=== PATIENT | male | born 1955 | race Caucasian/White ===

== ENCOUNTER → 2019-03-25 | Outpatient (CLI) | payer MEDICARE, OTHER ==
[~2019-03-25] MED LIST: BACL10 PO; BIKTARVY 50-201 EACH PO; Biktarvy 50-200-25 M PO; COMBIVENT RESPIM4 GM INH; COMBIVENT RESPIMAT I INH; HYDR1TAB94 PO; HYDROCODONE-AC1 EAC1; IBUP400 PO; NEURONTIN300 MG PO; OMEP20ER PO; PRED20 PO; Ventolin/Prove6.7 GM; XANAX0.25 MG PO; ZESTORETIC 20-121 EA PO
[2019-03-25 21:44] LABS: Adenovirus F 40/41 Not Detected (NOT DETECT); Astrovirus Not Detected (NOT DETECT); Campylobacter Sp Not Detected (NOT DETECT); Cryptosporidium Not Detected (NOT DETECT); Cyclospora Cayetanensis Not Detected (NOT DETECT); E. Coli O157 Not Detected (NOT DETECT); Entamoeba Histolytica Not Detected (NOT DETECT); Enteroaggregative E. coli-EAEC Not Detected (NOT DETECT); Enteropathogenic E. coli-EPEC Not Detected (NOT DETECT); Enterotoxigenic E. coli-ETEC Not Detected (NOT DETECT); Giardia Lamblia Not Detected (NOT DETECT); Norovirus GI/GII Not Detected (NOT DETECT); Plesiomonas Shigelloides Not Detected (NOT DETECT); Salmonella Sp Not Detected (NOT DETECT); Shiga Toxin-prod E. coli-STEC Not Detected (NOT DETECT); Shigella/Enteroin E. coli-EIEC Not Detected (NOT DETECT); Vibrio Cholerae Not Detected (NOT DETECT); Vibrio Sp Not Detected (NOT DETECT); Yersinia Enterocolitica Not Detected (NOT DETECT)
[2019-03-25 21:45] LABS: Rotavirus A Not Detected (NOT DETECT); Sapovirus Not Detected (NOT DETECT)
== END | disposition home or self-care (01) ==
LOC: LAB SHORT 12:00 → LAB UCHC 12:00 → EDSTATUS 03-24 09:20 → LAB FUT 03-24 09:20
DX: R19.7 Diarrhea, unspecified (principal)
CPT/HCPCS: 0097U

== ENCOUNTER 2019-04-12 10:26 | Inpatient (IN) | payer MEDICARE, OTHER ==
[~2019-04-12] VITALS: Ht 175.3 cm; Wt 63.4 kg
[2019-04-12] MEDS ORDERED: ZESTORETIC 20-121 EA PO (11:20)
[2019-04-12] MEDS ORDERED: NEURONTIN300 MG PO (11:20)
[2019-04-12] MEDS ORDERED: OMEP20ER PO (11:20)
[2019-04-12] MEDS ORDERED: COMBIVENT RESPIM4 GM INH (11:20)
[2019-04-12] MEDS ORDERED: HYDROCODONE-AC1 EAC1 (11:20)
[2019-04-12] MEDS ORDERED: BACL10 PO (11:20)
[2019-04-12] MEDS ORDERED: Ventolin/Prove6.7 GM (11:21)
[2019-04-12] MEDS ORDERED: XANAX0.25 MG PO (11:21)
[2019-04-12 12:04] LABS: BASOPHILS ABSOLUTE AUTO 0.01 K/mm3 (0.00-0.23); BASOPHILS PERCENT AUTO 0 % (0-2); EOSINOPHILS PERCENT AUTO 0 % (0-6); Hematocrit 46.3 % (37.0-53.0); IMMATURE GRAN ABSOLUTE AUTO 0.03 K/mm3 (0.00-0.10); IMMATURE GRAN PERCENT AUTO 0 % (0-1); LYMPHOCYTES ABSOLUTE AUTO 0.58 K/mm3 (0.84-5.20); LYMPHOCYTES PERCENT AUTO 6 % (21-46); MONOCYTES ABSOLUTE AUTO 0.73 K/mm3 (0.16-1.47); MONOCYTES PERCENT AUTO 8 % (4-13); Mean Corpuscular HGB 31.3 pg (26.0-34.0); Mean Corpuscular HGB Conc 32.4 g/dL (31.5-36.5); Mean Corpuscular Volume 97 fL (80-100); NEUTROPHILS ABSOLUTE AUTO 8.27 K/mm3 (1.96-9.15); NEUTROPHILS PERCENT AUTO 86 % (41-73); Platelet Count 101 K/mm3 (150-400); RDW Coefficient Variation 13.2 % (11.7-14.2); RDW Standard Deviation 47.5 fL (35.1-46.3); Red Blood Cell Count 4.79 M/mm3 (4.30-5.90); White Blood Cell Count 9.62 K/mm3 (4.00-11.30)
[2019-04-12 12:15] LABS: Bun/Creatinine Ratio 15.8 (12.0-20.0); Calcium, Blood 8.6 mg/dL (8.5-10.1); Creatinine, Blood 1.52 mg/dL (0.60-1.20); Mean Platelet Volume 13.4 fL (9.1-12.4); Potassium, Blood 3.6 mmol/L (3.5-5.5)
[2019-04-12] MEDS ORDERED: Biktarvy 50-200-25 M PO (13:44)
[2019-04-12] MEDS ORDERED: COMBIVENT RESPIMAT I INH (13:45)
[2019-04-12] MEDS ORDERED: BIKTARVY 50-201 EACH PO (14:28)
--- NOTE | 2019-04-12 19:12 | NUR ---
SHIFT NOTE PT WITH FEVER NOTED TOWARDS THE END OF SHIFT, TREATED WITH TYLENOL WITH FEVER WITH MINIMAL IMPROVEMENT IN FEVER. PT DENIES ANY COMPLAINTS OR NEEDS, REMAINS LYING IN BED. PT WITH CONGESTED COUGH, COARSE WHEEZES NOTED T/O. PT A/O X4, ANSWERING QUESTIONS APPROPTIATELY.
[2019-04-12 21:44] LABS: Source, Urine Clean Catch
[2019-04-12 21:48] LABS: Bilirubin, Urine Neg (Neg); Blood, Urine Neg (Neg); Glucose Qualitative, Urine Neg (Neg); Ketones, Urine Neg (Neg); Leukocyte Esterase, Urine Neg (Neg); Nitrite, Urine Neg (Neg); Protein, Urine Neg (Neg); Specific Gravity, Urine 1.015 (1.003-1.022); Urobilinogen, Urine NORM (Normal)
[2019-04-12 21:52] LABS: Appearance, Urine Clear (Clear); Color, Urine Yellow (P-Yellow)
--- NOTE | 2019-04-12 22:53 | NUR ---
CONTINUOUS OX MACHINE ALARMING. UNABLE TO GET PT'S O2 UP ABOVE 90% ON THE 5 L NC PT WAS ON. NEW FINGER PROBE PLACED. PLACED PT ON OXYMIZER AT 7 L. ALSO BOOSTED PT UP IN BED AND RAISED HEAD OF BED. PT REPORTS THAT THIS IS HOW HE SLEEPS AT HOME ALSO. O2 SATS CAME UP TO 93-94% ON 7 L OXYMIZER.
[2019-04-13 03:44] LABS: BASOPHILS ABSOLUTE AUTO 0.01 K/mm3 (0.00-0.23); BASOPHILS PERCENT AUTO 0 % (0-2); EOSINOPHILS PERCENT AUTO 0 % (0-6); Hematocrit 44.8 % (37.0-53.0); Hemoglobin 14.3 g/dL (13.5-17.5); IMMATURE GRAN ABSOLUTE AUTO 0.04 K/mm3 (0.00-0.10); IMMATURE GRAN PERCENT AUTO 1 % (0-1); LYMPHOCYTES PERCENT AUTO 15 % (21-46); MONOCYTES ABSOLUTE AUTO 0.75 K/mm3 (0.16-1.47); MONOCYTES PERCENT AUTO 9 % (4-13); Mean Corpuscular HGB 31.1 pg (26.0-34.0); Mean Corpuscular HGB Conc 31.9 g/dL (31.5-36.5); Mean Corpuscular Volume 97 fL (80-100); NEUTROPHILS ABSOLUTE AUTO 6.66 K/mm3 (1.96-9.15); NEUTROPHILS PERCENT AUTO 76 % (41-73); Platelet Count 92 K/mm3 (150-400); RDW Coefficient Variation 13.3 % (11.7-14.2); RDW Standard Deviation 48.1 fL (35.1-46.3); White Blood Cell Count 8.76 K/mm3 (4.00-11.30)
[2019-04-13 03:49] LABS: Mean Platelet Volume 13.1 fL (9.1-12.4)
[2019-04-13 04:02] LABS: Alanine Aminotransfer (ALT/SGP 23 U/L (12-78); Albumin, Blood 2.7 g/dL (3.4-5.0); Albumin/Globulin Ratio 0.8 (0.8-1.8); Alk Phos 74 U/L (50-136); Anion Gap 4 mmol/L (6-16); Aspartate Aminotrans (AST/SGOT 33 U/L (12-37); Bilirubin, Total 0.4 mg/dL (0.1-1.0); Blood Urea Nitrogen 12 mg/dL (8-24); Bun/Creatinine Ratio 13.8 (12.0-20.0); CO2, Blood 30 mmol/L (21-32); Calcium, Blood 8.4 mg/dL (8.5-10.1); Chloride, Blood 105 mmol/L (98-108); Creatinine, Blood 0.87 mg/dL (0.60-1.20); Globulin, Blood 3.2 g/dL (2.2-4.0); Glomerular Filtration Rate >60 (60-); Glucose, Blood 106 mg/dL (70-99); Sodium, Blood 139 mmol/L (136-145); Total Protein, Blood 5.9 g/dL (6.4-8.2)
--- NOTE | 2019-04-13 06:01 | NUR ---
SHIFT SUMMARY PT REPORTS FEELING BETTER THIS AM. TEMPERATURE CAME DOWN THROUGHOUT THE NIGHT BUT IS BEGINNING TO INCREASE AGAIN THIS AM, NOW AT 99.2 DEG F. WILL MONITOR. OXYGEN ON 5 L AT START OF SHIFT. PT WAS UNABLE TO MAINTAIN SATS ABOVE 90%. PT PLACED ON 7 L OXYMIZER W/ O2 SATS IN THE LOW TO MID 90'S. LUNG SOUNDS COARSE. FREQUENT NONPRODUCTIVE COUGH. PT AWARE OF NEED FOR SPUTUM SAMPLE IF HE IS ABLE TO PRODUCE ANY. PT DENIES ANY PAIN OR DISCOMFORT. SLEPT THROUGH MOST OF THE NIGHT WHEN NOT BEING WOKEN BY STAFF. PT STEADY ON FEET. AMBULATED WELL TO THE RESTROOM. BLOOD PRESSURE IMPROVED TO SYSTOLIC IN THE LOW 100'S. OTHERWISE NO ACUTE CHANGES THIS SHIFT. WILL CONTINUE TO MONITOR.
--- NOTE | 2019-04-13 12:15 | NUR ---
Spiritual care visit conducted. Patient is sitting up in bed and alert. Patient tells me many stories about his life, many of which involve much pain and suffering. Patient is open about the emotional toll these events have taken on his life and still hurt him today. Patient also shares about the victories, the wins and the blessings. Patient is very courageous and continues to work toward health and wholeness. I listen empathically, reinforce helpful attitudes and practices, hear confession, explore gnosticism beliefs and sources of value and meaning and provide a calming presence and prayer. Patient responds well and shows signs of catharsis, and reduced stress. I will continue to remain available to patient and patient's family.
[2019-04-13 14:06] LABS: % CD 4 POS. LYMPH. 22.5 % (30.8-58.5); ABSOLUTE CD 4 HELPER 68 /uL (359-1519); BASOS 0 % (Not Estab.); EOS 0 % (Not Estab.); HEMATOCRIT 43.9 % (37.5-51.0); HEMATOLOGY COMMENTS: Note: (.); HEMOGLOBIN 15.4 g/dL (13.0-17.7); LYMPHS 4 % (Not Estab.); LYMPHS (ABSOLUTE) 0.3 x10E3/uL (0.7-3.1); MCH 31.3 pg (26.6-33.0); MCHC 35.1 g/dL (31.5-35.7); MCV 89 fL (79-97); MONOCYTES 13 % (Not Estab.); MONOCYTES(ABSOLUTE) 1.1 x10E3/uL (0.1-0.9); MYELOCYTES 1 % (0 - 0); NEUTROPHILS 82 % (Not Estab.); NEUTROPHILS (ABSOLUTE) 7.1 x10E3/uL (1.4-7.0); PLATELETS 99 x10E3/uL (150-450); RBC 4.92 x10E6/uL (4.14-5.80); RDW 11.9 % (12.3-15.4); WBC 8.6 x10E3/uL (3.4-10.8)
--- NOTE | 2019-04-13 15:57 | NUR ---
PT BEGINS WITH HIGH PITCHED WHEEZE WHILE COUGHING, RT CALLED TOROOM, PT CALMS COUGHING ON OWN. RETURNS TO BASELINE QUICKLY, LS REMAINS CLEAR BUT DECREASED
--- NOTE | 2019-04-13 17:27 | NUR ---
SHIFT NOTE PT HAS REMAINED ON 8L O2 VIA NC T/O THE SHIFT WITH NO ISSUES DESPITE A BRIEF EPISODE OF COUGHING THAT IS NOTED FROM EARLIER IN THE SHIFT. PT REMAINS A/O X4, ASNWERING QUESTIONS APPROPRIATELY IN FULL SNTENCES, PT HAS NO COMLPAINTS. PT REMAINS INDEPENDANT IN ROOM. PT OTHERWISE HAS RELAXED AWTCHING TV FO THIS SFHIT
[2019-04-13 21:37] LABS: Adenovirus Not Detected (NOT DETECT); Bordetella pertussis Not Detected (NOT DETECT); Chlamydophila pneumoniae Not Detected (NOT DETECT); Coronavirus 229E Not Detected (NOT DETECT); Coronavirus HKU1 Not Detected (NOT DETECT); Coronavirus NL63 Not Detected (NOT DETECT); Coronavirus OC43 Not Detected (NOT DETECT); Human Metapneumovirus Not Detected (NOT DETECT); Human Rhinovirus/Enterovirus Not Detected (NOT DETECT); Influenza A Not Detected (NOT DETECT); Influenza A/2009-H1 Not Detected (NOT DETECT); Influenza A/H1 Not Detected (NOT DETECT); Influenza A/H3 Not Detected (NOT DETECT); Influenza B Detected (NOT DETECT); Mycoplasma pneumoniae Not Detected (NOT DETECT); Parainfluenza Virus 1 Not Detected (NOT DETECT); Parainfluenza Virus 2 Not Detected (NOT DETECT); Parainfluenza Virus 3 Not Detected (NOT DETECT); Parainfluenza Virus 4 Not Detected (NOT DETECT); Respiratory Syncytial Virus Not Detected (NOT DETECT)
--- NOTE | 2019-04-14 07:30 | NUR ---
REPORT REC'D. PT LYING IN BED. DENIES ANY NEEDS. ASSESSMENT NOTED. IVF INFUSING WELL. IV PATENT. CALL LIGHT IN REACH. OXY IN PLACE.
--- NOTE | 2019-04-14 08:05 | NUR ---
SHIFT SUMMARY ASSUMED CARE OF PT AT 1900, PATIENT AWAKE AND ALERT IN BED EXHIBITING NO SIGNS OF DISTRESS. LUNG SOUNDS CLEAR OF CRACKLES/WHEEZE, VSS AND W/IN NORMAL LIMITS. PATIENT MAINTAINED O2 SATURATION ABOVE 90%, DENIED PAIN, AND REQUIRED ONLY ROUTINE ROUNDING AND INTERVENTION THIS SHIFT. MEDICATED AND TREATED PER EMAR AND PROTOCOL, PASSED CARE AND REPORT TO ONCOMING SHIFT AT 0700, PATIENT AWAKE SITTING IN BED, CALL LIGHT W/IN REACH.
--- NOTE | 2019-04-14 18:41 | NUR ---
PT HAD AN UNEVENTFUL DAY. VISITORS T/O THE DAY. PLEASANT AND COOPERATIVE. NOT MUCH APPETITE. NO NEW COMPLAINTS. NPC, NO SPUTUM COLLECTED. IVF INFUSING WELL. NO SIG CHANGES THIS SHIFT. WILL CONT TO MONITOR, DOCUMENT ANY CHANGES AND REPORT TO FERRYBOAT PILOT RN.
--- NOTE | 2019-04-15 06:58 | NUR ---
NO ACUTE CHANGES THIS SHIFT. VSS, SOME HOTN BUT MAP >70. PT HAS REQUIRED SOME RT TREATMENT BUT HAS FOR THE MOST PART REMAINED CLEAR SOUNDING IN LUNGS WITH OCCASIONAL WHEEZING. PT HAS SLEPT T/O SHIFT. HAS NEEDED NEW IV PLACED. RECEIVING IV STEROIDS. PT HAS USED CALL LIGHT APPROPRIATELY AND HAS BEEN VERY PLEASANT AND COOPERATIVE. WILL CONTINUE TO MONITOR UNTIL SHIFT CHANGE.
--- NOTE | 2019-04-15 19:57 | NUR ---
SHIFT SUMMARY PT A&O4. CALM AND COOPERATIVE WITH CARE. PT RESTING IN BED DURING SHIFT. UP IND IN ROOM. PT SOB WITH EXERTION, STARTED I ON 4L O2 VIA NC, TITRATED TO 2L T/O SHIFT, SPO2 >93%. PT ENCOURAGED COUGHING AND DEEP BREATHING T/O SHIFT. MODERATE AMOUNT OF SPARROW SPUTUM T/O SHIFT. PT DENIES PAIN AND NAUSEA. PT RECEIVING IV ANTIBIOTICS. VSS. NO OTHER ACUTE CHANGES NOTED DURING SHIFT. REPORT GIVEN TO ONCOMING RN.
[2019-04-15] MEDS ORDERED: XANAX0.25 MG PO (20:43)
[2019-04-15] MEDS ORDERED: HYDR1TAB94 PO (20:45)
[2019-04-15] MEDS ORDERED: IBUP400 PO (20:45)
--- NOTE | 2019-04-16 05:22 | NUR ---
SHIFT SUMMARY PT ON 3L VIA NC. LS WHEEZE T/O. PT C/O SOB WITH EXCERTION, O2 SATS DROP DOWN TO HIGH 80s, AND TAKES A FEW MINUTES TO RECOVER. PT HAS A FEW MOMENTS OF ANXIETY THAT IS RESOVLED BY THERAPEUTIC COMMUNICATION. PT WITH HACKING PRODUCTIVE COUGH, THICK SPARROW SPUTUM. NO OTHER CHANGES TO REPORT. WILL CONT TO MONITOR AND PROVIDE CARE UNTIL PRESUMED BY ONCOMING RN.
--- NOTE | 2019-04-16 09:36 | NUR ---
PT A/O X4, TALKING IN FULL SENTENCES, PT LAUGHING AND JOKING WITH STAFF. LS NOW CLEAR IN UPPER LOBES BILAT, DIMINSHED T/O OTHERWISE. SKIN INTACT.
--- NOTE | 2019-04-16 10:12 | NUR ---
PATIENT TRASFERRED FROM PCU TO 10 TO ROOM 337. PATIENT ORIENTED TO ROOM AND USE OF CALL LIGHT. DENIES ANY PAIN OR NEEDS AT THIS TIME. UP WITH SBA, 3LO2 TO MAINTAIN SATS. DROPLET PRECAUTIONS FOR FLU.
--- NOTE | 2019-04-16 17:43 | NUR ---
PATIENT TRANSFERRED FROM PCU TODAY. A/OX4, UP WITH SBA. VSS, ON 3LO2 VIA NC. DENIES ANY PAIN OR DISCOMFORT. HARSH PRODUCTIVE COUGH, DROPLET PRECAUTIONS FOR INFLUENZA. 20G IV TO L FA WNL, NS @ 75ML/HR INFUSING. VOIDING IN URINAL. COOPERATIVE WITH CARE AND CALLS APPROPRIATELY FOR ASSISTANCE.
--- NOTE | 2019-04-17 02:00 | NUR ---
FLU PRECAUTIONS MAINTAINED - DROPLET PRECAUTIONS. IVF INFUSING. TAMIFLU GIVEN EARLIER. CURRENTLY RESTING QUIETLY. CALL LIGHT IN REACH. WILL CONTINUE TO MONITOR.
[2019-04-17 05:16] LABS: Hematocrit 43.5 % (37.0-53.0); Hemoglobin 13.7 g/dL (13.5-17.5); Mean Corpuscular HGB 30.9 pg (26.0-34.0); Mean Corpuscular HGB Conc 31.5 g/dL (31.5-36.5); Mean Corpuscular Volume 98 fL (80-100); Mean Platelet Volume 12.7 fL (9.1-12.4); Platelet Count 122 K/mm3 (150-400); RDW Coefficient Variation 13.2 % (11.7-14.2); RDW Standard Deviation 47.9 fL (35.1-46.3); Red Blood Cell Count 4.43 M/mm3 (4.30-5.90); White Blood Cell Count 5.56 K/mm3 (4.00-11.30)
[2019-04-17 05:46] LABS: Anion Gap 4 mmol/L (6-16); Blood Urea Nitrogen 16 mg/dL (8-24); Bun/Creatinine Ratio 29.4 (12.0-20.0); CO2, Blood 32 mmol/L (21-32); Calcium, Blood 8.5 mg/dL (8.5-10.1); Chloride, Blood 107 mmol/L (98-108); Creatinine, Blood 0.55 mg/dL (0.60-1.20); Glomerular Filtration Rate >60 (60-); Glucose, Blood 131 mg/dL (70-99); Potassium, Blood 4.5 mmol/L (3.5-5.5); Sodium, Blood 143 mmol/L (136-145)
--- NOTE | 2019-04-17 18:03 | NUR ---
PATIENT A/OX4, UP WITH SBA. VSS, 3LO2 TO MAINTAIN SATS. DENIES ANY PAIN OR DISCOMFORT. CONTINUES TO HAVE A POOR APPETITE. COUGHING UP LARGE AMOUNT OF THICK WHITE SPUTUM. PATIENT IS CONTINENT AND USES URINAL INDEPENDENTLY AT BEDSIDE. SKIN INTACT. CALLS APPROPRIATELY FOR ASSISTANCE. NO ACUTE CHANGES THIS SHIFT.
--- NOTE | 2019-04-17 19:45 | NUR ---
BERT SITTING ON HIS BED, JUST FINISHED HIS BREATHING TREATMENT. STATES HE IS FEELING BETTER. COUGH IS STILL PRODUCTIVE BUT ONLY OCCATIONAL HE STATES. LUNG SOUNDS ARE DINIMSHED THROUGHOUT. HE IS INDEPENDENT IN THE ROOM. DENIES ANY NEEDS AT THIS TIME. WILL CONTINUE TO MONITOR, CALL LIGHT IN REACH.
--- NOTE | 2019-04-17 21:48 | NUR ---
BERT WATCHING TV, DENIES ANY NEEDS OR CONCERNS AT THIS TIME. CALL LIGHT IN REACH.
--- NOTE | 2019-04-18 01:02 | NUR ---
BERT ASLEEP IN BED, SATS IN THE 90'S, NO SIGN OF DISTRESS. CALL LIGHT IN REACH.
--- NOTE | 2019-04-18 02:48 | NUR ---
PATIENT CONTINUES TO SLEEP COMFORTABLY IN HIS BED, OXYGEN STILL ON, IV FLUIDS ARE STILL INFUSING. CALL LIGHT IN REACH.
--- NOTE | 2019-04-18 05:42 | NUR ---
SHIFT SUMMARY: BERT IS ON 3 LITERS OF O2 MAINTAINING SATS IN THE 90'S THROUGHOUT THE SHIFT. LUNG SOUNDS ARE DIMINISHED WITH UPPER WHEEZES, COUGH STILL PRODUCTIVE WITH WHITE THICK SPUTUM. INDEPENDENT TO BATHROOM WITH NO DROP IN SATS. APPETITE IS IMPROVING SLIGHTLY. SLEPT MOST OF SHIFT WITH NO PROBLEMS. CALLED APPROPRIATELY. NO ACUTE CHANGES TO NOTE.
[2019-04-18 13:09] LABS: Anion Gap 4 mmol/L (6-16); Blood Urea Nitrogen 17 mg/dL (8-24); Bun/Creatinine Ratio 26.9 (12.0-20.0); CO2, Blood 33 mmol/L (21-32); Calcium, Blood 8.6 mg/dL (8.5-10.1); Chloride, Blood 103 mmol/L (98-108); Creatinine, Blood 0.63 mg/dL (0.60-1.20); Glomerular Filtration Rate >60 (60-); Glucose, Blood 92 mg/dL (70-99); Potassium, Blood 4.3 mmol/L (3.5-5.5); Sodium, Blood 140 mmol/L (136-145)
--- NOTE | 2019-04-18 19:09 | NUR ---
SHIFT SUMMARY: NO ACUTE CHANGES TO REPORT THIS SHIFT. PT A&O; CALM AND COOPERATIVE WITH CARE. INDEPENDENT IN ROOM. INFLUENZA B POSITIVE; DROPLET ISO IN EFFECT. LUNGS COARSE; O2 @ 3L; ROOM AIR AT HOME. IV ABX CONTINUING. REPORT GIVEN TO ONCOMING RN.
--- NOTE | 2019-04-18 22:42 | NUR ---
1935 PT RESTING COMFORTABLY IN BED; DENIES PAIN OR NAUSEA; DROPLET PRECAUTIONS INTACT.
--- NOTE | 2019-04-19 04:55 | NUR ---
SHIFT SUMMARY: 63 Y/O MALE RESTED COMFORTABLY ALL SHIFT; DENIES PAIN OR NAUSEA; LUNG SOUNDS COARSE THROUGHOUT; VOICE CLEAR AND AUDIBLE; ALERT AND ORIENTED X 4, ABLE TO FOLLOW ALL SIMPLE VERBAL COMMANDS; BED LOW POSITION WITH CALL LIGHT AT SIDE.
[2019-04-19 05:53] LABS: Anion Gap 3 mmol/L (6-16); Blood Urea Nitrogen 23 mg/dL (8-24); Bun/Creatinine Ratio 31.2 (12.0-20.0); CO2, Blood 35 mmol/L (21-32); Calcium, Blood 8.7 mg/dL (8.5-10.1); Chloride, Blood 101 mmol/L (98-108); Creatinine, Blood 0.74 mg/dL (0.60-1.20); Glomerular Filtration Rate >60 (60-); Glucose, Blood 131 mg/dL (70-99); Potassium, Blood 4.4 mmol/L (3.5-5.5); Sodium, Blood 139 mmol/L (136-145)
--- NOTE | 2019-04-19 18:33 | NUR ---
SHIFT SUMMARY: NO ACUTE CHANGES TO REPORT THIS SHIFT. PT A&O; CALM AND COOPERATIVE WITH CARE. NO C/O PAIN/ NAUSEA THIS SHIFT. O2 TITRATED DOWN TO 2L; O2 SATS @ 94%; PT ON ROOM AIR AT HOME; PT INDEPENDENT IN ROOM. DROPLET CONTACT; INFLUENZA B POS; HIV POS. IV STEROIDS & DIURETICS CONTINUING. WCTM.
--- NOTE | 2019-04-19 22:08 | NUR ---
RESTING COMFORTABLY IN BED WHILE WEARING O2 AT 2L/M PER NASAL CANNULA; CONTACT PRECAUTIONS FOR INFLUENZA MAINTAINED.
--- NOTE | 2019-04-20 03:55 | NUR ---
SHIFT SUMMARY: 63 Y/O MALE RESTED COMFORTABLY ALL SHIFT WHILE WEARING O2 AT 2L/M PER NASAL CANNULA; DENIES PAIN OR NAUSEA; EAGER TO RETURN HOME TODAY; PT VOICED HE LIVES WITH ELDERLY AUNT IN [facility] AND THAT HIS CHILDREN LIVE IN [facility]; BED LOW POSITION WITH CALL LIGHT AT SIDE.
[2019-04-20] MEDS ORDERED: PRED20 PO (10:29)
--- NOTE | 2019-04-20 10:53 | NUR ---
PT DISCHARGED THE PT VERBALIZED UNDERSTANDING OF THE DC INSTRUCTIONS, THE PTS PERSCRIPTION WAS FAXED TO [facility] REQUESTED, THE PT WAS RECOMMENDED TO CALL HIS PCP TO MAKE A FOLLOW UP APPOINTMENT FOR POST HOSPITAL REVIEW, THE PT WAS WAS TAKEN FOR A WALK AND O2 SATS MEASUERED, THE PT REMAINED ABOVE 95% ON RA PRIOR TO DISCHARGE, PT WAS TRANSFERED VIA WHEELCHAIR ACCOMPANIED BY THE CAREER SERVICES COORDINATOR , BELONGINGS RELEASED TO HIS
== END 2019-04-20 10:58 | disposition home or self-care (01) | DRG 974 ==
LOC: ER 10:26 → PCU 10:27 → MEDS 04-16 09:54
PROVIDERS: Emergency Medicine; Internal Medicine Infectious Disease; Nurse Practitioner Acute Care; ADMIT Internal Medicine
DX: A40.9 Streptococcal sepsis, unspecified (principal); J10.00 Influenza due to other identified influenza virus with unspecified type of pneumonia; B20 Human immunodeficiency virus [HIV] disease; J96.01 Acute respiratory failure with hypoxia; R65.21 Severe sepsis with septic shock; J13 Pneumonia due to Streptococcus pneumoniae; N17.9 Acute kidney failure, unspecified; K21.9 Gastro-esophageal reflux disease without esophagitis; F41.1 Generalized anxiety disorder; G62.9 Polyneuropathy, unspecified; F17.210 Nicotine dependence, cigarettes, uncomplicated; E55.9 Vitamin D deficiency, unspecified; J43.9 Emphysema, unspecified
CPT/HCPCS: 0099U; 36415; 71046; 71260; 80048; 80053; 81003; 83605; 83615; 84145; 85025; 85027; 86361; 87040; 87070; 87077; 87102; 87106; 87186; 87205; 87449; 88108; 88312; 94640; 94760; 94762; 96361; 96365; 96367; 96375; 99285-25; A9270; A9270-GY; G0378; J0456; J0696; J1940; J2405; J2930; J7030; J7050; Q9967

== ENCOUNTER 2019-09-10 05:53 | Day surgery (SDC) | payer MEDICARE, OTHER ==
[~2019-09-10 05:53] MED LIST changes: +ALBU90OI INH; +ERGO50000 PO; +Flonase 0.05% N16 GM; +TRAZ50 PO
--- NOTE | 2019-09-10 09:49 | NUR ---
Patient up to Ambulate independently. Gait steady. Discharge instructions reviewed with patient. Patient verbalizes understanding. Copy given to patient to take home. Discharged via wheelchair to private car for ride home WITH AUNT.
== END 2019-09-10 10:03 | disposition home or self-care (01) ==
LOC: ORSCMMR 05:53 → ORD 07:30 → ORSCMMR 07:30
PROVIDERS: Surgery
PROC: 0FT44ZZ Resection of Gallbladder, Percutaneous Endoscopic Approach (ICD-10-PCS; principal; 2019-09-10 07:30)
PROC: BF031ZZ Plain Radiography of Gallbladder and Bile Ducts using Low Osmolar Contrast (ICD-10-PCS; principal; 2019-09-10 07:30)
DX: K80.10 Calculus of gallbladder with chronic cholecystitis without obstruction (principal); K66.0 Peritoneal adhesions (postprocedural) (postinfection); Z21 Asymptomatic human immunodeficiency virus [HIV] infection status; I10 Essential (primary) hypertension; F17.210 Nicotine dependence, cigarettes, uncomplicated; Z79.899 Other long term (current) drug therapy
CPT/HCPCS: 74300; A9270-GY; C1729; J0690; J1100; J1885; J2250; J2405; J2704; J2710; J3010; J7120

== ENCOUNTER 2019-12-21 18:01 | Inpatient (IN) | payer MEDICARE, OTHER ==
[~2019-12-21] VITALS: Ht 175.3 cm; Wt 63.4 kg
[~2019-12-21 18:01] MED LIST changes: +BIKTARVY 50-201 EAC1 PO; -BIKTARVY 50-201 EACH PO; -ERGO50000 PO; +VITAMIN D31000 UNI1 PO
[2019-12-21 19:01] LABS: BASOPHILS ABSOLUTE AUTO 0.09 K/mm3 (0.00-0.23); BASOPHILS PERCENT AUTO 1 % (0-2); EOSINOPHILS ABSOLUTE AUTO 0.96 K/mm3 (0.00-0.68); EOSINOPHILS PERCENT AUTO 5 % (0-6); Hemoglobin 15.3 g/dL (13.5-17.5); IMMATURE GRAN PERCENT AUTO 1 % (0-1); LYMPHOCYTES PERCENT AUTO 11 % (21-46); MONOCYTES ABSOLUTE AUTO 1.68 K/mm3 (0.16-1.47); MONOCYTES PERCENT AUTO 9 % (4-13); Mean Corpuscular HGB 30.9 pg (26.0-34.0); Mean Corpuscular HGB Conc 32.6 g/dL (31.5-36.5); Mean Corpuscular Volume 95 fL (80-100); Mean Platelet Volume 10.6 fL (9.1-12.4); NEUTROPHILS ABSOLUTE AUTO 14.14 K/mm3 (1.96-9.15); NEUTROPHILS PERCENT AUTO 74 % (41-73); Platelet Count 442 K/mm3 (150-400); RDW Coefficient Variation 13.1 % (11.7-14.2); Red Blood Cell Count 4.95 M/mm3 (4.30-5.90); White Blood Cell Count 19.07 K/mm3 (4.00-11.30)
[2019-12-21 19:17] LABS: Alanine Aminotransfer (ALT/SGP 64 U/L (12-78); Albumin, Blood 2.5 g/dL (3.4-5.0); Albumin/Globulin Ratio 0.5 (0.8-1.8); Alk Phos 136 U/L (50-136); Anion Gap 7 mmol/L (6-16); Aspartate Aminotrans (AST/SGOT 43 U/L (12-37); Bilirubin, Total 0.6 mg/dL (0.1-1.0); Blood Urea Nitrogen 16 mg/dL (8-24); Bun/Creatinine Ratio 21.2 (12.0-20.0); CO2, Blood 27 mmol/L (21-32); Calcium, Blood 9.5 mg/dL (8.5-10.1); Chloride, Blood 97 mmol/L (98-108); Creatinine, Blood 0.75 mg/dL (0.60-1.20); Globulin, Blood 4.7 g/dL (2.2-4.0); Glomerular Filtration Rate >60 (60-); Glucose, Blood 119 mg/dL (70-99); Potassium, Blood 3.7 mmol/L (3.5-5.5); Sodium, Blood 131 mmol/L (136-145); Total Protein, Blood 7.2 g/dL (6.4-8.2); Troponin I <0.015 ng/mL (0.000-0.040)
[2019-12-21] MEDS ORDERED: CLOP75 PO (19:32)
[2019-12-21] MEDS ORDERED: Cilostazol100 MG PO (21:45)
[2019-12-21] MEDS ORDERED: LISINOPRIL-HCT1 EACH PO (21:46)
[2019-12-21] MEDS ORDERED: COMBIVENT RESPIM4 G1 INH (21:46)
[2019-12-21] MEDS ORDERED: BACLOFEN10 MG PO (21:46)
[2019-12-21] MEDS ORDERED: PEPCID40 MG PO (21:47)
[2019-12-21] MEDS ORDERED: XANAX0.25 MG PO (21:47)
[2019-12-21] MEDS ORDERED: NEURONTIN300 MG PO (21:47)
[2019-12-22 00:06] LABS: Adenovirus Not Detected (NOT DETECT); Bordetella pertussis Not Detected (NOT DETECT); Chlamydophila pneumoniae Not Detected (NOT DETECT); Coronavirus 229E Not Detected (NOT DETECT); Coronavirus HKU1 Not Detected (NOT DETECT); Coronavirus NL63 Not Detected (NOT DETECT); Coronavirus OC43 Not Detected (NOT DETECT); Human Metapneumovirus Not Detected (NOT DETECT); Human Rhinovirus/Enterovirus Not Detected (NOT DETECT); Influenza A/2009-H1 Not Detected (NOT DETECT); Influenza A/H1 Not Detected (NOT DETECT); Influenza A/H3 Not Detected (NOT DETECT); Influenza B Not Detected (NOT DETECT); Mycoplasma pneumoniae Not Detected (NOT DETECT); Parainfluenza Virus 1 Not Detected (NOT DETECT); Parainfluenza Virus 2 Not Detected (NOT DETECT); Parainfluenza Virus 3 Not Detected (NOT DETECT); Parainfluenza Virus 4 Not Detected (NOT DETECT); Respiratory Syncytial Virus Not Detected (NOT DETECT); SARS-Cov-2 (COVID-19), BioFire Not Detected (NOT DETECT)
[2019-12-22 05:43] LABS: BASOPHILS ABSOLUTE AUTO 0.07 K/mm3 (0.00-0.23); BASOPHILS PERCENT AUTO 0 % (0-2); EOSINOPHILS ABSOLUTE AUTO 0.85 K/mm3 (0.00-0.68); EOSINOPHILS PERCENT AUTO 5 % (0-6); Hematocrit 39.1 % (37.0-53.0); Hemoglobin 12.9 g/dL (13.5-17.5); IMMATURE GRAN ABSOLUTE AUTO 0.13 K/mm3 (0.00-0.10); IMMATURE GRAN PERCENT AUTO 1 % (0-1); LYMPHOCYTES ABSOLUTE AUTO 1.29 K/mm3 (0.84-5.20); LYMPHOCYTES PERCENT AUTO 8 % (21-46); MONOCYTES ABSOLUTE AUTO 1.33 K/mm3 (0.16-1.47); MONOCYTES PERCENT AUTO 8 % (4-13); Mean Corpuscular HGB 31.2 pg (26.0-34.0); Mean Corpuscular Volume 94 fL (80-100); Mean Platelet Volume 10.6 fL (9.1-12.4); NEUTROPHILS ABSOLUTE AUTO 12.79 K/mm3 (1.96-9.15); NEUTROPHILS PERCENT AUTO 78 % (41-73); Platelet Count 382 K/mm3 (150-400); RDW Coefficient Variation 13.2 % (11.7-14.2); RDW Standard Deviation 45.3 fL (35.1-46.3); Red Blood Cell Count 4.14 M/mm3 (4.30-5.90); White Blood Cell Count 16.46 K/mm3 (4.00-11.30)
[2019-12-22 06:00] LABS: Alanine Aminotransfer (ALT/SGP 51 U/L (12-78); Albumin/Globulin Ratio 0.6 (0.8-1.8); Alk Phos 112 U/L (50-136); Anion Gap 6 mmol/L (6-16); Aspartate Aminotrans (AST/SGOT 40 U/L (12-37); Bilirubin, Total 0.5 mg/dL (0.1-1.0); Blood Urea Nitrogen 13 mg/dL (8-24); Bun/Creatinine Ratio 16.8 (12.0-20.0); CO2, Blood 27 mmol/L (21-32); Calcium, Blood 8.6 mg/dL (8.5-10.1); Chloride, Blood 103 mmol/L (98-108); Creatinine, Blood 0.77 mg/dL (0.60-1.20); Globulin, Blood 3.5 g/dL (2.2-4.0); Glomerular Filtration Rate >60 (60-); Glucose, Blood 98 mg/dL (70-99); Potassium, Blood 3.4 mmol/L (3.5-5.5); Sodium, Blood 136 mmol/L (136-145); Total Protein, Blood 5.5 g/dL (6.4-8.2)
--- NOTE | 2019-12-22 06:09 | NUR ---
SHIFT SUMMARY PATIENT ARRIVED TO ROOM 332 VIA STRETCHER AND WAS ABLE TO SELF TRANSFER TO HIS BED. PATIENT ALERT AND ORIENTED. PATIENT PLACED ON AIRBORNE PRECAUTIONS DUE TO HAVING A TB TEST PENDING. PATIENT RECENTLY HAD A CYST REMOVED FROM HIS LEFT UPPER CHEST WITH THREE SUTURES VISIBLE. HE HAD NO COMPLAINTS OF PAIN AND RECEIVED ONE PRN BREATHING TREATMENT. IV PATENT AND INFUSING WITH NORMAL SALINE AT 75 ML/HR. BED IN LOWEST POSITION WITH WHEELS LOCKED. CALL LIGHT WITHIN REACH. REPORT GIVEN TO ONCOMING RN.
--- NOTE | 2019-12-22 17:10 | NUR ---
V-TACH PT HAD A 5 BEAT RUN OF V-TACH PER PCU RENTAL MANAGEMENT TRAINEE, ASHLEY. PT ASYMPTOMATIC WITH NO COMPLAINTS. VITALS TAKEN. PT'S BP LOW BUT PT HAS HAD LOW BLOOD PRESSURE THROUGH OUT THE DAY. NO SIGNS OF DISTRESS AT THIS TIME. THIS RN CALLED DR. SOLORIO AND LEFT MESSAGE THAT ROOM 332 HAD A 5 BEAT RUN OF V-TACH. WILL CONTINUE TO MONITOR. CALL LIGHT IN REACH.
--- NOTE | 2019-12-22 17:42 | NUR ---
SHIFT SUMMARY MEDICATED FOR PAIN X1 WITH TYLENOL. PT REPORTS PAIN IN LEFT CHEST WITH DEEP BREATHS. OTHER THAN THAT, NO FURTHER COMPLAINTS. PT HAS A GOOD APPETITE. PT DID HAVE A 5 BEAT RUN OF V-TACH THAT WAS ASYMPTOMATIC. MESSAGE LEFT FOR PHYSICIAN. NO FURTHER CHANGES. WAITING FOR TB TEST TO COME BACK. CALL LIGHT IN REACH. WILL CONTINUE TO MONITOR AND REPORT TO ONCOMING RN.
--- NOTE | 2019-12-22 22:35 | NUR ---
pt a/o x4. pt is hypotensive with bp of 87/43. he expressed he does feel dizzy when getting up and ambulating. his baseline bp appears to be on the lower end. hospitalist mejia notified of pt's status. lisinopril dc'd. pt educated to use call light whenever he gets up for safety reasons. he is put on fall risk. no other orders. will continue to monitor.
[2019-12-23 04:57] LABS: BASOPHILS ABSOLUTE AUTO 0.07 K/mm3 (0.00-0.23); BASOPHILS PERCENT AUTO 1 % (0-2); EOSINOPHILS ABSOLUTE AUTO 1.02 K/mm3 (0.00-0.68); EOSINOPHILS PERCENT AUTO 7 % (0-6); Hematocrit 39.1 % (37.0-53.0); Hemoglobin 12.6 g/dL (13.5-17.5); IMMATURE GRAN ABSOLUTE AUTO 0.09 K/mm3 (0.00-0.10); IMMATURE GRAN PERCENT AUTO 1 % (0-1); LYMPHOCYTES ABSOLUTE AUTO 0.83 K/mm3 (0.84-5.20); LYMPHOCYTES PERCENT AUTO 6 % (21-46); MONOCYTES ABSOLUTE AUTO 1.29 K/mm3 (0.16-1.47); MONOCYTES PERCENT AUTO 9 % (4-13); Mean Corpuscular HGB 30.7 pg (26.0-34.0); Mean Corpuscular HGB Conc 32.2 g/dL (31.5-36.5); Mean Corpuscular Volume 95 fL (80-100); Mean Platelet Volume 10.4 fL (9.1-12.4); NEUTROPHILS ABSOLUTE AUTO 11.04 K/mm3 (1.96-9.15); NEUTROPHILS PERCENT AUTO 77 % (41-73); Platelet Count 379 K/mm3 (150-400); RDW Coefficient Variation 13.1 % (11.7-14.2); RDW Standard Deviation 46.1 fL (35.1-46.3); Red Blood Cell Count 4.11 M/mm3 (4.30-5.90); White Blood Cell Count 14.34 K/mm3 (4.00-11.30)
[2019-12-23 05:20] LABS: Thyroid Stimulating Hormone 0.312 uIU/mL (0.360-4.800); Thyroxine (T4) 6.1 ug/dL (4.5-12.1)
--- NOTE | 2019-12-23 05:47 | NUR ---
documentation improvement specialist summary pt a/o x4. calls appropriately. 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 pt complained of chills. tylenol given along with other nursing interventions to decrease temp (refer to previous note). temp decreased to 99.4 when re-assesed. pt understands to use call light when wanting to up. vss other than elevated temp. call light within reach. sr in the high 60's per telecommunications network engineer. pt denies pain.
[2019-12-23 15:08] LABS: % CD 4 POS. LYMPH. 21.5 % (30.8-58.5); ABSOLUTE CD 4 HELPER 344 /uL (359-1519); BASO (ABSOLUTE) 0.1 x10E3/uL (0.0-0.2); BASOS 0 % (Not Estab.); EOS 6 % (Not Estab.); EOS (ABSOLUTE) 0.9 x10E3/uL (0.0-0.4); HEMATOCRIT 42.6 % (37.5-51.0); HEMOGLOBIN 13.7 g/dL (13.0-17.7); IMMATURE GRANULOCYTES 0 % (Not Estab.); LYMPHS 10 % (Not Estab.); LYMPHS (ABSOLUTE) 1.6 x10E3/uL (0.7-3.1); MCH 31.1 pg (26.6-33.0); MCHC 32.2 g/dL (31.5-35.7); MCV 97 fL (79-97); MONOCYTES 9 % (Not Estab.); MONOCYTES(ABSOLUTE) 1.4 x10E3/uL (0.1-0.9); NEUTROPHILS 75 % (Not Estab.); NEUTROPHILS (ABSOLUTE) 11.7 x10E3/uL (1.4-7.0); PLATELETS 397 x10E3/uL (150-450); RBC 4.41 x10E6/uL (4.14-5.80); RDW 12.6 % (11.6-15.4); WBC 15.7 x10E3/uL (3.4-10.8)
--- NOTE | 2019-12-23 16:08 | NUR ---
HYPOTENSION/FEVER PT'S BLOOD PRESSURE 83/62 HR 83 WHEN LYING DOWN AND 93/54 HR 88 WHEN SITTING UP. PT REPORTS FEELING LIKE HE IS GOING TO PASS OUT WHEN SITTING UP AND LEANING FORWARD. THIS RN HAS TO HOLD PT UP. PT IS ALSO FLUSHED IN THE FACE. TEMPERATURE 101.8. TYLENOL ADMINISTERED FOR FEVER. THIS RN TALKED WITH DR. SOLORIO ABOUT PT'S HYPOTENSION/PASSING OUT FEELING AND FEVER. DR. SOOLRIO SAID HE'D ORDER ORTHOSTATICS IN THE AM AND FOR STAFF TO ENCOURAGE PT TO DRINK MORE FLUIDS. WILL CONTINUE TO MONITOR FEVER AND BLOOD PRESSURE. CALL LIGHT IN REACH.
--- NOTE | 2019-12-23 17:28 | NUR ---
SHIFT SUMMARY PT HAS HAD NO COMPLAINTS OF PAIN THIS SHIFT. PT DID SPIKE A TEMP THIS AFTERNOON AND TYLENOL WAS GIVEN. PT'S TEMP DOWN TO 100.2 FROM 101.8. PT'S BLOOD PRESSURE LOW THIS AFTERNOON. DR. SOLORIO IS AWARE OF TEMP AND BP. THIS RN TALKED WITH PT ABOUT DRINKING MORE FLUIDS, ESPECIALLY WITH FEVERS. PT HAS HAD A GOOD APPETITE TODAY. PT VERY DIZZY AND REPORTED FEELING LIKE HE WAS GOING TO PASS OUT THIS AFTERNOON WHEN SITTING UP ON SIDE OF BED. PT ENDED UP GETTING A BED BATH DUE TO THIS. NO ACUTE CHANGES AT THIS TIME. CALL LIGHT IN REACH. WILL CONTINUE TO MONITOR AND REPORT TO ONCOMING RN.
--- NOTE | 2019-12-24 04:44 | NUR ---
CHAIR CAR DRIVER SUMMARY NO ACUTE CHANGES THIS SHIFT. PT AAOX4 AND PLEASANT. HAD LOW GRADE TEMP AGAIN TONIGHT AT 101.1, DOWN TO 99.2 AFTER TYLENOL. PT ALSO CONTINUES TO REPORTS SOME OFF/ON DIZZINESS AT TIMES, HOWEVER VITALS HAVE BEEN STABLE. PT HAS BEEN ABLE TO SLEEP FAIRLY WELL THROUGH THE NIGHT. DENIES PAIN, N/V. REPORTS SOME SOB. PT SOUNDED CONGESTED SO WAS INSTRUCTED TO DEEP COUGH WHICH SEEMED TO HELP. WILL CONTINUE TO MONITOR.
[2019-12-24 05:14] LABS: BASOPHILS ABSOLUTE AUTO 0.07 K/mm3 (0.00-0.23); BASOPHILS PERCENT AUTO 0 % (0-2); EOSINOPHILS ABSOLUTE AUTO 1.38 K/mm3 (0.00-0.68); EOSINOPHILS PERCENT AUTO 8 % (0-6); IMMATURE GRAN ABSOLUTE AUTO 0.11 K/mm3 (0.00-0.10); IMMATURE GRAN PERCENT AUTO 1 % (0-1); LYMPHOCYTES ABSOLUTE AUTO 1.13 K/mm3 (0.84-5.20); LYMPHOCYTES PERCENT AUTO 7 % (21-46); MONOCYTES PERCENT AUTO 10 % (4-13); Mean Corpuscular HGB 31.4 pg (26.0-34.0); Mean Corpuscular HGB Conc 32.6 g/dL (31.5-36.5); Mean Corpuscular Volume 96 fL (80-100); Mean Platelet Volume 10.7 fL (9.1-12.4); NEUTROPHILS ABSOLUTE AUTO 12.18 K/mm3 (1.96-9.15); NEUTROPHILS PERCENT AUTO 74 % (41-73); Platelet Count 384 K/mm3 (150-400); RDW Coefficient Variation 13.1 % (11.7-14.2); RDW Standard Deviation 46.5 fL (35.1-46.3); Red Blood Cell Count 4.46 M/mm3 (4.30-5.90); White Blood Cell Count 16.47 K/mm3 (4.00-11.30)
[2019-12-24 05:45] LABS: Anion Gap 5 mmol/L (6-16); Blood Urea Nitrogen 12 mg/dL (8-24); Bun/Creatinine Ratio 15.4 (12.0-20.0); CO2, Blood 30 mmol/L (21-32); Calcium, Blood 8.9 mg/dL (8.5-10.1); Chloride, Blood 103 mmol/L (98-108); Creatinine, Blood 0.78 mg/dL (0.60-1.20); Glomerular Filtration Rate >60 (60-); Glucose, Blood 126 mg/dL (70-99); Potassium, Blood 3.8 mmol/L (3.5-5.5); Sodium, Blood 138 mmol/L (136-145)
--- NOTE | 2019-12-24 11:35 | NUR ---
TELE MX CALL TO REPORT 9 BEAT VTACH THIS AM, NOTIFIED, STATE TO CONTINUE BETABLOCKER, LATER THIS AM MX REPORT ANOTHER 14 BEAT VTACH, NOTIFIED. PT ASYMPTOMATIC, STATE ONLY MILD DISCOMFORT R/T COUGH, 05/01.
[2019-12-24 14:08] LABS: QUANTIFERON MITOGEN VALUE 1.59 IU/mL (.); QUANTIFERON NIL VALUE 0.13 IU/mL (.); QUANTIFERON TB1 AG VALUE 0.12 IU/mL (.); QUANTIFERON TB2 AG VALUE 0.11 IU/mL (.); QUANTIFERON-TB GOLD PLUS Negative (Negative)
--- NOTE | 2019-12-24 17:55 | NUR ---
Second sputum sample was sent with original patient barcode to LAB because the collect specimen sticker was already processed.
--- NOTE | 2019-12-24 18:27 | NUR ---
SUMMARY PT IS A/O X4, PLEASANT AFFECT. UP SBA. DX PNEUM, UNDERLYING HIV+. LUNGS THIS AM COARSE w RHONCHI, COUGH PROD OF YELLOWISH SPUTUM. SOB w EXERT, BIOX >90% RA. HE HAS BEEN USING FLUTTER INTERMITTANTLY, LUNGS HAVE CLEARED SOMEWHAT DAY HAS PROGRESSED, LESS SOB. DR SOLORIO CONSULT DR SHAH, IN TO SEE HIM TODAY ORDER URINE & SPUTUM SAMPLES, SENT. TELE MX REPORT MULT INSTANCES OF VTACH TODAY, PT HAS BEEN ASYMPTOMATIC. DR SOLORIO ORDER EXTRA METOPROLOL & EHCO THIS AFTERNOON, CONTINUE TO MX. VSS, PT HAS BEEN AFEBRILE T/O DAY, WBC 16.5
--- NOTE | 2019-12-25 04:36 | NUR ---
BLANCHARD GRINDER OPERATOR SUMMARY NO ACUTE CHANGES THIS SHIFT. PT AAOX4 AND PLEASANT. LUNGS COARSE AT TIMES BUT DO CLEAR WHEN PT DOES DEEP COUGHING. STILL PRODUCING THICK YELLOW SPUTUM AT TIMES. PT TO HAVE 3RD SPUTUM SAMPLE SENT LATER TODAY FOR TB RULE OUT. DENIES PAIN, N/V. PT HAS RESTED THROUGH MOST OF THE NIGHT. VSS, WILL CONTINUE TO MONITOR.
[2019-12-25 05:20] LABS: BASOPHILS ABSOLUTE AUTO 0.07 K/mm3 (0.00-0.23); BASOPHILS PERCENT AUTO 0 % (0-2); EOSINOPHILS ABSOLUTE AUTO 1.75 K/mm3 (0.00-0.68); EOSINOPHILS PERCENT AUTO 10 % (0-6); Hematocrit 45.6 % (37.0-53.0); Hemoglobin 14.6 g/dL (13.5-17.5); IMMATURE GRAN ABSOLUTE AUTO 0.12 K/mm3 (0.00-0.10); IMMATURE GRAN PERCENT AUTO 1 % (0-1); LYMPHOCYTES ABSOLUTE AUTO 1.25 K/mm3 (0.84-5.20); LYMPHOCYTES PERCENT AUTO 7 % (21-46); MONOCYTES ABSOLUTE AUTO 1.57 K/mm3 (0.16-1.47); MONOCYTES PERCENT AUTO 9 % (4-13); Mean Corpuscular HGB 31.1 pg (26.0-34.0); Mean Corpuscular Volume 97 fL (80-100); Mean Platelet Volume 10.5 fL (9.1-12.4); NEUTROPHILS ABSOLUTE AUTO 12.96 K/mm3 (1.96-9.15); NEUTROPHILS PERCENT AUTO 73 % (41-73); Platelet Count 410 K/mm3 (150-400); RDW Coefficient Variation 13.2 % (11.7-14.2); RDW Standard Deviation 47.1 fL (35.1-46.3); Red Blood Cell Count 4.69 M/mm3 (4.30-5.90); White Blood Cell Count 17.72 K/mm3 (4.00-11.30)
[2019-12-25 05:48] LABS: Anion Gap 4 mmol/L (6-16); Blood Urea Nitrogen 11 mg/dL (8-24); Bun/Creatinine Ratio 13.7 (12.0-20.0); CO2, Blood 31 mmol/L (21-32); Calcium, Blood 9.1 mg/dL (8.5-10.1); Chloride, Blood 101 mmol/L (98-108); Creatinine, Blood 0.81 mg/dL (0.60-1.20); Glomerular Filtration Rate >60 (60-); Glucose, Blood 149 mg/dL (70-99); Magnesium, Blood 1.9 mg/dL (1.6-2.4); Potassium, Blood 3.8 mmol/L (3.5-5.5); Sodium, Blood 136 mmol/L (136-145)
--- NOTE | 2019-12-25 16:51 | NUR ---
PATIENT REMAINS ON DROPLETT ISOLATION. HE DID RUN A FEVER OF 100.7 THIS AFTERNOON AND WAS GIVEN SOME TYLENOL WITH EFFECTIVE RESULTS; FEVER DROPPED TO 99.3. PATIENT CONTINUES ON IV ABX WITHOUT S/SX OF ADVERSE REACTIONS NOTED OR REPORTED. DENIES PAIN AND DISCOMFORT. SPENDS THE DAY RESTING IN BED. WILL CONTINUE TO MONITOR AND PROVIDE CARE NEEDED.
--- NOTE | 2019-12-26 03:01 | NUR ---
SHIFT SUMMARY PATIENT HAD NO ACUTE CHANGES OBSERVED. AXOX 3 AND SBA TO BSC. USES URINAL AT BEDSIDE. TAKES MEDICATION WHOLE X ONE EACH. PIV REMAINS INTACT. CERAMIC ENGINEER REPORTS NSR 66. VSS/AFEBRILE. REPORTED CHAO X ONE AND RECEIVED TYLENOL PER EMAR. HARSH COUGH. AIRBORNE PRECAUTIONS. CALL LIGHT IN REACH. BED IN LOWEST POSITION. WILL CONTINUE TO MONITOR UNTIL DAY SHIFT NURSE ASSUMES CARE.
[2019-12-26 10:51] LABS: Hematocrit 44.9 % (37.0-53.0); Hemoglobin 14.6 g/dL (13.5-17.5); Mean Corpuscular HGB 31.3 pg (26.0-34.0); Mean Corpuscular HGB Conc 32.5 g/dL (31.5-36.5); Mean Corpuscular Volume 96 fL (80-100); Mean Platelet Volume 10.4 fL (9.1-12.4); Platelet Count 399 K/mm3 (150-400); RDW Coefficient Variation 13.2 % (11.7-14.2); RDW Standard Deviation 47.3 fL (35.1-46.3); Red Blood Cell Count 4.67 M/mm3 (4.30-5.90); White Blood Cell Count 18.99 K/mm3 (4.00-11.30)
--- NOTE | 2019-12-26 17:19 | NUR ---
SHIFT SUMMARY PATIENT ALERT AND ORIENTED THIS SHIFT. PATIENT STANDBY ASSIST IN THE ROOM. PATIENT'S AUNT IN THE ROOM TO VISIT THIS AM. PATIENT TOOK A NAP AFTER LUNCH. PATIENT SITTING UP IN BED WATCHING TELEVISION MOST OF THIS SHIFT. PATIENT DENIES NEEDS AT THIS TIME.
--- NOTE | 2019-12-27 00:19 | NUR ---
GENERAL LOT ATTENDANT REPORTS ELEVEN BEAT RUN OF V-TACH AND BACK TO NSR. ASYMPOTMATIC. CALL LIGHT IN REACH.
--- NOTE | 2019-12-27 03:43 | NUR ---
SHIFT SUMMARY PATIENT HAD NO ACUTE CHANGES OBSERVED. AXOX 3 AND SBA TO BR. USES URINAL AT BEDSIDE. VSS WITH LOW GRADE TEMP 99.2 AT SHIFT CHANGE AND RESOLVED 97.8 LAST VITAL SET. DAY SHIFT RN REPORTED HOSPITALIST ORDERED NO IV ACCESS AND KEPT TELEMETRY IN PLACE. TECH REPORTED NSR W/PVC @ 96. TECH REPORTED ONE ELEVEN BEAT RUN OF V-TACH. ASYMPTOMATIC. HARSH COUGH. AIRBORNE PRECAUTIONS. CALL LIGHT IN REACH. BED IN LOWEST POSITION. WILL CONTINUE TO MONITOR UNTIL DAY SHIFT NURSE ASSUMES CARE.
[2019-12-27 05:10] LABS: BASOPHILS ABSOLUTE AUTO 0.09 K/mm3 (0.00-0.23); BASOPHILS PERCENT AUTO 0 % (0-2); EOSINOPHILS ABSOLUTE AUTO 1.82 K/mm3 (0.00-0.68); EOSINOPHILS PERCENT AUTO 9 % (0-6); Hematocrit 42.8 % (37.0-53.0); IMMATURE GRAN ABSOLUTE AUTO 0.15 K/mm3 (0.00-0.10); IMMATURE GRAN PERCENT AUTO 1 % (0-1); LYMPHOCYTES ABSOLUTE AUTO 1.65 K/mm3 (0.84-5.20); LYMPHOCYTES PERCENT AUTO 8 % (21-46); MONOCYTES ABSOLUTE AUTO 2.17 K/mm3 (0.16-1.47); MONOCYTES PERCENT AUTO 10 % (4-13); Mean Corpuscular HGB 31.1 pg (26.0-34.0); Mean Corpuscular HGB Conc 32.7 g/dL (31.5-36.5); Mean Corpuscular Volume 95 fL (80-100); Mean Platelet Volume 10.3 fL (9.1-12.4); NEUTROPHILS PERCENT AUTO 72 % (41-73); Platelet Count 403 K/mm3 (150-400); RDW Coefficient Variation 13.2 % (11.7-14.2); RDW Standard Deviation 46.5 fL (35.1-46.3); White Blood Cell Count 20.88 K/mm3 (4.00-11.30)
--- NOTE | 2019-12-27 16:20 | NUR ---
SHIFT SUMMARY PATIENT IS PLEASANT, ALERT AND ORIENTED, INDEPENDENT CALLS APPROPRIATELY. PATIENT IS ON ROOM AIR, DENIES ANY SHORTNESS OF BREATH BUT DOES NOTE SIGNIFICANT SPUTUM PRODUCTION. HE HAS HAD NO CONCERNS OF CHEST PAIN OR GENERALIZED PAIN TODAY. HE STATES HE WOULD LIKE TO GO HOME BUT WOULD LIKE TO KNOW ABOUT HIS TEST RESULTS FIRST. HE FEELS THAT HE IS BETTER AND IS READY TO GO HOME WHEN HE HAS A CHANCE.
--- NOTE | 2019-12-28 04:03 | NUR ---
SHIFT SUMMARY PATIENT HAD NO ACUTE CHANGES OBSERVED. AXOX 3 AND INDEPENDENT IN ROOM. USES URINAL AT BEDSIDE. VSS/AFEBRILE. DENIES PAIN, SOB, AND N/V. PRODUCTION HAND REPORTS NSR @ 81. PATIENT REPORTS BREATHING IS IMPROVING. AIRBORNE PRECAUTIONS. CALL LIGHT IN REACH. BED IN LOWEST POSITION. WILL CONTINUE TO MONITOR UNTIL DAY SHIFT NURSE ASSUMES CARE.
[2019-12-28 06:02] LABS: BASOPHILS ABSOLUTE AUTO 0.09 K/mm3 (0.00-0.23); BASOPHILS PERCENT AUTO 1 % (0-2); EOSINOPHILS PERCENT AUTO 11 % (0-6); Hematocrit 44.6 % (37.0-53.0); Hemoglobin 14.6 g/dL (13.5-17.5); IMMATURE GRAN PERCENT AUTO 1 % (0-1); LYMPHOCYTES ABSOLUTE AUTO 1.36 K/mm3 (0.84-5.20); LYMPHOCYTES PERCENT AUTO 7 % (21-46); MONOCYTES ABSOLUTE AUTO 1.84 K/mm3 (0.16-1.47); MONOCYTES PERCENT AUTO 10 % (4-13); Mean Corpuscular HGB 31.1 pg (26.0-34.0); Mean Corpuscular HGB Conc 32.7 g/dL (31.5-36.5); Mean Corpuscular Volume 95 fL (80-100); Mean Platelet Volume 10.7 fL (9.1-12.4); NEUTROPHILS PERCENT AUTO 72 % (41-73); Platelet Count 364 K/mm3 (150-400); RDW Coefficient Variation 13.2 % (11.7-14.2); RDW Standard Deviation 45.9 fL (35.1-46.3); White Blood Cell Count 18.99 K/mm3 (4.00-11.30)
[2019-12-28 06:18] LABS: Anion Gap 6 mmol/L (6-16); Blood Urea Nitrogen 15 mg/dL (8-24); Bun/Creatinine Ratio 25.7 (12.0-20.0); CO2, Blood 27 mmol/L (21-32); Calcium, Blood 8.7 mg/dL (8.5-10.1); Chloride, Blood 100 mmol/L (98-108); Creatinine, Blood 0.58 mg/dL (0.60-1.20); Glomerular Filtration Rate >60 (60-); Glucose, Blood 112 mg/dL (70-99); Sodium, Blood 133 mmol/L (136-145)
[2019-12-28] MEDS ORDERED: CLOP75 PO (08:59)
[2019-12-28] MEDS ORDERED: GUAI600T33 PO (08:59)
[2019-12-28] MEDS ORDERED: LEVOFLOXACIN750 MG PO (08:59)
[2019-12-28] MEDS ORDERED: METO25ER PO (09:00)
[2019-12-28] MEDS ORDERED: PROBIOTIC PO (09:00)
--- NOTE | 2019-12-28 11:22 | NUR ---
review d'c. aware needs to make appts for pcp and . name placed on list to call and make sure f/u made. no iv assess. review all meds and how and when to take. aware meds are at [facility]. answer all questions. in w/c w/volunteer to pov and adult female
== END 2019-12-28 10:48 | disposition home or self-care (01) | DRG 975 ==
LOC: ER 18:01 → MEDS 18:02
PROVIDERS: Emergency Medicine; Internal Medicine; Physician Assistant; ADMIT Internal Medicine
DX: J15.1 Pneumonia due to Pseudomonas (principal); B20 Human immunodeficiency virus [HIV] disease; E44.0 Moderate protein-calorie malnutrition; F17.210 Nicotine dependence, cigarettes, uncomplicated; J43.9 Emphysema, unspecified; Z20.828 Contact with and (suspected) exposure to other viral communicable diseases; E78.5 Hyperlipidemia, unspecified; I10 Essential (primary) hypertension; K21.9 Gastro-esophageal reflux disease without esophagitis; I73.9 Peripheral vascular disease, unspecified; Z68.20 Body mass index [BMI] 20.0-20.9, adult; G62.9 Polyneuropathy, unspecified; J30.9 Allergic rhinitis, unspecified; F41.9 Anxiety disorder, unspecified
CPT/HCPCS: 0202U; 36415; 71046; 71260; 80048; 80053; 83605; 83735; 83880; 84145; 84436; 84443; 84484; 85025; 85027; 86361; 86480; 87040; 87070; 87077; 87186; 87205; 87449; 88108; 88312; 93005; 93010; 94640; 94664; 94667; 94760; 96361; 96365; 96372; 96375; 98960; 99285-25; A9270; A9270-GY; C8929; G0378; J0456; J0696; J1650; J7030; J7050; Q9957; Q9967

== ENCOUNTER 2020-01-02 12:09 | Inpatient (IN) | payer MEDICARE, OTHER ==
[~2020-01-02] VITALS: Ht 172.7 cm; Wt 63.2 kg
[~2020-01-02 12:09] MED LIST changes: +BACLOFEN10 MG PO; +CLOP75 PO; +COMBIVENT RESPIM4 G1 INH; +Cilostazol100 MG PO; +GUAI600T33 PO; +LEVOFLOXACIN750 MG PO; +LISINOPRIL-HCT1 EACH PO; +METO25ER PO; +PEPCID40 MG PO; +PROBIOTIC PO
[2020-01-02 13:07] LABS: BASOPHILS ABSOLUTE AUTO 0.11 K/mm3 (0.00-0.23); BASOPHILS PERCENT AUTO 1 % (0-2); EOSINOPHILS ABSOLUTE AUTO 0.37 K/mm3 (0.00-0.68); EOSINOPHILS PERCENT AUTO 2 % (0-6); Hematocrit 44.9 % (37.0-53.0); Hemoglobin 14.6 g/dL (13.5-17.5); IMMATURE GRAN ABSOLUTE AUTO 0.16 K/mm3 (0.00-0.10); IMMATURE GRAN PERCENT AUTO 1 % (0-1); LYMPHOCYTES ABSOLUTE AUTO 1.48 K/mm3 (0.84-5.20); LYMPHOCYTES PERCENT AUTO 7 % (21-46); MONOCYTES ABSOLUTE AUTO 1.63 K/mm3 (0.16-1.47); MONOCYTES PERCENT AUTO 8 % (4-13); Mean Corpuscular HGB 31.1 pg (26.0-34.0); Mean Corpuscular HGB Conc 32.5 g/dL (31.5-36.5); Mean Corpuscular Volume 96 fL (80-100); Mean Platelet Volume 10.8 fL (9.1-12.4); NEUTROPHILS ABSOLUTE AUTO 16.84 K/mm3 (1.96-9.15); NEUTROPHILS PERCENT AUTO 82 % (41-73); Platelet Count 497 K/mm3 (150-400); RDW Coefficient Variation 13.2 % (11.7-14.2); White Blood Cell Count 20.59 K/mm3 (4.00-11.30)
[2020-01-02 13:24] LABS: Alanine Aminotransfer (ALT/SGP 56 U/L (12-78); Albumin/Globulin Ratio 0.4 (0.8-1.8); Alk Phos 141 U/L (50-136); Anion Gap 7 mmol/L (6-16); Aspartate Aminotrans (AST/SGOT 29 U/L (12-37); Bilirubin, Total 0.4 mg/dL (0.1-1.0); Blood Urea Nitrogen 12 mg/dL (8-24); Bun/Creatinine Ratio 14.8 (12.0-20.0); CO2, Blood 26 mmol/L (21-32); Calcium, Blood 8.6 mg/dL (8.5-10.1); Chloride, Blood 99 mmol/L (98-108); Creatinine, Blood 0.81 mg/dL (0.60-1.20); Globulin, Blood 4.5 g/dL (2.2-4.0); Glomerular Filtration Rate >60 (60-); Glucose, Blood 137 mg/dL (70-99); Potassium, Blood 4.1 mmol/L (3.5-5.5); Sodium, Blood 132 mmol/L (136-145); Total Protein, Blood 6.5 g/dL (6.4-8.2); Troponin I <0.015 ng/mL (0.000-0.040)
[2020-01-02] MEDS ORDERED: PANTOPRAZOLE SO40 M2 PO (13:25)
[2020-01-02] MEDS ORDERED: ATORVASTATIN CA20 MG PO (14:31)
--- NOTE | 2020-01-02 18:45 | NUR ---
ER ADMIT TO PCU 6 AT THIS TIME. TRANSFERS WITH STANDBY ASSIST FROM ER [facility] TO BED. A/A/OX4, IV ABX INFUSING AT THIS TIME. VSS, WILL CONTINUE TO MONITOR UNTIL REPORT GIVEN TO CARAMEL CANDY MAKER HELPER RN.
--- NOTE | 2020-01-02 23:19 | NUR ---
APPROX 2230 PATIENT HAD A RUN OF VTAC LASTING APPROX 30 SECOUNDS, PATIENT WAS ASLEEP AND SNORING VERY LOUDLY AT THE TIME WITH SOME PAUSES IN BREATHING. UPON ASSESSMENT PATIENT STATED HE DID NOT FEEL ANYTHING UNUSUAL. PATIENTS MEAN ARTERIAL PRESSURE WAS 59, OTHERWISE HE WAS ASYMPTOMATIC. IV MAINTENANCE FLUID TEMPORARILY INCREASED IN INFUSION SPEED, NASAL CANNULA PLACED WITH 02 AT 2L AND OXIMETER PLACED ON FINGER. WITHIN A FEW MINUTES, PATIENTS BLOOD PRESSURE WAS INCREASING AND MAP WAS 65. MAINTENANCE FLUID RETURNED TO NORMAL RATE OF INFUSION. MONITORING CLOSELY.
[2020-01-03 03:57] LABS: BASOPHILS ABSOLUTE AUTO 0.12 K/mm3 (0.00-0.23); BASOPHILS PERCENT AUTO 1 % (0-2); EOSINOPHILS ABSOLUTE AUTO 1.09 K/mm3 (0.00-0.68); EOSINOPHILS PERCENT AUTO 7 % (0-6); Hemoglobin 11.7 g/dL (13.5-17.5); IMMATURE GRAN ABSOLUTE AUTO 0.11 K/mm3 (0.00-0.10); IMMATURE GRAN PERCENT AUTO 1 % (0-1); LYMPHOCYTES ABSOLUTE AUTO 1.24 K/mm3 (0.84-5.20); LYMPHOCYTES PERCENT AUTO 8 % (21-46); MONOCYTES ABSOLUTE AUTO 1.11 K/mm3 (0.16-1.47); MONOCYTES PERCENT AUTO 7 % (4-13); Mean Corpuscular HGB 30.9 pg (26.0-34.0); Mean Corpuscular HGB Conc 31.6 g/dL (31.5-36.5); Mean Corpuscular Volume 98 fL (80-100); Mean Platelet Volume 10.6 fL (9.1-12.4); NEUTROPHILS PERCENT AUTO 76 % (41-73); Platelet Count 383 K/mm3 (150-400); RDW Coefficient Variation 13.3 % (11.7-14.2); Red Blood Cell Count 3.79 M/mm3 (4.30-5.90); White Blood Cell Count 15.57 K/mm3 (4.00-11.30)
--- NOTE | 2020-01-03 04:14 | NUR ---
SHIFT SUMMARY: PATIENTS SHORT VTACH RUN DID NOT RETURN AFTER PATIENT WAS PLACED ON 02, SBP IS RUNNING IN 80'S AND 90'S AND PATIENT STATES THAT HE HAS HAD ISSUE WITH THIS FOR A WHILE NOW. NS IS STILL RUNNING AT 200ML/HR, PATIENT ASYMPTOMATIC, HAD XANAX AT BEDTIME, WILL RECHECK THIS AM. NO OTHER ISSUES NOTED, CALL LIGHT WITHIN REACH, BED LOW AND LOCKED WITH EXIT ALARM ON.
[2020-01-03 04:20] LABS: Alanine Aminotransfer (ALT/SGP 31 U/L (12-78); Albumin, Blood 1.5 g/dL (3.4-5.0); Albumin/Globulin Ratio 0.4 (0.8-1.8); Alk Phos 104 U/L (50-136); Anion Gap 4 mmol/L (6-16); Aspartate Aminotrans (AST/SGOT 20 U/L (12-37); Bilirubin, Total 0.4 mg/dL (0.1-1.0); Blood Urea Nitrogen 11 mg/dL (8-24); Bun/Creatinine Ratio 15.6 (12.0-20.0); CO2, Blood 27 mmol/L (21-32); Calcium, Blood 7.9 mg/dL (8.5-10.1); Chloride, Blood 106 mmol/L (98-108); Creatinine, Blood 0.71 mg/dL (0.60-1.20); Globulin, Blood 3.5 g/dL (2.2-4.0); Glomerular Filtration Rate >60 (60-); Glucose, Blood 104 mg/dL (70-99); Potassium, Blood 3.6 mmol/L (3.5-5.5); Sodium, Blood 137 mmol/L (136-145)
[2020-01-03 17:32] LABS: Vancomycin, Trough 8.6 ug/mL (5.0-10.0)
--- NOTE | 2020-01-03 18:18 | NUR ---
SHIFT SUMMARY; A/A/OX4 DURING SHIFT. 2L 02 VIA NC. 38 BEAT RUN OF VTACH DURING AFTERNOON, PT SLEEPING DURING EPISODE, NO ACUTE DISTRESS. DR. WALTON NOTIFIED. MAG ORDERED AND ADMINISTERED PER ORDERS. REMAINS ON TELEMETRY, VSS. USES URINAL AT BEDSIDE AND REPOSITIONS INDEPENDANTLY. WILL CONTINUE TO TREAT AND MONITOR UNTIL CHANGE OF SHIFT.
[2020-01-04 03:47] LABS: BASOPHILS ABSOLUTE AUTO 0.14 K/mm3 (0.00-0.23); BASOPHILS PERCENT AUTO 1 % (0-2); EOSINOPHILS ABSOLUTE AUTO 1.03 K/mm3 (0.00-0.68); EOSINOPHILS PERCENT AUTO 8 % (0-6); IMMATURE GRAN ABSOLUTE AUTO 0.09 K/mm3 (0.00-0.10); IMMATURE GRAN PERCENT AUTO 1 % (0-1); LYMPHOCYTES ABSOLUTE AUTO 1.61 K/mm3 (0.84-5.20); LYMPHOCYTES PERCENT AUTO 12 % (21-46); MONOCYTES ABSOLUTE AUTO 1.53 K/mm3 (0.16-1.47); MONOCYTES PERCENT AUTO 11 % (4-13); Mean Corpuscular HGB 30.5 pg (26.0-34.0); Mean Corpuscular HGB Conc 31.6 g/dL (31.5-36.5); Mean Corpuscular Volume 96 fL (80-100); Mean Platelet Volume 10.4 fL (9.1-12.4); NEUTROPHILS ABSOLUTE AUTO 9.01 K/mm3 (1.96-9.15); NEUTROPHILS PERCENT AUTO 67 % (41-73); Platelet Count 387 K/mm3 (150-400); RDW Coefficient Variation 13.5 % (11.7-14.2); RDW Standard Deviation 48.5 fL (35.1-46.3); Red Blood Cell Count 3.94 M/mm3 (4.30-5.90); White Blood Cell Count 13.41 K/mm3 (4.00-11.30)
--- NOTE | 2020-01-04 06:29 | NUR ---
SHIFT SUMMARY PT SLEPT T/O SHIFT. PT ALERT AND ORIENTED. PT REMAINS HYPOTENSIVE WITH SYSTOLIC BP IN 90'S. HR STABLE. PT REPORTS NO CP OR PRESSURE. OXYGEN SATURATION ABOVE 92% ON 2 L OF OXYGEN VIA NC. PT REPORTS NO PAIN OR DISCOMFORT. WILL CONTINUE TO MONITOR UNTIL REPORT GIVEN TO DAYSHIFT RN.
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
[2020-01-04 16:30] LABS: Adenovirus Not Detected (NOT DETECT); Coronavirus 229E Not Detected (NOT DETECT); Coronavirus HKU1 Not Detected (NOT DETECT); Coronavirus NL63 Not Detected (NOT DETECT)
[2020-01-04 16:31] LABS: Bordetella pertussis Not Detected (NOT DETECT); Chlamydophila pneumoniae Not Detected (NOT DETECT); Coronavirus OC43 Not Detected (NOT DETECT); Human Metapneumovirus Not Detected (NOT DETECT); Human Rhinovirus/Enterovirus Not Detected (NOT DETECT); Influenza A/2009-H1 Not Detected (NOT DETECT); Influenza A/H1 Not Detected (NOT DETECT); Influenza A/H3 Not Detected (NOT DETECT); Influenza B Not Detected (NOT DETECT); Mycoplasma pneumoniae Not Detected (NOT DETECT); Parainfluenza Virus 1 Not Detected (NOT DETECT); Parainfluenza Virus 2 Not Detected (NOT DETECT); Parainfluenza Virus 3 Not Detected (NOT DETECT); Parainfluenza Virus 4 Not Detected (NOT DETECT); Respiratory Syncytial Virus Not Detected (NOT DETECT); SARS-Cov-2 (COVID-19), BioFire Not Detected (NOT DETECT)
[2020-01-04 17:52] LABS: Vancomycin, Trough 13.3 ug/mL (5.0-10.0)
--- NOTE | 2020-01-04 19:17 | NUR ---
SHIFT SUMMARY NO ACUTE CHANGES NOTED THROUGH THE DAY. PT REMAINS A&O X4, O2 VIA NC @ 2 L, PT DENIES SOB/CO. PULMONOLGY WAS CONSULTED PER HOPSITALIST, SPUTUM & RESP SA,PLES SENT. PT IS TOLERATING PO INTAKE. VOIDING WNL, CALLS FOR ASSISTANCE PRN. REPORT GIVEN TO KACY PELAYO. CALL LIGHT IN REACH
[2020-01-05 04:53] LABS: BASOPHILS ABSOLUTE AUTO 0.11 K/mm3 (0.00-0.23); BASOPHILS PERCENT AUTO 1 % (0-2); EOSINOPHILS PERCENT AUTO 9 % (0-6); Hematocrit 39.1 % (37.0-53.0); Hemoglobin 12.3 g/dL (13.5-17.5); IMMATURE GRAN ABSOLUTE AUTO 0.07 K/mm3 (0.00-0.10); IMMATURE GRAN PERCENT AUTO 1 % (0-1); LYMPHOCYTES ABSOLUTE AUTO 1.18 K/mm3 (0.84-5.20); LYMPHOCYTES PERCENT AUTO 10 % (21-46); MONOCYTES ABSOLUTE AUTO 1.31 K/mm3 (0.16-1.47); MONOCYTES PERCENT AUTO 11 % (4-13); Mean Corpuscular HGB 30.4 pg (26.0-34.0); Mean Corpuscular HGB Conc 31.5 g/dL (31.5-36.5); Mean Corpuscular Volume 97 fL (80-100); Mean Platelet Volume 10.4 fL (9.1-12.4); NEUTROPHILS ABSOLUTE AUTO 7.84 K/mm3 (1.96-9.15); NEUTROPHILS PERCENT AUTO 68 % (41-73); Platelet Count 374 K/mm3 (150-400); RDW Coefficient Variation 13.5 % (11.7-14.2); RDW Standard Deviation 48.9 fL (35.1-46.3); Red Blood Cell Count 4.05 M/mm3 (4.30-5.90); White Blood Cell Count 11.51 K/mm3 (4.00-11.30)
[2020-01-05 05:16] LABS: Anion Gap 4 mmol/L (6-16); Blood Urea Nitrogen 10 mg/dL (8-24); Bun/Creatinine Ratio 14.3 (12.0-20.0); CO2, Blood 28 mmol/L (21-32); Chloride, Blood 106 mmol/L (98-108); Glomerular Filtration Rate >60 (60-); Glucose, Blood 111 mg/dL (70-99); Potassium, Blood 3.8 mmol/L (3.5-5.5); Sodium, Blood 138 mmol/L (136-145)
--- NOTE | 2020-01-05 06:28 | NUR ---
PT SLEPT T/O SHIFT. PT HAD ELEVATED TEMP OF 101.4. PT WAS GIVEN TYLENOL AND TEMP LOWERED TO 98.2. VS STABLE. OXYGEN SATURATION REMAINED ABOVE 92% WHILE ON 2 L OF OXYGEN VIA NC. PT NO LONGER ON TELEMETRY D/T MEDICAL FLOOR STATUS. CALL LIGHT WITHIN REACH. WILL CONTINUE TO MONITOR UNTIL REPORT GIVEN TO IVAN PELAYO.
--- NOTE | 2020-01-05 07:27 | NUR ---
ASSUMED PATIENT CARE. PATIENT RESTING COMFORTABLY IN BED, CONVERSING WITH NURSING STAFF. NO SIGNS OF ACUTE DISTRESS, WCTM.
--- NOTE | 2020-01-05 18:30 | NUR ---
NO ACUTE EVENTS THIS SHIFT. PATIENT HYPOTENSIVE AT TIMES. PATIENT HAD FEVER THIS SHIFT OF 100.1 AND 101.5, DECREASED TO 99.8 WITH TYLENOL. IV AND PO ABX TO BE CONTINUED FOR TREATMENT OF SEVERE PNA. PATIENT DENIED PAIN, CHEST/PAIN PRESSURE. COMPLAINED OF CHILLS AT FEBRILE TIMES.
--- NOTE | 2020-01-06 03:30 | NUR ---
SHIFT SUMMARY: 64 Y/O MALE RESTED COMFORTABLY ALL SHIFT; DENIES PAIN OR NAUSEA; PTS LUNG SOUNDS ARE DIMINISHED THROUGHOUT WITH OCCASIONAL NON PRODUCTIVE COUGH; PT WEARING O2 AT 2L/M PER NASAL CANNULA; ALERT AND ORIENTED X 4; HAPPY AND COOPERATIVE; BED LOW POSITION WITH CALL LIGHT AT SIDE.
[2020-01-06 05:12] LABS: BASOPHILS PERCENT AUTO 1 % (0-2); EOSINOPHILS PERCENT AUTO 8 % (0-6); Hematocrit 38.4 % (37.0-53.0); Hemoglobin 12.2 g/dL (13.5-17.5); IMMATURE GRAN ABSOLUTE AUTO 0.08 K/mm3 (0.00-0.10); IMMATURE GRAN PERCENT AUTO 1 % (0-1); LYMPHOCYTES ABSOLUTE AUTO 1.48 K/mm3 (0.84-5.20); LYMPHOCYTES PERCENT AUTO 11 % (21-46); MONOCYTES ABSOLUTE AUTO 1.49 K/mm3 (0.16-1.47); MONOCYTES PERCENT AUTO 11 % (4-13); Mean Corpuscular HGB 30.7 pg (26.0-34.0); Mean Corpuscular HGB Conc 31.8 g/dL (31.5-36.5); Mean Corpuscular Volume 97 fL (80-100); Mean Platelet Volume 10.3 fL (9.1-12.4); NEUTROPHILS ABSOLUTE AUTO 8.84 K/mm3 (1.96-9.15); NEUTROPHILS PERCENT AUTO 68 % (41-73); Platelet Count 401 K/mm3 (150-400); RDW Coefficient Variation 13.5 % (11.7-14.2); RDW Standard Deviation 48.3 fL (35.1-46.3); Red Blood Cell Count 3.97 M/mm3 (4.30-5.90); White Blood Cell Count 13.09 K/mm3 (4.00-11.30)
[2020-01-06 05:41] LABS: Anion Gap 6 mmol/L (6-16); Blood Urea Nitrogen 9 mg/dL (8-24); Bun/Creatinine Ratio 13.2 (12.0-20.0); CO2, Blood 26 mmol/L (21-32); Calcium, Blood 8.2 mg/dL (8.5-10.1); Chloride, Blood 106 mmol/L (98-108); Creatinine, Blood 0.68 mg/dL (0.60-1.20); Glomerular Filtration Rate >60 (60-); Glucose, Blood 109 mg/dL (70-99); Potassium, Blood 4.2 mmol/L (3.5-5.5); Sodium, Blood 138 mmol/L (136-145); Vancomycin, Trough 15.6 ug/mL (5.0-10.0)
--- NOTE | 2020-01-06 08:07 | NUR ---
ASSUMED PATIENT CARE. PATIENT RESTING COMFORTABLY IN BED, NO SIGNS OF ACUTE DISTRESS, WCTM.
--- NOTE | 2020-01-06 10:12 | NUR ---
INITIAL PAL CARE CONSULT - Referral received to document pt's stated wishes for Code status and advanced care planning. Pt had told providers after admission that he did not want CPR or ventilatory support if he had cardiopulmonary failure and . He is seeking active tx of pneumonia and other conditions. During the night a nurse understood him to say that he did want resuscitation "for awhile". Pt was asleep upon entering the room. He woke easily when I said hello and introduced myself. Pt agreeable to conversation re: his wishes for care. Pt's bedside RN came in to attend to IV pump and medications and was present when pt stated that he did not want CPR or ventilatory support for life prolongation if his heart were to stop or he was found without a heartbeat or breath. He does not want invasive respiratory support or ventilation if he is in respiratory failure. He stated, "I'm too old for that shit". He expressed that he does not want to talk about dying or his code staus anymore and I told him we would do our best to prevent that. He had a conversation with one of his Dr's that told him if he quit smoking he would do better and he is sincere in wanting to quit. I reinforced this effort and told him his quality of life and all of his chronic illnesses had the potential to improve if he could quit smoking. I spoke with RT and made referral for smoking cessation coaching and follow up. Pt is sl dyspnic at rest with conversation. He is here for sepsis/pneumonia and exacerbation of his severe COPD. He is on a nasal cannula currently. He appears older than his 64 years and falls asleep quickly when staff leave the room. He is thin and looks profoundly fatigued. Sabrina weakbhavna, SOB brought him to the ER. He sees Dr Valle for HIV+ dx since 2006. Pt is extremely pleasant and expresses appreciation for his care. He does want tx of chronic illnesses and infections at this time and would be ok with noninvasive respiratory support if needed. He does not want feeding tube as life support or dialysis as life support. POLST completed per his wishes and VM left for DR with request for her to sign POLST. Once signed, we will get cope to Medical Records for scanning into his EMR. Pt denies pain and I do not observe any nonverbal indicators that he is experiencing pain or distress, only sl anxiety re: conversation around life sustaining measures and . Report to pt's RN, who was in room for most of our conversation, DR and RT. Pt denies any other needs at this time. He wanted to share information with his aunt about our conversation and I gave him booklet to give to her after he read it, "Hard Choices for [place] People".
--- NOTE | 2020-01-06 15:17 | NUR ---
Spiritual care visit conducted. Patient tells me that he is having a down day and that he can't really put a finger on why he feels this way. We talk about his care plan and ways that he typically gets through "down days" (patient either tries to sleep it off or he likes to color. Patient has coloring supplies but just hasn't got to it). We also talk about his family and the small victory he received today when his doctor approved him for a normal food diet. I listen empathically and provide pastoral dependency counselor, companionship and prayer. Patient responds well and shows signs of an elevated mood.
--- NOTE | 2020-01-06 18:40 | NUR ---
NO ACUTE EVENTS THIS SHIFT. PATIENT HAS INTERMITTENT PRODUCTIVE COUGH, DENIES CHEST PAIN. PATIENT REQUESTED AND ENDORSED IMPROVEMENT WITH BREATHING TREATMENT THIS SHIFT. VSS, IMPROVED BPs TODAY. IV ABX CONTINUED, LUNG SOUNDS IMPROVED OVER COURSE OF SHIFT, LESS DIM. IN BASES.
--- NOTE | 2020-01-06 20:14 | NUR ---
1929 REPORT RECEIVED FROM HUSAM; PT RESTING COMFORTABLY IN BED; DENIES PAIN HAPPY AND COOPERATIVE.
--- NOTE | 2020-01-07 03:32 | NUR ---
SHIFT SUMMARY: 64 Y/O SLENDER MALE RESTED COMFORTABLY ALL SHIFT WITH NO PAIN OR NAUSEA; PT ALERT AND ORIENTED X 4; PTS LUNG SOUNDS ARE COARSE THROUGHOUT WITH OCCASIONAL HARSH PRODUCTIVE COUGH YELLOW PHELGM; PT TENDS TO JUST LAY IN BED AND NEED ENCOURAGEMENT TO WALK BY STAFF; PT IS DNR (PT REFUSES TO WEAR DNR BAND HE SAYS IT JUST MAKES HIM NERVOUS; WORE O2 AT 1L/M PER NASAL CANNULA ALL SHIFT; BED LOW POSITION WITH CALL LIGHT AT SIDE.
[2020-01-07 03:50] LABS: BASOPHILS PERCENT AUTO 1 % (0-2); EOSINOPHILS ABSOLUTE AUTO 0.88 K/mm3 (0.00-0.68); EOSINOPHILS PERCENT AUTO 7 % (0-6); Hematocrit 38.4 % (37.0-53.0); Hemoglobin 12.4 g/dL (13.5-17.5); IMMATURE GRAN ABSOLUTE AUTO 0.04 K/mm3 (0.00-0.10); IMMATURE GRAN PERCENT AUTO 0 % (0-1); LYMPHOCYTES ABSOLUTE AUTO 1.45 K/mm3 (0.84-5.20); LYMPHOCYTES PERCENT AUTO 12 % (21-46); MONOCYTES ABSOLUTE AUTO 1.41 K/mm3 (0.16-1.47); MONOCYTES PERCENT AUTO 12 % (4-13); Mean Corpuscular HGB 31.3 pg (26.0-34.0); Mean Corpuscular HGB Conc 32.3 g/dL (31.5-36.5); Mean Corpuscular Volume 97 fL (80-100); Mean Platelet Volume 10.1 fL (9.1-12.4); NEUTROPHILS ABSOLUTE AUTO 7.94 K/mm3 (1.96-9.15); NEUTROPHILS PERCENT AUTO 67 % (41-73); Platelet Count 353 K/mm3 (150-400); RDW Coefficient Variation 13.5 % (11.7-14.2); RDW Standard Deviation 48.4 fL (35.1-46.3); Red Blood Cell Count 3.96 M/mm3 (4.30-5.90); White Blood Cell Count 11.82 K/mm3 (4.00-11.30)
[2020-01-07 04:21] LABS: Anion Gap 4 mmol/L (6-16); Blood Urea Nitrogen 11 mg/dL (8-24); CO2, Blood 29 mmol/L (21-32); Calcium, Blood 8.2 mg/dL (8.5-10.1); Chloride, Blood 104 mmol/L (98-108); Creatinine, Blood 0.85 mg/dL (0.60-1.20); Glomerular Filtration Rate >60 (60-); Glucose, Blood 110 mg/dL (70-99); Sodium, Blood 137 mmol/L (136-145)
--- NOTE | 2020-01-07 07:18 | NUR ---
ASSUMED PATIENT CARE. PATIENT RESTING COMFORTABLY IN BED, CONVERSING WITH STAFF. NO SIGNS OF ACUTE DISTESS, WCTM.
--- NOTE | 2020-01-07 10:34 | NUR ---
Brief visit this AM. Pt resting in bed upon arrival. Pt denies pain and dyspnea at this time. Pt reports no concerns at this time. MD signature obtained for POLST. Hand delivered copy of POLST to medical records, placed copy of POLST in Pt's chart, and placed original POLST in Pt's belonging bag to go home with. Palliative Care will remain available.
--- NOTE | 2020-01-07 18:22 | NUR ---
NO ACUTE EVENTS THIS SHIFT. PATIENT ABLE TO AMBULATE INDEPENDENTLY IN ROOM. PATIENT STATED FEELING MUCH BETTER COMPARED TO WHEN ADMITTED. RHONCHI SIGNIFICANTLY DIMINISHED FROM YESTERDAY DAY SHIFT THROUGH THIS SHIFT. PATIENT CONTINUES TO HAVE INTERMITTENT COUGH. DR. SHAH VISITED PATIENT TODAY, PLAN IS FOR OUTPATIENT ABX RECS. PATIENT TOLERATED 1 L NC WELL, SAT IN MID-LOW 90S. NON-FEBRILE TODAY.
--- NOTE | 2020-01-07 20:22 | NUR ---
REPORT CALLED TO NEGAR GOODMAN RN; PT TO ROOM 309 VIA WHEELCHAIR WITH ALL PERSONAL BELONGINGS, CHART.
--- NOTE | 2020-01-07 20:38 | NUR ---
PCU 6 TRANSFERR ARRIVED TO ROOM, TRANSFERRED SELF INTO BED. CALL LIGHT GIVEN. INFORMED WILL BE BACK IN TO SEE THE PATIENT SHORTLY. DENIED ANY NEEDS AT THIS TIME.
--- NOTE | 2020-01-07 21:08 | NUR ---
ASSUMED CARE WHEN TRANSFERRED TO FLOOR. AOX3, PLEASANT AND COOPERATIVE. DENIED ANY PAIN OR DISCOMFORT. DENIED SOB AT THIS TIME. LUNG SOUNDS ARE COURSE RALES IN THE UPPER LOBES AND DOWN ON THE LEFT BUT RIGHT SIDE GETS VERY DIMINISHED TO FAINT BREATH SOUNDS IN BASE. COUGH OCCATIONAL PRODUCTION, WHITE TO YELLOW SMALL AMOUNTS. O2 2 LITERS SATS ARE IN THE 90'S. SKIN DRY BUT INTACT, NO ISSUES NOTED. ABLE TO GET UP INDEPENDENT IN THE ROOM. DENIED ANY NEEDS OR COMPLAINTS AT THIS TIME. PM MEDS ADMINISTERED. CALL LIGHT IN REACH.
[2020-01-08 04:56] LABS: BASOPHILS ABSOLUTE AUTO 0.12 K/mm3 (0.00-0.23); BASOPHILS PERCENT AUTO 1 % (0-2); EOSINOPHILS ABSOLUTE AUTO 0.79 K/mm3 (0.00-0.68); EOSINOPHILS PERCENT AUTO 6 % (0-6); Hematocrit 41.9 % (37.0-53.0); Hemoglobin 12.9 g/dL (13.5-17.5); IMMATURE GRAN ABSOLUTE AUTO 0.06 K/mm3 (0.00-0.10); IMMATURE GRAN PERCENT AUTO 1 % (0-1); LYMPHOCYTES ABSOLUTE AUTO 1.48 K/mm3 (0.84-5.20); LYMPHOCYTES PERCENT AUTO 12 % (21-46); MONOCYTES PERCENT AUTO 10 % (4-13); Mean Corpuscular HGB 30.3 pg (26.0-34.0); Mean Corpuscular HGB Conc 30.8 g/dL (31.5-36.5); Mean Corpuscular Volume 98 fL (80-100); Mean Platelet Volume 10.2 fL (9.1-12.4); NEUTROPHILS ABSOLUTE AUTO 8.73 K/mm3 (1.96-9.15); NEUTROPHILS PERCENT AUTO 70 % (41-73); Platelet Count 368 K/mm3 (150-400); RDW Coefficient Variation 13.7 % (11.7-14.2); RDW Standard Deviation 49.7 fL (35.1-46.3); Red Blood Cell Count 4.26 M/mm3 (4.30-5.90); White Blood Cell Count 12.48 K/mm3 (4.00-11.30)
[2020-01-08 05:19] LABS: Anion Gap 6 mmol/L (6-16); Blood Urea Nitrogen 11 mg/dL (8-24); Bun/Creatinine Ratio 14.5 (12.0-20.0); CO2, Blood 29 mmol/L (21-32); Calcium, Blood 8.4 mg/dL (8.5-10.1); Chloride, Blood 101 mmol/L (98-108); Creatinine, Blood 0.76 mg/dL (0.60-1.20); Glomerular Filtration Rate >60 (60-); Glucose, Blood 97 mg/dL (70-99); Potassium, Blood 3.7 mmol/L (3.5-5.5); Sodium, Blood 136 mmol/L (136-145)
--- NOTE | 2020-01-08 06:28 | NUR ---
SHIFT SUMMARY; PATIENT WAS A TRANSFER LAST NIGHT FROM U 6. AOX3, INDEPENDENT IN THE ROOM. LUNG SOUNDS RALES IN THE UPPER LOBES TO LOWER BUT ON THE RIGHT SIDE BASES, IT WAS VERY DIMINISHED AND HARD TO HEAR. PRODUCTIVE COUGH WITH WHITE SPUTUM. NO SOB NOTED. ON 2 LITERS OF O2 SATS IN THE 90'S. VS WITH IN PATIENTS NORM. GOOD APPETITE, NO PAIN OR DISCOMFORT. DISCUSSED PREVENTATIVE CARE OF COPD AND PNEUMONIA. NO OTHER CHANGES TO NOTE. CALL LIGHT IN REACH.
--- NOTE | 2020-01-08 18:57 | NUR ---
END OF SHIFT SUMMARY: PATIENT DENIED PAIN THROUGHOUT SHIFT. PATIENT REPORTED MINIMAL SOB WITH AMBULATION. PATIENT REPORTED FEELING "TIGHT" IN HIS LUNGS THIS AFTERNOON. PATIENT REPORTED RELIEF AFTER RECEIVING TREATMENT FROM RT. PATIENT WEENED FROM 1 L OF O2 VIA NC THIS AFTERNOON. STABLE ON ROOM AIR AROUND 94% SPO2. PATIENT DENIED ANY CHANGES TO BREATHING. PATIENT TOLERATED CHEST CT THIS AFTERNOON. PER DR. AGUSTIN ORDERS, PATIENT NOTIFIED OF BRONCHOSCOPY TOMORROW. PATIENT UNDERSTANDS HIS IS NPO AT MIDNIGHT. EVENING LOVENOX HELD PER ORDERS. PATIENT REPORTS SOME ANXIETY. PROVIDED REASSURANCE AND BASIC INFORMATION ABOUT THE PROCEDURE. DR. AGUSTIN REPORTS SHE WILL BE AT THE BEDSIDE TOMORROW MORNING FOR FURTHER INFORMATION AND EXPLANATION.
--- NOTE | 2020-01-08 19:15 | NUR ---
RECEIVED BEDSIDE REPORT FROM PIERCE [place]. A/O. ON RA. NO NEEDS AT THIS TIME. WILL MONITOR AND PROVIDE CARE T/O SHIFT. CALL LT IN REACH.
--- NOTE | 2020-01-08 19:48 | NUR ---
TALKED TO PT ABOUT HIS CODE STATUS SINCE HE WASN'T WEARING A DNR BAND. PER PT,"I WANT THEM TO TRY IF I NEED IT, I JUST DON'T WANT TO BE PUT ON A MACHINE, MY AUNT KNOWS MY WISHES AND SHE WILL MAKE SURE I'M NOT ON A MACHINE." CALLED THE HOSPITALIST AND CHANGED PT'S CODE STATUS TO FULL CODE.
[2020-01-08 23:10] LABS: % CD 4 POS. LYMPH. 27.5 % (30.8-58.5); ABSOLUTE CD 4 HELPER 440 /uL (359-1519); BASO (ABSOLUTE) 0.1 x10E3/uL (0.0-0.2); BASOS 1 % (Not Estab.); EOS 6 % (Not Estab.); EOS (ABSOLUTE) 0.6 x10E3/uL (0.0-0.4); HEMATOCRIT 35.7 % (37.5-51.0); HEMOGLOBIN 12.1 g/dL (13.0-17.7); IMMATURE GRANULOCYTES 0 % (Not Estab.); LYMPHS 14 % (Not Estab.); LYMPHS (ABSOLUTE) 1.6 x10E3/uL (0.7-3.1); MCH 30.9 pg (26.6-33.0); MCHC 33.9 g/dL (31.5-35.7); MCV 91 fL (79-97); MONOCYTES 11 % (Not Estab.); MONOCYTES(ABSOLUTE) 1.2 x10E3/uL (0.1-0.9); NEUTROPHILS 68 % (Not Estab.); NEUTROPHILS (ABSOLUTE) 7.6 x10E3/uL (1.4-7.0); PLATELETS 375 x10E3/uL (150-450); RBC 3.92 x10E6/uL (4.14-5.80); RDW 12.5 % (11.6-15.4); WBC 11.2 x10E3/uL (3.4-10.8)
--- NOTE | 2020-01-09 03:51 | NUR ---
PT RESTING QUIETLY AT THIS TIME. CALL LT IN REACH.
[2020-01-09 04:38] LABS: BASOPHILS ABSOLUTE AUTO 0.12 K/mm3 (0.00-0.23); BASOPHILS PERCENT AUTO 1 % (0-2); EOSINOPHILS ABSOLUTE AUTO 0.67 K/mm3 (0.00-0.68); EOSINOPHILS PERCENT AUTO 6 % (0-6); Hematocrit 45.1 % (37.0-53.0); Hemoglobin 14.2 g/dL (13.5-17.5); IMMATURE GRAN ABSOLUTE AUTO 0.05 K/mm3 (0.00-0.10); IMMATURE GRAN PERCENT AUTO 0 % (0-1); LYMPHOCYTES ABSOLUTE AUTO 1.59 K/mm3 (0.84-5.20); LYMPHOCYTES PERCENT AUTO 14 % (21-46); MONOCYTES ABSOLUTE AUTO 1.03 K/mm3 (0.16-1.47); MONOCYTES PERCENT AUTO 9 % (4-13); Mean Corpuscular HGB 30.6 pg (26.0-34.0); Mean Corpuscular HGB Conc 31.5 g/dL (31.5-36.5); Mean Corpuscular Volume 97 fL (80-100); Mean Platelet Volume 10.5 fL (9.1-12.4); NEUTROPHILS ABSOLUTE AUTO 8.15 K/mm3 (1.96-9.15); NEUTROPHILS PERCENT AUTO 70 % (41-73); Platelet Count 396 K/mm3 (150-400); RDW Coefficient Variation 13.5 % (11.7-14.2); RDW Standard Deviation 48.5 fL (35.1-46.3); Red Blood Cell Count 4.64 M/mm3 (4.30-5.90); White Blood Cell Count 11.61 K/mm3 (4.00-11.30)
[2020-01-09 04:55] LABS: Anion Gap 3 mmol/L (6-16); Blood Urea Nitrogen 10 mg/dL (8-24); Bun/Creatinine Ratio 12.1 (12.0-20.0); CO2, Blood 30 mmol/L (21-32); Calcium, Blood 8.9 mg/dL (8.5-10.1); Chloride, Blood 102 mmol/L (98-108); Creatinine, Blood 0.83 mg/dL (0.60-1.20); Glomerular Filtration Rate >60 (60-); Glucose, Blood 101 mg/dL (70-99); Potassium, Blood 4.1 mmol/L (3.5-5.5); Sodium, Blood 135 mmol/L (136-145)
--- NOTE | 2020-01-09 05:00 | NUR ---
SHIFT SUMMARY: A/O. A LITTLE ANXIOUS D/T PROCEDURE THIS MORNING. MEDICATED WITH XANAX PER PT REQUEST. NPO SINCE MIDNIGHT. NO COMPLAINTS OF PAIN OR NAUSEA. RESTED OFF AND ON. STATES "I HAVE A LOT ON MY MIND." NO ACUTE CHANGES. WILL CONTINUE TO MONITOR AND PROVIDE CARE UNTIL SHIFT REPORT.
--- NOTE | 2020-01-09 11:24 | NUR ---
01/09/20 1124 Agata Torres MONITOR INTACT WITH CONTINUOUS PULSE OXIMETRY AND INTERMITTENT BP. 3-LEAD EKG REVIEWED WITH PHYSICIAN PRIOR TO START OF PROCEDURE. 2% LIDOCAINE JELLY WITH 5 DROPS GABRIELLA-SYNEPHRINE 0.5% APPLIED TO BILATERAL NARES WITH COTTON TIP APPLICATOR. 2% LIDOCAINE SOLUTION SPRAYED TO OROPHARYNX USING ATOMIZATION DEVICE UNTIL GAG REFLEX GONE.
--- NOTE | 2020-01-09 18:00 | NUR ---
PT AOX4 AND COOPERATIVE OF CARE. PT ABLE TO CALL APPROPRIATELY. PT WAS NPO FOR HIS BRONOCHOSCOPY. PT CAME BACK AND SEEMED TO HAVE TOLERATED PROCEDURE WELL. PT INDEPENDENT IN ROOM. WILL CONTINUE TO MONITOR.
--- NOTE | 2020-01-09 19:24 | NUR ---
RECEIVED BEDSIDE REPORT FROM PIERCE DENTON. PT LYING IN BED WATCHING TV. RESP EVEN ON RA. NO COMPLAINTS OR NEEDS AT THIS TIME. WILL MONITOR AND PROVIDE CARE T/O SHIFT. CALL LT IN REACH.
--- NOTE | 2020-01-10 01:19 | NUR ---
PT OUT WALKING USING A FWW WITH RN.
--- NOTE | 2020-01-10 05:35 | NUR ---
SHIFT SUMMARY: NO COMPLAINTS OF PAIN, NAUSEA, OR SOB. ON RA. RESP EVEN. AMBULATES INDEPENDENTLY USING FWW. AMBULATED IN THE BONNER WITH PIERCE ESCALANTE WITHOUT DIFFICULTY. RESTED WELL OFF AND ON. NO ACUTE CHANGES. WILL CONTINUE TO MONITOR AND PROVIDE CARE UNTIL SHIFT REPORT.
[2020-01-10 10:26] LABS: BASOPHILS ABSOLUTE AUTO 0.12 K/mm3 (0.00-0.23); BASOPHILS PERCENT AUTO 1 % (0-2); EOSINOPHILS ABSOLUTE AUTO 0.52 K/mm3 (0.00-0.68); EOSINOPHILS PERCENT AUTO 4 % (0-6); Hemoglobin 12.7 g/dL (13.5-17.5); IMMATURE GRAN ABSOLUTE AUTO 0.07 K/mm3 (0.00-0.10); IMMATURE GRAN PERCENT AUTO 1 % (0-1); LYMPHOCYTES ABSOLUTE AUTO 1.63 K/mm3 (0.84-5.20); LYMPHOCYTES PERCENT AUTO 12 % (21-46); MONOCYTES ABSOLUTE AUTO 1.14 K/mm3 (0.16-1.47); MONOCYTES PERCENT AUTO 8 % (4-13); Mean Corpuscular HGB 30.9 pg (26.0-34.0); Mean Corpuscular HGB Conc 31.8 g/dL (31.5-36.5); Mean Corpuscular Volume 97 fL (80-100); Mean Platelet Volume 10.5 fL (9.1-12.4); NEUTROPHILS ABSOLUTE AUTO 10.15 K/mm3 (1.96-9.15); NEUTROPHILS PERCENT AUTO 74 % (41-73); Platelet Count 323 K/mm3 (150-400); RDW Coefficient Variation 13.6 % (11.7-14.2); RDW Standard Deviation 48.3 fL (35.1-46.3); Red Blood Cell Count 4.11 M/mm3 (4.30-5.90); White Blood Cell Count 13.63 K/mm3 (4.00-11.30)
--- NOTE | 2020-01-10 17:52 | NUR ---
PT HAS BEEN DOING WELL TODAY. PT AOX4 AND COOPERATIVE OF CARE. PT INDEPENDENT TO RESTROOM AND WILL WALK IN THE BONNER WITH WALKER AND FACE MASK. PT HAS CONTINUED TO HAVE A COUGH AND RT WAS CALLED FIRST PART OF SHIFT PT HAD FELT SOB. PT DOES COUGH UP SOME SPUTTUM. CALL LIGHT WITHIN REACH WILL CONTINUE TO MONITOR.
--- NOTE | 2020-01-10 21:10 | NUR ---
WARM BLANKET AND A CUP OF ICE WATER GIVEN TO PT. NO OTHER NEEDS. CALL LT IN REACH.
--- NOTE | 2020-01-11 01:57 | NUR ---
PT RESTING QUIETLY. CALL LT IN REACH.
--- NOTE | 2020-01-11 05:00 | NUR ---
SHIFT SUMMARY: NO ACUTE CHANGES. PT REPORTS BREATHING BETTER, LESS SOB. PT WALKED WITH RN USING FWW IN THE BONNER. NO COMPLAINTS OF PAIN OR NAUSEA. APPETITE IMPROVING. WILL MONITOR AND PROVIDE CARE UNTIL SHIFT REPORT.
[2020-01-11 05:02] LABS: BASOPHILS ABSOLUTE AUTO 0.12 K/mm3 (0.00-0.23); BASOPHILS PERCENT AUTO 1 % (0-2); EOSINOPHILS ABSOLUTE AUTO 0.81 K/mm3 (0.00-0.68); EOSINOPHILS PERCENT AUTO 6 % (0-6); Hematocrit 42.9 % (37.0-53.0); Hemoglobin 13.4 g/dL (13.5-17.5); IMMATURE GRAN ABSOLUTE AUTO 0.08 K/mm3 (0.00-0.10); IMMATURE GRAN PERCENT AUTO 1 % (0-1); LYMPHOCYTES ABSOLUTE AUTO 1.78 K/mm3 (0.84-5.20); LYMPHOCYTES PERCENT AUTO 13 % (21-46); MONOCYTES ABSOLUTE AUTO 1.33 K/mm3 (0.16-1.47); MONOCYTES PERCENT AUTO 9 % (4-13); Mean Corpuscular HGB 30.6 pg (26.0-34.0); Mean Corpuscular HGB Conc 31.2 g/dL (31.5-36.5); Mean Corpuscular Volume 98 fL (80-100); Mean Platelet Volume 10.7 fL (9.1-12.4); NEUTROPHILS ABSOLUTE AUTO 9.96 K/mm3 (1.96-9.15); NEUTROPHILS PERCENT AUTO 71 % (41-73); Platelet Count 388 K/mm3 (150-400); RDW Coefficient Variation 13.7 % (11.7-14.2); RDW Standard Deviation 49.8 fL (35.1-46.3); Red Blood Cell Count 4.38 M/mm3 (4.30-5.90); White Blood Cell Count 14.08 K/mm3 (4.00-11.30)
[2020-01-11 05:23] LABS: Anion Gap 3 mmol/L (6-16); Blood Urea Nitrogen 9 mg/dL (8-24); Bun/Creatinine Ratio 10.1 (12.0-20.0); CO2, Blood 29 mmol/L (21-32); Calcium, Blood 9.1 mg/dL (8.5-10.1); Chloride, Blood 105 mmol/L (98-108); Creatinine, Blood 0.89 mg/dL (0.60-1.20); Glomerular Filtration Rate >60 (60-); Glucose, Blood 108 mg/dL (70-99); Potassium, Blood 4.7 mmol/L (3.5-5.5); Sodium, Blood 137 mmol/L (136-145)
--- NOTE | 2020-01-11 17:44 | NUR ---
SUMMARY- NEURO INTACT. INDEPENDANT IN ROOM AND AMBULATED ENTIRE BONNER LOOP 3 TIMES TODAY WITH WALKER WITH NO SOB NOTED. LUNGS SOUND CLEAR, HERBIE HYPERSESINANT TO ME. PT USES FLUTTER AND CLEARS SECRETIONS. SPOKE WITH DR SHAH AND PLAN IS TO START A FEW ORAL ABX THAT PT COULD BE DISCHARGED WITH. WILL REPORT TO KACY PELAYO.
[2020-01-12 04:58] LABS: BASOPHILS ABSOLUTE AUTO 0.11 K/mm3 (0.00-0.23); BASOPHILS PERCENT AUTO 1 % (0-2); EOSINOPHILS ABSOLUTE AUTO 0.85 K/mm3 (0.00-0.68); EOSINOPHILS PERCENT AUTO 7 % (0-6); Hematocrit 40.5 % (37.0-53.0); Hemoglobin 12.7 g/dL (13.5-17.5); IMMATURE GRAN ABSOLUTE AUTO 0.06 K/mm3 (0.00-0.10); IMMATURE GRAN PERCENT AUTO 1 % (0-1); LYMPHOCYTES ABSOLUTE AUTO 1.54 K/mm3 (0.84-5.20); LYMPHOCYTES PERCENT AUTO 13 % (21-46); MONOCYTES ABSOLUTE AUTO 1.16 K/mm3 (0.16-1.47); MONOCYTES PERCENT AUTO 10 % (4-13); Mean Corpuscular HGB 30.7 pg (26.0-34.0); Mean Corpuscular HGB Conc 31.4 g/dL (31.5-36.5); Mean Corpuscular Volume 98 fL (80-100); Mean Platelet Volume 10.7 fL (9.1-12.4); NEUTROPHILS ABSOLUTE AUTO 8.52 K/mm3 (1.96-9.15); NEUTROPHILS PERCENT AUTO 70 % (41-73); Platelet Count 352 K/mm3 (150-400); RDW Coefficient Variation 13.8 % (11.7-14.2); RDW Standard Deviation 49.7 fL (35.1-46.3); Red Blood Cell Count 4.14 M/mm3 (4.30-5.90); White Blood Cell Count 12.24 K/mm3 (4.00-11.30)
[2020-01-12 05:23] LABS: Alanine Aminotransfer (ALT/SGP 42 U/L (12-78); Albumin, Blood 2.2 g/dL (3.4-5.0); Albumin/Globulin Ratio 0.5 (0.8-1.8); Alk Phos 101 U/L (50-136); Anion Gap 6 mmol/L (6-16); Aspartate Aminotrans (AST/SGOT 58 U/L (12-37); Bilirubin, Total 0.3 mg/dL (0.1-1.0); Blood Urea Nitrogen 7 mg/dL (8-24); Bun/Creatinine Ratio 8.2 (12.0-20.0); CO2, Blood 27 mmol/L (21-32); Calcium, Blood 8.7 mg/dL (8.5-10.1); Chloride, Blood 101 mmol/L (98-108); Creatinine, Blood 0.86 mg/dL (0.60-1.20); Globulin, Blood 4.6 g/dL (2.2-4.0); Glomerular Filtration Rate >60 (60-); Glucose, Blood 98 mg/dL (70-99); Sodium, Blood 134 mmol/L (136-145); Total Protein, Blood 6.8 g/dL (6.4-8.2)
--- NOTE | 2020-01-12 06:16 | NUR ---
SHIFT SUMMARY PT HAS HAD NO ACUTE CHANGES THIS SHIFT, NO C/O ANY KIND, BP HAS REMAINED LOW THIS SHIFT- 192 98/62, 0248 92/59, 0620 94/56, PT IS ASYMPTOMATIC, BEDRESTING AT THIS TIME, CALL LIGHT IN REACH, WILL CONT TO MONITOR UNTIL REPORT GIVEN TO DAY RN.
[2020-01-12] MEDS ORDERED: SULTRIDS PO (08:52)
[2020-01-12] MEDS ORDERED: LEVO750 PO (08:52)
[2020-01-12] MEDS ORDERED: Florastor250 MG PO (08:53)
[2020-01-12] MEDS ORDERED: VORICONAZOLE PO (08:53)
--- NOTE | 2020-01-12 10:10 | NUR ---
PAL CARE VISIT - Brief supportive visit just prior to pt's d/c. He is anxious to go and is the anand waiting for his wheelchair transporter. Encouraged pt to maintain smoking cessation and he states "I know I can do it. I've been here for days without a cigarette now". Pt is his usual appreciative and friendly self. I congratulated him on being smoke free and wished him well. His progress and recovery appeared remarkable in comparison to when I had last seen him a week ago.
--- NOTE | 2020-01-12 10:33 | NUR ---
DISCHARGE NOTE PATIENT DISCHARGED TO HOME. PATIENT ALERT AND ORIENTED, INDEPENDENT IN THE ROOM THIS SHIFT. PATIENT DENIES SOB THIS SHIFT. PATIENT CONCERNED ABOUT ANTIFUNGAL MEDICATIONS, REASSURED THAT PRESCRIPTION WILL BE SENT TO PHARMACY. PATIENT PROVIDED WITH DISCHARGE AND MEDICATION INSTRUCTIONS. PATIENT STATES NO QUESTIONS AT THIS TIME. IV REMOVED PRIOR TO DISCHARGE. PATIENT DRESSED INDEPENDENTLY. PATIENT TO VEHICLE VIA WHEELCHAIR WITH SUYAPA Gómez
== END 2020-01-12 11:10 | disposition home or self-care (01) | DRG 974 ==
LOC: ER 12:09 → MEDS 17:38 → PCU 17:38 → MEDS 01-07 20:36
PROVIDERS: Emergency Medicine; Family Medicine; Internal Medicine; Internal Medicine Infectious Disease; Internal Medicine Pulmonary Disease; ADMIT Hospitalist
PROC: 0BD98ZX Extraction of Lingula Bronchus, Via Natural or Artificial Opening Endoscopic, Diagnostic (ICD-10-PCS; principal; 2020-01-09 11:30)
DX: A41.9 Sepsis, unspecified organism (principal); J85.0 Gangrene and necrosis of lung; B20 Human immunodeficiency virus [HIV] disease; J18.9 Pneumonia, unspecified organism; E44.0 Moderate protein-calorie malnutrition; R65.20 Severe sepsis without septic shock; I10 Essential (primary) hypertension; I73.9 Peripheral vascular disease, unspecified; J43.9 Emphysema, unspecified; K21.9 Gastro-esophageal reflux disease without esophagitis; F41.9 Anxiety disorder, unspecified; M54.9 Dorsalgia, unspecified; F17.210 Nicotine dependence, cigarettes, uncomplicated; Z20.828 Contact with and (suspected) exposure to other viral communicable diseases
CPT/HCPCS: 0202U; 36415; 71046; 71250; 71260; 74177; 80048; 80053; 80202; 83605; 83690; 84484; 85025; 86361; 87070; 87075; 87205; 87305; 87449; 88108; 88312; 93005; 93010; 94640; 94664; 94667; 94668; 94760; 96365; 96366; 96368; 97116; 97161; 98960; 99285-25; 99407; A9270; A9270-GY; J0456; J0692; J1650; J2001; J2250; J3010; J3370; J3465; J3475; J7030; J7050; Q9967

== ENCOUNTER 2020-02-25 09:12 | Emergency (ER) | payer MEDICARE ==
[~2020-02-25] VITALS: Ht 175.3 cm; Wt 66.2 kg
[~2020-02-25 09:12] MED LIST changes: +ATORVASTATIN CA20 MG PO; +Florastor250 MG PO; +LEVO750 PO; +PANTOPRAZOLE SO40 M2 PO; +SULTRIDS PO; +VORICONAZOLE PO
== END 2020-02-25 10:52 | disposition home or self-care (01) ==
LOC: ER 09:12
DX: M25.562 Pain in left knee (principal); F17.210 Nicotine dependence, cigarettes, uncomplicated; Z88.0 Allergy status to penicillin; Z79.02 Long term (current) use of antithrombotics/antiplatelets; Z79.899 Other long term (current) drug therapy
CPT/HCPCS: 73564; 99283-25

== ENCOUNTER 2023-02-12 10:20 | Inpatient (IN) | payer MEDICARE ==
[~2023-02-12] VITALS: Ht 175.3 cm; Wt 82.2 kg
[2023-02-12] VITALS (12 sets, daily range): BP systolic 119–170; BP diastolic 67–140
[~2023-02-12 10:20] MED LIST changes: +ATOR40TA PO; +Aspir 8181 MG PO; +ERGO50000; +FLUT.05NI; +HYDROCODONE-AC1 EA10 PO; +STIOLTO RESPIMAT4 G1 INH
[2023-02-12 10:42] LABS: BASOPHILS ABSOLUTE AUTO 0.06 K/mm3 (0.00-0.23); BASOPHILS PERCENT AUTO 1 % (0-2); EOSINOPHILS ABSOLUTE AUTO 0.03 K/mm3 (0.00-0.68); EOSINOPHILS PERCENT AUTO 0 % (0-6); Hematocrit 51.5 % (37.0-53.0); Hemoglobin 17.1 g/dL (13.5-17.5); IMMATURE GRAN ABSOLUTE AUTO 0.03 K/mm3 (0.00-0.10); IMMATURE GRAN PERCENT AUTO 0 % (0-1); LYMPHOCYTES ABSOLUTE AUTO 1.19 K/mm3 (0.84-5.20); LYMPHOCYTES PERCENT AUTO 12 % (21-46); MONOCYTES ABSOLUTE AUTO 0.91 K/mm3 (0.16-1.47); MONOCYTES PERCENT AUTO 9 % (4-13); Mean Corpuscular HGB 32.7 pg (26.0-34.0); Mean Corpuscular HGB Conc 33.2 g/dL (31.5-36.5); Mean Corpuscular Volume 99 fL (80-100); Mean Platelet Volume 11.2 fL (9.1-12.4); NEUTROPHILS ABSOLUTE AUTO 7.75 K/mm3 (1.96-9.15); NEUTROPHILS PERCENT AUTO 78 % (41-73); Platelet Count 229 K/mm3 (150-400); RDW Coefficient Variation 12.9 % (11.7-14.2); RDW Standard Deviation 47.3 fL (35.1-46.3); Red Blood Cell Count 5.23 M/mm3 (4.30-5.90); White Blood Cell Count 9.97 K/mm3 (4.00-11.30)
[2023-02-12 10:45] LABS: Base Excess Venous 9.7 mmol/L; Bicarbonate Venous 28.5 mmol/L (24.0-30.0); PCO2 Venous 69.9 mmHg (38-42); pH Blood Venous 7.32 (7.34-7.37)
[2023-02-12 11:08] LABS: Albumin, Blood 3.4 g/dL (3.4-5.0); Albumin/Globulin Ratio 0.6 (0.8-1.8); Bilirubin, Total 1.1 mg/dL (0.1-1.0); Bun/Creatinine Ratio 15.8 (12.0-20.0); Creatinine, Blood 1.01 mg/dL (0.60-1.20); Globulin, Blood 5.7 g/dL (2.2-4.0); Potassium, Blood 3.7 mmol/L (3.5-5.5); Thyroid Stimulating Hormone 0.239 uIU/mL (0.360-4.800); Total Protein, Blood 9.1 g/dL (6.4-8.2)
[2023-02-12 12:24] LABS: Source, Urine Clean Catch
[2023-02-12 12:39] LABS: Appearance, Urine Cloudy (Clear); Blood, Urine 5+ (Neg); Color, Urine Yellow (P-Yellow); Glucose Qualitative, Urine Neg (Neg); Ketones, Urine Neg (Neg); Leukocyte Esterase, Urine 3+ (Neg); Nitrite, Urine Neg (Neg); Protein, Urine 3+ (Neg); Specific Gravity, Urine 1.015 (1.003-1.022); Urobilinogen, Urine 3+ (Normal)
[2023-02-12 12:59] LABS: Bilirubin, Urine 1+ (Neg)
[2023-02-12 13:00] LABS: Amorphous Light (0-Heavy); Bacteria Many /hpf; Red Blood Cells, Urine 50-100 /hpf (0-2); Squamous Epithelial Cells Rare /hpf (Few); White Blood Cells, Urine 25-50 /hpf (0-5)
[2023-02-12 15:15] LABS: PCO2 Arterial 92.6 mmHg (35-45); PO2 Arterial 295 mmHg (80-100); pH Blood Arterial 7.21 (7.35-7.45)
[2023-02-12 15:32] LABS: U Amphetamine Screen Not Detected; U Barbituate Screen Not Detected; U Benzodiazapine Screen DETECTED; U Buprenorphine Screen Not Detected; U Cannabinoids Screen Not Detected; U Cocaine Screen Not Detected; U Methadone Screen Not Detected; U Methamphetamine Screen Not Detected; U Opiates Screen Not Detected; U Oxycodone Screen Not Detected; U Phencyclidine Screen Not Detected; U Propoxyphene Screen Not Detected
[2023-02-12 18:14] LABS: Source, Urine Foley catheter
--- NOTE | 2023-02-12 18:22 | NUR ---
Spoke to pt's Aunt Svitlana at [phone]. She states she and the patient are roommates. She asked that we call if pt's condition worsens during the night, and she understands that pt is now on bipap and not waking up much at this point. She also acknowledges pt's wishes per KIANA (on file) as DNR with limited treatment. She only asks we call her if pt's condition worsens, and requests we change to comfort care instead of intubation if it comes down to it. She is planning to visit pt tomorrow.
[2023-02-12 18:25] LABS: Appearance, Urine Cloudy (Clear); Bilirubin, Urine Neg (Neg); Blood, Urine 5+ (Neg); Color, Urine Yellow (P-Yellow); Glucose Qualitative, Urine Neg (Neg); Ketones, Urine Neg (Neg); Leukocyte Esterase, Urine 2+ (Neg); Nitrite, Urine Neg (Neg); Protein, Urine 3+ (Neg); Urobilinogen, Urine 2+ (Normal)
--- NOTE | 2023-02-12 18:57 | NUR ---
ASSUMPTION OF CARE/ SHIFT SUMMARY PATIENT ARRIVED TO UNIT FROM ER AROUND 1800. PATIENT OPENS EYES TO VERBAL STIMULUS BUT DOES NOT REPLY. PATIENT MOVES ALL EXTREMITIES TO NOXIOUS STIMULI. PATIENT NOT FOLLOWING ANY COMMANDS AT THIS TIME. PATIENT AFEBRILE. NO SIGNS OF PAIN NOTED AT THIS TIME. PATIENT SATTING 90% AND GREATER ON BIPAP 16/8, 35% FIO2. LUNGS DIMINISHED IN UPPER LOBES AND COARSE/ WHEEZY IN LOWER LOBES. PATIENT IN SR WITH BBB AND OCCASIONAL PVCS. HR 80S TO LOW 100S. SBP 140S TO 170S. CAP REFILL GREATER THAN 3 SECONDS IN TOES. DATE OF LAST BM UNKNOWN. ABD SOFT, MILD DISTENDED, WITH NORMOACTIVE BOWEL SOUNDS NOTED. FLORES INSERTED. URINE ANGELA IN COLOR, FOUL-SMELLING AND CLOUDY. SKIN COLD AND DRY. FEET PALE. LEGS DRY AND PEELING. SCATTERED SCABS TO ARMS AND LEGS. PICS OF SCABS TAKEN AND PLACED IN CHART. BED LOW, CALL LIGHT IN REACH, BED ALARM ON. REPORT WILL BE GIVEN TO ASSUMING SUGAR CANE FARM MANAGER NURSE SHORTLY.
[2023-02-12 19:16] LABS: Bacteria Many /hpf; Red Blood Cells, Urine TNTC /hpf (0-2); Squamous Epithelial Cells Rare /hpf (Few); White Blood Cells, Urine 50-100 /hpf (0-5)
[2023-02-12 19:17] LABS: Mucus Light (0-Heavy)
[2023-02-12 20:43] LABS: Base Excess Venous 8.1 mmol/L; Bicarbonate Venous 29.9 mmol/L (24.0-30.0); pH Blood Venous 7.38 (7.34-7.37)
--- NOTE | 2023-02-12 22:34 | NUR ---
PT PLACED ON CPAP FOR THE NIGHT
[2023-02-13] VITALS (15 sets, daily range): BP systolic 103–141; BP diastolic 55–87
[2023-02-13 03:26] LABS: Hematocrit 46.6 % (37.0-53.0); Hemoglobin 14.9 g/dL (13.5-17.5); Mean Corpuscular HGB 32.3 pg (26.0-34.0); Mean Corpuscular Volume 101 fL (80-100); Mean Platelet Volume 11.2 fL (9.1-12.4); Platelet Count 220 K/mm3 (150-400); RDW Coefficient Variation 13.1 % (11.7-14.2); RDW Standard Deviation 49.1 fL (35.1-46.3); Red Blood Cell Count 4.62 M/mm3 (4.30-5.90); White Blood Cell Count 10.72 K/mm3 (4.00-11.30)
[2023-02-13 03:27] LABS: Base Excess Venous 8.4 mmol/L; PCO2 Venous 58.7 mmHg (38-42); pH Blood Venous 7.37 (7.34-7.37)
[2023-02-13 04:22] LABS: Albumin, Blood 2.8 g/dL (3.4-5.0); Albumin/Globulin Ratio 0.6 (0.8-1.8); Bilirubin, Total 0.7 mg/dL (0.1-1.0); Bun/Creatinine Ratio 21.2 (12.0-20.0); Calcium, Blood 9.6 mg/dL (8.5-10.1); Creatinine, Blood 0.94 mg/dL (0.60-1.20); Free Thyroxine 1.15 ng/dL (0.70-1.60); Magnesium, Blood 2.5 mg/dL (1.6-2.4); Phosphorus, Blood 2.9 mg/dL (2.5-4.9); Potassium, Blood 4.1 mmol/L (3.5-5.5); Thyroid Stimulating Hormone 0.077 uIU/mL (0.360-4.800); Total Protein, Blood 7.8 g/dL (6.4-8.2)
--- NOTE | 2023-02-13 05:56 | NUR ---
SHIFT SUMMERY PT IS ALERT AND ORIENTED X3, ABLE TO MAKE NEEDS KNOWN AND FOLLOW COMMANDS. PT REYNOLDS W/GENERALIZED WEAKNESS. HE HAS BEEN COMPLIANT W/BIPAP OVERNIGHT. OXYGEN SAT >90%. BREAKS GIVEN TOLERATED FOR MOUTH CARE. PT HAS A FLORES CATH DRAINING URINE TO GRAVITY. BP HAS BEEN WNL, PT HAS BEEN AFEBRILE. HE HAS BEEN SR ON THE MEDICAL CODING TECHNICIAN. HE HAS DENIED PAIN OR DISCOMFORT AND HAS BEEN PLEASANT AND COOPERATIVE WITH CARE.
--- NOTE | 2023-02-13 08:00 | NUR ---
INITIAL ASSESSMENT PATIENT ALERT AND ORIENTED TO ALL QUESTIONS EXCEPT MONTH THIS AM. PATIENT PLEASANT, CALM AND COOPERATIVE. HAND TREMORS NOTED; PATIENT STATES THIS IS NORMAL FOR HIM. PATIENT AFEBRILE. PATIENT DENIES PAIN OR DISCOMFORT. PATIENT WEAK BUT ABLE TO MOVE ALL EXTREMITIES. PATIENT STATES HE NORMALLY HAS NO DIFFICULTIES GETTING AROUND AT HOME. PATIENT EITHER ON BIPAP 16/8, RATE OF 14 AND 40% FIO2 OR ON 7 L NC FOR BREAKS. LUNGS DIM WITH RHONCHI THROUGHOUT. LOWER LOBES ALSO COARSE. PATIENT COUGHING UP LARGE AMOUNTS OF EXTREMELY THICK, TENACIOUS, YELLOW/ SPARROW SPUTUM; SAMPLE SENT TO LAB. PATIENT IN SR WITH BBB AND PVCS, HR IN THE 70S. SBP LOW 100S TO 130S. CAP REFILL IN TOES GREATER THAN 3 SECONDS. GI APPEARS WNL. PATIENT TOLERATING WATER, JELLO AND PILLS THIS AM. FLORES DRAINING ANGELA COLORED URINE; CLOUDY AND FOUL-SMELLING. SKIN COLD, PALE, DRY, LEGS SCALING. FACE RICKEY. SCATTERED SCABS NOTED T/O BODY. IVS FLUSHED AND SALINE LOCKED. ADMIT HISTORY COMPLETED THIS AM. BED LOW, CALL LIGHT IN REACH. CARE CONTINUES.
--- NOTE | 2023-02-13 10:58 | NUR ---
SHIFT SUMMARY PATIENT REMAINED ALERT AND ORIENTED, CALM, PLEASANT AND COOPERATIVE. PATIENT REMAINED AFEBRILE. PATIENT HAD NO COMPLAINTS OF PAIN OR DISCOMFORT THROUGHOUT SHIFT. PATIENT WORKED WITH THERAPY AND DID WELL 1 PERSON ASSIST WITH WALKER. PATIENT LUNGS REMAIN COARSE/ RHONCHOROUS/ WHEEZY/ DIM. PATIENT CONTINUES TO COUGH UP MODERATE TO LARGE AMOUNT OF THICK, TENACIOUS, SPARROW/ YELLOW SPUTUM. SAMPLE SENT TO LAB THIS SHIFT. PATIENT SATTING WELL ON EITHER BIPAP 16/8 AND 40% FIO2 OR 7 L NC. PATIENT REMAINED SR WITH BBB AND PVCS. HR 60S TO 70S. SBP LOW 100S TO 130S. NO BM THIS SHIFT. PATIENT TOLERATING FLUIDS, FOOD AND MEDICATIONS WELL THIS SHIFT. FLORES REMAINS DRAINING ANGELA, CLOUDY, FOUL SMELLING URINE. NO CHANGED NOTED TO SKIN. IVS SALINE LOCKED. ADMIT HX COMPLETED THIS SHIFT. CALLED [facility] AND RECEIVED FAX OF PATIENT'S HOME MEDICATIONS ( HE CAN'T RECALL THEM) BUT HAVE NOT BEEN ABLE TO PUT THEM IN MED REC YET. MED LIST ON FRONT OF CHART; MED FLOOR NURSE INFORMED. AUNT HERE TO VISIT. PATIENT WILL BE TRANSFERRED TO MEDICAL FLOOR SHORTLY.
--- NOTE | 2023-02-13 11:05 | NUR ---
PATIENT SUCCESSFULLY TRANSFERRED TO MEDICAL FLOOR, ROOM 361. ALL BELONGINGS SENT WITH PATIENT. AUNT YENI FOLLOWED PATIENT TO MEDICAL FLOOR. DISCHARGE FROM UNIT COMPLETE.
--- NOTE | 2023-02-13 14:34 | NUR ---
Pt Has been talking with family and staff. He is reconsidering his code status. He is wanting full treatment. After discussion physician contacted and pt made full code status.
--- NOTE | 2023-02-13 15:18 | NUR ---
Patient is sitting on a chair and alert. He tells me about his medical issues and the rough time he has been having. He tells me about his change in code status back to full code because he states that he "ain't no quitter" and because he had "no peace" about any other code status option. He says that he wants to be at peace and live to be 89 y/o regardless of what shape he is in when he gets to that age. He is a trained commis chef who, now, hates to cook but he does enjoy a small amount of gardening. He says that he has studied many religions and taken in a bit from all of them. He welcomes prayer and is deeply moved by it and sits in silence with his eyes closed for several minutes at the comclusion of the prayer. He finally takes a deep breath and states that the prayer was very meaningful and remains in a reflective state until I exit the room. I provided therapeutic listening and reinforced helpful attitudes and practices. I will continue to remain available to patient and family.
--- NOTE | 2023-02-13 16:52 | NUR ---
SHIFT SUMMARY PT CAME DOWN FROM ICU TO MED FLOOR. PT O2 SAT DROPS WHEN PT SLEEPS, REQUIRING O2 TO BE INCREASED. PT O2 SAT STABLE WHEN SITTING IN CHAIR. BIPAP MACHINE IN ROOM TO BE USED DURING SLEEP. NO ACUTE EVENTS AT THIS TIME. PT A&OX3-4 AND IS COOPERATIVE WITH CARE. VSS. PT LEFT IN A POSITION OF SAFETY WITH NONSKID SOCKS IN PLACE, BED/CHAIR ALARM ENABLED, BED LOCKED AND IN LOWEST POSITION, ROOM FREE OF DEBRIS, AND CALL LIGHT WITHIN REACH.
[2023-02-13 18:10] LABS: % CD 4 POS. LYMPH. 22.7 % (30.8-58.5); ABSOLUTE CD 4 HELPER 318 /uL (359-1519); BASOS 0 % (Not Estab.); EOS 0 % (Not Estab.); HEMATOCRIT 47.8 % (37.5-51.0); HEMOGLOBIN 16.1 g/dL (13.0-17.7); IMMATURE GRANULOCYTES 0 % (Not Estab.); LYMPHS 14 % (Not Estab.); LYMPHS (ABSOLUTE) 1.4 x10E3/uL (0.7-3.1); MCH 32.3 pg (26.6-33.0); MCHC 33.7 g/dL (31.5-35.7); MCV 96 fL (79-97); MONOCYTES 15 % (Not Estab.); MONOCYTES(ABSOLUTE) 1.5 x10E3/uL (0.1-0.9); NEUTROPHILS 71 % (Not Estab.); NEUTROPHILS (ABSOLUTE) 7.2 x10E3/uL (1.4-7.0); PLATELETS 206 x10E3/uL (150-450); RBC 4.99 x10E6/uL (4.14-5.80); RDW 11.9 % (11.6-15.4); WBC 10.2 x10E3/uL (3.4-10.8)
[2023-02-13] MEDS ORDERED: ESCI10 PO (22:48)
[2023-02-13] MEDS ORDERED: HYDCHL25 PO (22:49)
[2023-02-13] MEDS ORDERED: OMEP20ER PO (22:53)
[2023-02-13] MEDS ORDERED: VITAMIN D350 MC3 PO (22:54)
[2023-02-14 01:49] VITALS: BP 116/61
--- NOTE | 2023-02-14 05:18 | NUR ---
SUMMARY PT SITTING UP IN BED WATCHING TV, PT HAS BEEN PLEASANT AND COOPERATIVE WITH CARE T/O THE NIGHT, PT WORE THE BIPAP FOR ABOUT 4-5 HOURS LAST NIGHT, LINUS WELL, PT DENIES ANY PAIN OR NAUSEA, VSS, WILL CONT TO MONITOR
[2023-02-14 05:32] LABS: Bun/Creatinine Ratio 31.9 (12.0-20.0); Calcium, Blood 9.1 mg/dL (8.5-10.1); Creatinine, Blood 0.78 mg/dL (0.60-1.20); Magnesium, Blood 2.7 mg/dL (1.6-2.4); Potassium, Blood 4.2 mmol/L (3.5-5.5)
[2023-02-14 07:38] VITALS: BP 138/66
--- NOTE | 2023-02-14 10:25 | NUR ---
DISCUSSED PT HOME MEDICATIONS WITH HIM. PT FAMILY MEMBER BRINGING IN BIKTARVY FROM HOME FOR ADMINISTRATION.
--- NOTE | 2023-02-14 14:13 | NUR ---
0845- RN NOTIFIED DR. AREVALO THAT PT HAD A 7 BEAT RUN OF V-TACH. NO NEW ORDERS FROM
[2023-02-14 15:59] VITALS: BP 117/60
--- NOTE | 2023-02-14 18:12 | NUR ---
SHIFT SUMMARY PT A&OX4 AND CALLS APPROPRIATELY. HOME MEDICATIONS VERIFIED BY PHARMACY AND SECURED IN PT'S LOCKED DRAWER. VSS, PT BEING WEANED FROM SUPPLEMENTAL O2 AND IS CURRENTLY SATTING OVER 90% ON 2L. NO ACUTE EVENTS DURING MY SHIFT. PT LEFT IN A POSITION OF SAFETY WITH BED LOCKED AND IN LOWEST POSITION, NONSKID SOCKS IN PLACE, ROOM FREE OF DEBRIS, BED/CHAIR ALARM ENABLED, AND CALL LIGHT WITHIN REACH.
[2023-02-14 19:20] VITALS: BP 111/68
[2023-02-15 02:48] VITALS: BP 136/71
--- NOTE | 2023-02-15 05:02 | NUR ---
SUMMARY PT RESTING QUIETLY IN BED, WAKES EASILY, WAS UP IN THE CHAIR UNTIL AROUND MIDNIGHT LAST NIGHT, UP WITH MIN ASSIST, PT DOWN TO 1-2 L NC, DENIES SOB, PLEASANT AND COOPERATIVE WITH CARE, VSS, WILL CONT TO MONITOR
[2023-02-15 06:45] LABS: Albumin, Blood 2.6 g/dL (3.4-5.0); Anion Gap 5 mmol/L (6-16); Blood Urea Nitrogen 23 mg/dL (8-24); Bun/Creatinine Ratio 29.1 (12.0-20.0); CO2, Blood 29 mmol/L (21-32); Calcium, Blood 9.3 mg/dL (8.5-10.1); Chloride, Blood 104 mmol/L (98-108); Creatinine, Blood 0.79 mg/dL (0.60-1.20); Glomerular Filtration Rate 96 (60-); Glucose, Blood 182 mg/dL (70-99); Phosphorus, Blood 3.1 mg/dL (2.5-4.9); Potassium, Blood 4.3 mmol/L (3.5-5.5); Sodium, Blood 138 mmol/L (136-145)
[2023-02-15 07:35] VITALS: BP 133/67
[2023-02-15] MEDS ORDERED: GUAI600T33 PO (11:34)
[2023-02-15] MEDS ORDERED: LEVO750 PO (11:34)
[2023-02-15] MEDS ORDERED: ALBU2.5V5 INH (11:37)
[2023-02-15] MEDS ORDERED: VISBIOME 112.51 EACH PO (11:37)
[2023-02-15] MEDS ORDERED: PANT20 PO (11:37)
[2023-02-15] MEDS ORDERED: Prednisone10 MG PO (11:39)
--- NOTE | 2023-02-15 16:42 | NUR ---
1515 PATIENT DISCHARGED VIA W/C, SISTER FOREIGN DRIVING PATIENT AND SELF HOME, BOTH DENIED FURTHER QUESTIONS AND STATED UNDERSTANDING OF FOLLOW UP NEEDS
[2023-02-15 17:09] LABS: QUANTIFERON MITOGEN VALUE >10.00 IU/mL (.); QUANTIFERON NIL VALUE 0.18 IU/mL (.); QUANTIFERON TB1 AG VALUE 0.16 IU/mL (.); QUANTIFERON-TB GOLD PLUS Negative (Negative)
[2023-02-21 09:12] LABS: LOG10 HIV-1 RNA 2.663 (.)
== END 2023-02-15 16:00 | disposition home or self-care (01) | DRG 974 ==
LOC: ER 10:20 → MEDS 15:38 → ICUE 15:38 → MEDS 02-13 11:05 → ENPENDDIS 02-15 10:16 → MEDS 02-15 16:00
PROVIDERS: Emergency Medicine; Internal Medicine Critical Care Medicine; Student in an Organized Health Care Education/Training Program; ADMIT Internal Medicine
PROC: 5A09357 Assistance with Respiratory Ventilation, Less than 24 Consecutive Hours, Continuous Positive Airway Pressure (ICD-10-PCS; principal; 2023-02-12)
PROC: 4A033R1 Measurement of Arterial Saturation, Peripheral, Percutaneous Approach (ICD-10-PCS; 2023-02-12)
DX: J18.9 Pneumonia, unspecified organism (principal); J96.01 Acute respiratory failure with hypoxia; B20 Human immunodeficiency virus [HIV] disease; G93.41 Metabolic encephalopathy; J96.02 Acute respiratory failure with hypercapnia; J44.1 Chronic obstructive pulmonary disease with (acute) exacerbation; N39.0 Urinary tract infection, site not specified; E44.0 Moderate protein-calorie malnutrition; I47.20 Ventricular tachycardia, unspecified; J44.0 Chronic obstructive pulmonary disease with (acute) lower respiratory infection; J15.5 Pneumonia due to Escherichia coli; Z66 Do not resuscitate; B95.2 Enterococcus as the cause of diseases classified elsewhere; E03.8 Other specified hypothyroidism; F41.9 Anxiety disorder, unspecified; E78.5 Hyperlipidemia, unspecified; I73.9 Peripheral vascular disease, unspecified; I27.20 Pulmonary hypertension, unspecified; G89.29 Other chronic pain; G62.9 Polyneuropathy, unspecified; K21.9 Gastro-esophageal reflux disease without esophagitis; Z88.0 Allergy status to penicillin; Z79.899 Other long term (current) drug therapy; Z79.82 Long term (current) use of aspirin; Z79.51 Long term (current) use of inhaled steroids; Z90.49 Acquired absence of other specified parts of digestive tract; Z98.890 Other specified postprocedural states; Z79.02 Long term (current) use of antithrombotics/antiplatelets; Z87.891 Personal history of nicotine dependence; Z68.26 Body mass index [BMI] 26.0-26.9, adult
CPT/HCPCS: 36415; 36600; 51701; 51702; 71045; 71260; 80048; 80053; 80069; 81001; 82330; 82803; 83735; 83880; 84100; 84145; 84439; 84443; 84484; 85025; 85027; 86361; 86480; 87070; 87077; 87086; 87186; 87205; 87449; 93005; 93010; 94640; 94660; 94664; 94761; 94762; 96365-59; 96375-59; 97110; 97162; 97166; 97530; 97535; 99285-25; A9270; J0456; J0696; J1650; J2405; J2920; J7050; J7060; Q9967

== ENCOUNTER 2023-10-31 12:03 | Day surgery (SDC) | payer MEDICARE, OTHER ==
[~2023-10-31] VITALS: Ht 177.8 cm; Wt 81.0 kg
[~2023-10-31 12:03] MED LIST changes: +ALBU2.5V5 INH; +Balanced Salt Epinephrine Irrigation Solution 500 mL IR SCH; +ESCI10 PO; +HYDCHL25 PO; +Lidocaine HCl/Pf 1% 5 ML VIAL XX SCH; +Moxifloxacin HCL 0.5 MG/0.1 ML 0.4MLSYR RIGHTEYE SCH; +NS 500 ML IV ONE; +PANT20 PO; +PHENYLEPHRINE\\TROPICAMIDE\\TETRACAINE OPHTHALMIC DILATING SOLN RIGHTEYE PRN; +Povidone-Iodine 450 DROP/30 ML Solution RIGHTEYE SCH; +Prednisone10 MG PO; +Triamcinolone Inj Susp 40 MG / ML 1ML Vial INJ SCH; +Triamcinolone Inj Susp 40 MG / ML 1ML Vial ONE; +VISBIOME 112.51 EACH PO; +VITAMIN D350 MC3 PO
[2023-10-31] MEDS ORDERED: NS 500 ML IV ONE (12:29)
[2023-10-31] MEDS ORDERED: LOSARTAN POTASS25 M2 PO (12:35)
[2023-10-31] MEDS ORDERED: METOPROLOL SUCC25 MG PO (12:36)
[2023-10-31] MEDS ORDERED: FentaNYL Citrate 50 MCG/ML 2 ML Injection ONE (12:48)
[2023-10-31] MEDS ORDERED: Midazolam HCl 1MG / ML 2ML Vial ONE (12:49)
[2023-10-31] MEDS ORDERED: Tetracaine HCl 0.5% Opth Soln 15 ml RIGHTEYE ONE (13:20)
--- NOTE | 2023-10-31 13:23 | NUR ---
10/31/23 1323 Rosa Llamas CRNA SPOKE WITH PT REGARDING CURRENT POLST AND DNR STATUS. PT STATED THAT THE INFORMATION ON THE DOCUMENTS WAS CURRENTLY INCORRECT. DRN STATUS RECENDED WHILE AT [facility] PER POLICY. FISHER CLAM REQUESTED RN TO CONTACT PCP REGARDING UPDATING THE DOCUMENTS. THIS RN CONTACTED DR CASEY PCP AT [facility]. VOICEMAIL LEFT AT [facility] FOR PCP TO CONTACT PATIENT AND UPDATE FORMS.
[2023-10-31 13:42] VITALS: BP 97/56
== END 2023-10-31 13:53 | disposition home or self-care (01) ==
LOC: ORSCSDS 12:03
PROVIDERS: Ophthalmology
PROC: 08RJ3JZ Replacement of Right Lens with Synthetic Substitute, Percutaneous Approach (ICD-10-PCS; principal; 2023-10-31 13:30)
DX: H25.811 Combined forms of age-related cataract, right eye (principal); B20 Human immunodeficiency virus [HIV] disease; I10 Essential (primary) hypertension; E78.5 Hyperlipidemia, unspecified; J44.9 Chronic obstructive pulmonary disease, unspecified; I73.9 Peripheral vascular disease, unspecified; F41.9 Anxiety disorder, unspecified; K21.9 Gastro-esophageal reflux disease without esophagitis; Z87.891 Personal history of nicotine dependence; Z79.82 Long term (current) use of aspirin; Z79.02 Long term (current) use of antithrombotics/antiplatelets; Z79.899 Other long term (current) drug therapy
CPT/HCPCS: J2250; J3010; J3301; J7040; V2632

== ENCOUNTER 2023-11-14 11:45 | Day surgery (SDC) | payer MEDICARE, OTHER ==
[~2023-11-14] VITALS: Ht 177.8 cm; Wt 82.5 kg
[~2023-11-14 11:45] MED LIST changes: +LOSARTAN POTASS25 M2 PO; +METOPROLOL SUCC25 MG PO; +Moxifloxacin HCL 0.5 MG/0.1 ML 0.4MLSYR LEFTEYE SCH; -Moxifloxacin HCL 0.5 MG/0.1 ML 0.4MLSYR RIGHTEYE SCH; +PHENYLEPHRINE\\TROPICAMIDE\\TETRACAINE OPHTHALMIC DILATING SOLN LEFTEYE PRN; -PHENYLEPHRINE\\TROPICAMIDE\\TETRACAINE OPHTHALMIC DILATING SOLN RIGHTEYE PRN; +Povidone-Iodine 450 DROP/30 ML Solution LEFTEYE SCH; -Povidone-Iodine 450 DROP/30 ML Solution RIGHTEYE SCH; -Triamcinolone Inj Susp 40 MG / ML 1ML Vial ONE
[2023-11-14] MEDS ORDERED: NS 500 ML IV ONE (12:20)
[2023-11-14] MEDS ORDERED: FentaNYL Citrate 50 MCG/ML 2 ML Injection ONE (12:48)
[2023-11-14] MEDS ORDERED: Midazolam HCl 1MG / ML 2ML Vial ONE (12:48)
--- NOTE | 2023-11-14 12:52 | NUR ---
11/14/23 1252 Sadaf Major notified of diminished lungs throughout
[2023-11-14 13:45] VITALS: BP 114/55
== END 2023-11-14 13:40 | disposition home or self-care (01) ==
LOC: ORSCSDS 11:45
PROVIDERS: Ophthalmology
PROC: 08RK3JZ Replacement of Left Lens with Synthetic Substitute, Percutaneous Approach (ICD-10-PCS; principal; 2023-11-14 13:00)
DX: H25.812 Combined forms of age-related cataract, left eye (principal); Z96.1 Presence of intraocular lens; J44.9 Chronic obstructive pulmonary disease, unspecified; K21.9 Gastro-esophageal reflux disease without esophagitis; I10 Essential (primary) hypertension; E78.5 Hyperlipidemia, unspecified; F41.9 Anxiety disorder, unspecified; D69.6 Thrombocytopenia, unspecified; B20 Human immunodeficiency virus [HIV] disease; Z79.02 Long term (current) use of antithrombotics/antiplatelets; Z79.82 Long term (current) use of aspirin; Z79.899 Other long term (current) drug therapy; Z87.891 Personal history of nicotine dependence
CPT/HCPCS: J2250; J3010; J7040; V2632

== ENCOUNTER 2024-04-24 12:02 | Emergency (ER) | payer MEDICARE ==
[~2024-04-24] VITALS: Ht 175.3 cm; Wt 77.1 kg
[~2024-04-24 12:02] MED LIST changes: -Balanced Salt Epinephrine Irrigation Solution 500 mL IR SCH; -Lidocaine HCl/Pf 1% 5 ML VIAL XX SCH; -Moxifloxacin HCL 0.5 MG/0.1 ML 0.4MLSYR LEFTEYE SCH; -NS 500 ML IV ONE; -PHENYLEPHRINE\\TROPICAMIDE\\TETRACAINE OPHTHALMIC DILATING SOLN LEFTEYE PRN; -Povidone-Iodine 450 DROP/30 ML Solution LEFTEYE SCH; -Triamcinolone Inj Susp 40 MG / ML 1ML Vial INJ SCH
[2024-04-24 12:58] LABS: BASOPHILS ABSOLUTE AUTO 0.02 K/mm3 (0.00-0.23); BASOPHILS PERCENT AUTO 0 % (0-2); EOSINOPHILS ABSOLUTE AUTO 0.12 K/mm3 (0.00-0.68); EOSINOPHILS PERCENT AUTO 2 % (0-6); Hematocrit 41.4 % (37.0-53.0); Hemoglobin 13.9 g/dL (13.5-17.5); IMMATURE GRAN ABSOLUTE AUTO 0.03 K/mm3 (0.00-0.10); IMMATURE GRAN PERCENT AUTO 0 % (0-1); LYMPHOCYTES ABSOLUTE AUTO 1.15 K/mm3 (0.84-5.20); LYMPHOCYTES PERCENT AUTO 14 % (21-46); MONOCYTES ABSOLUTE AUTO 0.94 K/mm3 (0.16-1.47); MONOCYTES PERCENT AUTO 12 % (4-13); Mean Corpuscular HGB 32.4 pg (26.0-34.0); Mean Corpuscular HGB Conc 33.6 g/dL (31.5-36.5); Mean Corpuscular Volume 97 fL (80-100); Mean Platelet Volume 12.3 fL (9.1-12.4); NEUTROPHILS ABSOLUTE AUTO 5.85 K/mm3 (1.96-9.15); NEUTROPHILS PERCENT AUTO 72 % (41-73); Platelet Count 199 K/mm3 (150-400); RDW Coefficient Variation 13.4 % (11.7-14.2); RDW Standard Deviation 47.8 fL (35.1-46.3); Red Blood Cell Count 4.29 M/mm3 (4.30-5.90); White Blood Cell Count 8.11 K/mm3 (4.00-11.30)
[2024-04-24 14:00] LABS: Albumin, Blood 2.7 g/dL (3.4-5.0); Albumin/Globulin Ratio 0.6 (0.8-1.8); Bilirubin, Total 0.8 mg/dL (0.1-1.0); Calcium, Blood 9.8 mg/dL (8.5-10.1); Globulin, Blood 4.5 g/dL (2.2-4.0); Total Protein, Blood 7.2 g/dL (6.4-8.2)
[2024-04-24] MEDS ORDERED: Albuterol 2.5 MG/3 ML VIAL INH SCH (14:45)
[2024-04-24] MEDS ORDERED: MethylPREDNISolone Sod Succ 125 MG Vial IV ONE (14:45)
[2024-04-24] MEDS ORDERED: Ipratropium Bromide INH 0.02% 0.5 mg/2.5ML Vial INH SCH (14:45)
[2024-04-24] MEDS ORDERED: ESCITALOPRAM OXA5 MG PO (14:55)
[2024-04-24] MEDS ORDERED: Mucus Relief400 MG PO (14:59)
[2024-04-24 15:46] LABS: CORONAVIRUS COVID-19 AG Negative (NEGATIVE); INFLUENZA A AG Negative (NEGATIVE); INFLUENZA B AG Negative (NEGATIVE)
[2024-04-24] MEDS ORDERED: PRED20 PO (16:42)
[2024-04-24 17:15] VITALS: BP 136/66
== END 2024-04-24 17:39 | disposition home or self-care (01) ==
LOC: ER 12:02
PROVIDERS: Emergency Medicine; Student in an Organized Health Care Education/Training Program
DX: J44.1 Chronic obstructive pulmonary disease with (acute) exacerbation (principal); S02.2XXA Fracture of nasal bones, initial encounter for closed fracture; W19.XXXA Unspecified fall, initial encounter; F17.210 Nicotine dependence, cigarettes, uncomplicated; Z88.0 Allergy status to penicillin; Z79.82 Long term (current) use of aspirin; Z79.02 Long term (current) use of antithrombotics/antiplatelets; Z79.899 Other long term (current) drug therapy
CPT/HCPCS: 70450; 70486; 71046; 80053; 84484; 85025; 87428-QW; 93005; 93010; 94644; 94664; 96374; 99285-25; J2919

== ENCOUNTER 2024-05-27 12:16 | Emergency (ER) | payer MEDICARE ==
[~2024-05-27] VITALS: Ht 177.8 cm; Wt 73.0 kg
[~2024-05-27 12:16] MED LIST changes: +ESCITALOPRAM OXA5 MG PO; +LIDO700A20 TOP; +Mucus Relief400 MG PO; +Voltaren100 GM TOP
[2024-05-27 16:10] VITALS: BP 131/53
[2024-05-27] MEDS ORDERED: Lidocaine 4% 1 Patch TOP ONE (16:25)
[2024-05-27] MEDS ORDERED: Ketorolac Tromethamine 15mg Vial IM ONE (16:25)
[2024-05-27] MEDS ORDERED: ASPERFLEX1 EACH TOP (16:29)
== END 2024-05-27 16:38 | disposition home or self-care (01) ==
LOC: ER 12:16
DX: M54.50 Low back pain, unspecified (principal); I45.10 Unspecified right bundle-branch block; I10 Essential (primary) hypertension; E78.00 Pure hypercholesterolemia, unspecified; F17.210 Nicotine dependence, cigarettes, uncomplicated; Z88.0 Allergy status to penicillin; Z79.891 Long term (current) use of opiate analgesic; Z79.899 Other long term (current) drug therapy
CPT/HCPCS: 93005; 93010; 99283-25; A9270; J1885

== ENCOUNTER → 2024-06-19 | Outpatient (CLI) | payer MEDICARE ==
[~2024-06-19] MED LIST changes: +ASPERFLEX1 EACH TOP
[2024-06-19 19:52] LABS: Albumin, Blood 2.5 g/dL (3.4-5.0); Albumin/Globulin Ratio 0.7 (0.8-1.8); Bilirubin, Direct 0.1 mg/dL (0.0-0.3); Bilirubin, Indirect 0.4 mg/dL (0.1-0.7); Bilirubin, Total 0.5 mg/dL (0.1-1.0); Bun/Creatinine Ratio 10.4 (12.0-20.0); C-REACTIVE PROTEIN, EXT RANGE 1.69 mg/dL (0.000-0.300); Creatinine, Blood 0.96 mg/dL (0.60-1.20); Globulin, Blood 3.7 g/dL (2.2-4.0); Phosphorus, Blood 2.4 mg/dL (2.5-4.9); Potassium, Blood 3.5 mmol/L (3.5-5.5); Total Protein, Blood 6.2 g/dL (6.4-8.2)
== END | disposition home or self-care (01) ==
LOC: LAB 17:23 → LAB SHORT 17:23
PROVIDERS: Family Medicine
DX: N20.0 Calculus of kidney (principal); R79.82 Elevated C-reactive protein (CRP)
CPT/HCPCS: 80053; 82248; 84100; 86140

== ENCOUNTER → 2024-07-07 | Outpatient (CLI) | payer MEDICARE ==
[2024-07-07 17:05] LABS: BASOPHILS ABSOLUTE AUTO 0.04 K/mm3 (0.00-0.23); BASOPHILS PERCENT AUTO 1 % (0-2); EOSINOPHILS ABSOLUTE AUTO 0.09 K/mm3 (0.00-0.68); EOSINOPHILS PERCENT AUTO 1 % (0-6); IMMATURE GRAN ABSOLUTE AUTO 0.01 K/mm3 (0.00-0.10); IMMATURE GRAN PERCENT AUTO 0 % (0-1); LYMPHOCYTES ABSOLUTE AUTO 1.93 K/mm3 (0.84-5.20); LYMPHOCYTES PERCENT AUTO 29 % (21-46); MONOCYTES ABSOLUTE AUTO 0.68 K/mm3 (0.16-1.47); MONOCYTES PERCENT AUTO 10 % (4-13); Mean Corpuscular HGB 31.6 pg (26.0-34.0); Mean Corpuscular HGB Conc 31.4 g/dL (31.5-36.5); Mean Corpuscular Volume 101 fL (80-100); Mean Platelet Volume 10.5 fL (9.1-12.4); NEUTROPHILS ABSOLUTE AUTO 3.88 K/mm3 (1.96-9.15); NEUTROPHILS PERCENT AUTO 58 % (41-73); Platelet Count 238 K/mm3 (150-400); RDW Coefficient Variation 15.7 % (11.7-14.2); RDW Standard Deviation 58.6 fL (35.1-46.3); Red Blood Cell Count 3.48 M/mm3 (4.30-5.90); White Blood Cell Count 6.63 K/mm3 (4.00-11.30)
[2024-07-07 17:16] LABS: Albumin, Blood 2.8 g/dL (3.4-5.0); Albumin/Globulin Ratio 0.7 (0.8-1.8); Bilirubin, Total 0.4 mg/dL (0.1-1.0); Bun/Creatinine Ratio 9.3 (12.0-20.0); Calcium, Blood 8.9 mg/dL (8.5-10.1); Creatinine, Blood 1.18 mg/dL (0.60-1.20); Globulin, Blood 4.3 g/dL (2.2-4.0); Potassium, Blood 3.1 mmol/L (3.5-5.5); Total Protein, Blood 7.1 g/dL (6.4-8.2)
== END ==
LOC: LAB SHORT 16:59 → LAB 16:59
PROVIDERS: Physician Assistant Medical
DX: R60.0 Localized edema (principal)
CPT/HCPCS: 80053; 83880; 85025; 85379

== ENCOUNTER → 2024-07-13 | Outpatient (CLI) | payer MEDICARE ==
[2024-07-13 16:28] LABS: BASOPHILS ABSOLUTE AUTO 0.03 K/mm3 (0.00-0.23); BASOPHILS PERCENT AUTO 1 % (0-2); EOSINOPHILS ABSOLUTE AUTO 0.11 K/mm3 (0.00-0.68); EOSINOPHILS PERCENT AUTO 2 % (0-6); Hematocrit 33.5 % (37.0-53.0); Hemoglobin 10.3 g/dL (13.5-17.5); IMMATURE GRAN ABSOLUTE AUTO 0.01 K/mm3 (0.00-0.10); IMMATURE GRAN PERCENT AUTO 0 % (0-1); LYMPHOCYTES ABSOLUTE AUTO 1.36 K/mm3 (0.84-5.20); LYMPHOCYTES PERCENT AUTO 22 % (21-46); MONOCYTES ABSOLUTE AUTO 0.74 K/mm3 (0.16-1.47); MONOCYTES PERCENT AUTO 12 % (4-13); Mean Corpuscular HGB 31.6 pg (26.0-34.0); Mean Corpuscular HGB Conc 30.7 g/dL (31.5-36.5); Mean Corpuscular Volume 103 fL (80-100); Mean Platelet Volume 11.1 fL (9.1-12.4); NEUTROPHILS PERCENT AUTO 63 % (41-73); Platelet Count 211 K/mm3 (150-400); RDW Coefficient Variation 15.8 % (11.7-14.2); RDW Standard Deviation 59.5 fL (35.1-46.3); RETICULOCYTE COUNT PERCENT 2.56 % (0.50-2.50); Red Blood Cell Count 3.26 M/mm3 (4.30-5.90); White Blood Cell Count 6.15 K/mm3 (4.00-11.30)
[2024-07-13 17:17] LABS: Albumin, Blood 2.6 g/dL (3.4-5.0); Albumin/Globulin Ratio 0.6 (0.8-1.8); Bilirubin, Total 0.5 mg/dL (0.1-1.0); Bun/Creatinine Ratio 10.1 (12.0-20.0); Calcium, Blood 8.9 mg/dL (8.5-10.1); Creatinine, Blood 1.19 mg/dL (0.60-1.20); Percent Saturation 22.8 % (20.0-50.0); Potassium, Blood 2.8 mmol/L (3.5-5.5); Thyroid Stimulating Hormone 1.09 uIU/mL (0.360-4.800); Total Protein, Blood 6.6 g/dL (6.4-8.2)
== END ==
LOC: LAB 14:23 → LAB SHORT 14:23
PROVIDERS: Family Medicine
DX: D64.9 Anemia, unspecified (principal); E87.6 Hypokalemia; R60.0 Localized edema; R68.89 Other general symptoms and signs; Z79.899 Other long term (current) drug therapy
CPT/HCPCS: 80053; 82607; 82728; 82746; 83540; 83550; 83735; 84443; 85025; 85045

== ENCOUNTER → 2024-08-11 | Outpatient (CLI) | payer MEDICARE, OTHER ==
[2024-08-11 16:30] LABS: Hematocrit 38.1 % (37.0-53.0); Hemoglobin 11.7 g/dL (13.5-17.5); Mean Corpuscular HGB 32.1 pg (26.0-34.0); Mean Corpuscular HGB Conc 30.7 g/dL (31.5-36.5); Mean Corpuscular Volume 104 fL (80-100); Mean Platelet Volume 11.6 fL (9.1-12.4); Platelet Count 194 K/mm3 (150-400); RDW Coefficient Variation 15.1 % (11.7-14.2); RDW Standard Deviation 58.1 fL (35.1-46.3); Red Blood Cell Count 3.65 M/mm3 (4.30-5.90); White Blood Cell Count 7.54 K/mm3 (4.00-11.30)
[2024-08-11 17:05] LABS: Bun/Creatinine Ratio 16.9 (12.0-20.0); Calcium, Blood 9.6 mg/dL (8.5-10.1); Creatinine, Blood 1.3 mg/dL (0.60-1.20); Potassium, Blood 4.2 mmol/L (3.5-5.5)
== END ==
LOC: LAB 10:55 → LAB SHORT 10:55
PROVIDERS: Family Medicine
DX: D53.9 Nutritional anemia, unspecified (principal); E87.6 Hypokalemia
CPT/HCPCS: 80048; 83615; 85027; 85060

== ENCOUNTER 2024-09-07 11:55 | Emergency (ER) | payer MEDICARE, OTHER ==
[~2024-09-07] VITALS: Ht 175.3 cm; Wt 65.2 kg
[~2024-09-07 11:55] MED LIST changes: +ASPI81CH PO; +GABA400 PO; +LIDOCORE1 EACH TOP; +Prevacid Soluta30 MG
[2024-09-07 12:06] VITALS: BP 141/63
[2024-09-07] MEDS ORDERED: Prevacid Soluta30 MG PT (14:59)
== END 2024-09-07 15:04 | disposition home or self-care (01) ==
LOC: ER 11:55
DX: K94.23 Gastrostomy malfunction (principal); E11.40 Type 2 diabetes mellitus with diabetic neuropathy, unspecified; F17.210 Nicotine dependence, cigarettes, uncomplicated
CPT/HCPCS: 99282

== ENCOUNTER 2024-11-03 13:11 | Inpatient (IN) | payer MEDICARE ==
[~2024-11-03] VITALS: Ht 165.1 cm; Wt 57.1 kg
[~2024-11-03 13:11] MED LIST changes: -Prevacid Soluta30 MG; +Prevacid Soluta30 MG PO; +Prevacid Soluta30 MG PT
[2024-11-03 13:48] LABS: BASOPHILS ABSOLUTE AUTO 0.06 K/mm3 (0.00-0.23); BASOPHILS PERCENT AUTO 1 % (0-2); EOSINOPHILS ABSOLUTE AUTO 0.36 K/mm3 (0.00-0.68); EOSINOPHILS PERCENT AUTO 3 % (0-6); Hematocrit 27.4 % (37.0-53.0); Hemoglobin 8.9 g/dL (13.5-17.5); IMMATURE GRAN ABSOLUTE AUTO 0.04 K/mm3 (0.00-0.10); IMMATURE GRAN PERCENT AUTO 0 % (0-1); LYMPHOCYTES ABSOLUTE AUTO 1.75 K/mm3 (0.84-5.20); LYMPHOCYTES PERCENT AUTO 16 % (21-46); MONOCYTES ABSOLUTE AUTO 1.04 K/mm3 (0.16-1.47); MONOCYTES PERCENT AUTO 9 % (4-13); Mean Corpuscular HGB Conc 32.5 g/dL (31.5-36.5); Mean Corpuscular Volume 100 fL (80-100); NEUTROPHILS ABSOLUTE AUTO 8.02 K/mm3 (1.96-9.15); NEUTROPHILS PERCENT AUTO 71 % (41-73); NRBC ABSOLUTE 0.00 K/mm3 (0.00-0.02); NRBC Auto 0.0 /100 WBC (0.0-0.2); Platelet Count 255 K/mm3 (150-400); RDW Coefficient Variation 13.8 % (11.7-14.2); RDW Standard Deviation 50.2 fL (35.1-46.3)
[2024-11-03 14:21] LABS: Alanine Aminotransfer (ALT/SGP 16.0 U/L (12-78); Albumin, Blood 2.4 g/dL (3.4-5.0); Albumin/Globulin Ratio 0.5 (0.8-1.8); Anion Gap 10.0 mmol/L (3-11); Aspartate Aminotrans (AST/SGOT 18.0 U/L (12-37); Bilirubin, Total 0.4 mg/dL (0.1-1.0); Blood Urea Nitrogen 51.0 mg/dL (8-24); CO2, Blood 26.0 mmol/L (21-32); Calcium, Blood 9.4 mg/dL (8.5-10.1); Chloride, Blood 103.0 mmol/L (98-108); Creatinine, Blood 2.43 mg/dL (0.60-1.20); Globulin, Blood 4.4 g/dL (2.2-4.0); Glucose, Blood 99.0 mg/dL (70-99); Potassium, Blood 4.5 mmol/L (3.5-5.5); Sodium, Blood 134.0 mmol/L (136-145); Total Protein, Blood 6.8 g/dL (6.4-8.2)
[2024-11-03] MEDS ORDERED: NS 1,000 ML IV SCH (14:45)
[2024-11-03 15:47] LABS: Source, Urine Clean Catch
[2024-11-03 16:20] LABS: Bilirubin, Urine Neg (Neg); Color, Urine Amber (P-Yellow); Glucose Qualitative, Urine Neg (Neg); Ketones, Urine Neg (Neg); Leukocyte Esterase, Urine 3+ (Neg); Protein, Urine 3+ (Neg); Specific Gravity, Urine 1.010 (1.003-1.022); Urobilinogen, Urine NORM (Normal)
[2024-11-03 16:45] LABS: Red Blood Cells, Urine 25-50 /hpf (0-2); White Blood Cells, Urine TNTC /hpf (0-5)
[2024-11-03] MEDS ORDERED: Albuterol 2.5 MG/3 ML VIAL INH PRN (17:35)
[2024-11-03] MEDS ORDERED: CefTRIAXone Sodium 1,000 MG in NS 100 ML IV SCH (18:00)
[2024-11-03 19:18] VITALS: BP 116/47
[2024-11-03] MEDS ORDERED: NS 250 ML IV PRN (19:55)
[2024-11-03 23:41] VITALS: BP 115/50
[2024-11-04 03:26] VITALS: BP 111/53
--- NOTE | 2024-11-04 04:54 | NUR ---
SHIFT SUMMARY PATIENT A/O X3, PLEASANT AND COOPERATIVE THROUGHOUT SHIFT. TELE IN PLACE WITH REPORT OF SINUS YOLANDA IN THE 50-60'S. PT CONT/INC AND IS VOIDING TEA COLORED URINE. ATTENDS CHANGED PRN AND REPOSITIONED Q2H. ABRASIONS AND BRUISING TO DONNA ELBOWS. PT STATES THAT HE HAS HAD MUTIPLE FALLS THIS WEEK, AND HAS HAD TROUBLE REMEMBERING "NORMAL DAY THINGS." PT REMAINED NPO THROUGHOUT THE SHIFT WITH LR RUNNING AT 150 ML/HR. NO PAIN REPORTED THROUGHOUT SHIFT. VITAL SIGNS REMAINED STABLE. SCD'S AND CONT PULS OX IN PLACE. WEAK NONPRODUCTIVE COUGH AND COARSE LUNG SOUNDS, OXYGEN SATURATION REMAINED ABOVE 90%. NO ACUTE CHANGES THROUGHOUT SHIFT, CALL LIGHT IN REACH, BED IN LOWEST POSITION. WILL REPORT TO ONCOMING RN.
[2024-11-04 06:42] LABS: BASOPHILS ABSOLUTE AUTO 0.08 K/mm3 (0.00-0.23); BASOPHILS PERCENT AUTO 1 % (0-2); EOSINOPHILS ABSOLUTE AUTO 0.16 K/mm3 (0.00-0.68); EOSINOPHILS PERCENT AUTO 1 % (0-6); Hematocrit 31.7 % (37.0-53.0); Hemoglobin 10.1 g/dL (13.5-17.5); IMMATURE GRAN ABSOLUTE AUTO 0.05 K/mm3 (0.00-0.10); IMMATURE GRAN PERCENT AUTO 0 % (0-1); LYMPHOCYTES ABSOLUTE AUTO 1.23 K/mm3 (0.84-5.20); LYMPHOCYTES PERCENT AUTO 10 % (21-46); MONOCYTES ABSOLUTE AUTO 0.90 K/mm3 (0.16-1.47); MONOCYTES PERCENT AUTO 7 % (4-13); Mean Corpuscular HGB Conc 31.9 g/dL (31.5-36.5); Mean Corpuscular Volume 99 fL (80-100); NEUTROPHILS ABSOLUTE AUTO 9.72 K/mm3 (1.96-9.15); NEUTROPHILS PERCENT AUTO 80 % (41-73); NRBC ABSOLUTE 0.00 K/mm3 (0.00-0.02); NRBC Auto 0.0 /100 WBC (0.0-0.2); Platelet Count 286 K/mm3 (150-400); RDW Coefficient Variation 13.6 % (11.7-14.2); RDW Standard Deviation 49.4 fL (35.1-46.3)
[2024-11-04 07:16] LABS: Alanine Aminotransfer (ALT/SGP 14.0 U/L (12-78); Albumin, Blood 2.3 g/dL (3.4-5.0); Albumin/Globulin Ratio 0.5 (0.8-1.8); Anion Gap 9.0 mmol/L (3-11); Aspartate Aminotrans (AST/SGOT 9.0 U/L (12-37); Bilirubin, Total 0.6 mg/dL (0.1-1.0); Blood Urea Nitrogen 45.0 mg/dL (8-24); CO2, Blood 24.0 mmol/L (21-32); Calcium, Blood 9.3 mg/dL (8.5-10.1); Chloride, Blood 112.0 mmol/L (98-108); Creatinine, Blood 2.33 mg/dL (0.60-1.20); Globulin, Blood 4.7 g/dL (2.2-4.0); Glucose, Blood 103.0 mg/dL (70-99); Potassium, Blood 4.3 mmol/L (3.5-5.5); Sodium, Blood 141.0 mmol/L (136-145); Total Protein, Blood 7.0 g/dL (6.4-8.2)
[2024-11-04 07:47] VITALS: BP 109/47
[2024-11-04] MEDS ORDERED: Enoxaparin 30 MG/0.3 ML SYR SC SCH (09:00)
[2024-11-04] MEDS ORDERED: Bisoprolol Fumar5 MG PO (11:33)
[2024-11-04] MEDS ORDERED: MIDO5 PT (11:35)
[2024-11-04] MEDS ORDERED: FUROSEMIDE20 MG PO (11:36)
[2024-11-04] MEDS ORDERED: PRAVASTATIN SOD40 MG PO (11:37)
[2024-11-04] MEDS ORDERED: POTA10T PO (11:45)
[2024-11-04] MEDS ORDERED: FERSU300 PO (11:45)
[2024-11-04 12:02] VITALS: BP 109/54
[2024-11-04 12:51] LABS: Acinetobacter baumannii DNA Not Detected copy/mL (NOT DETECT); Enterobacter cloacae DNA Not Detected copy/mL (NOT DETECT); Escherichia coli DNA Not Detected copy/mL (NOT DETECT); Haemophilus influenzae DNA Not Detected copy/mL (NOT DETECT); Klebsiella aerogenes DNA Not Detected copy/mL (NOT DETECT); Klebsiella oxytoca DNA Not Detected copy/mL (NOT DETECT); Klebsiella pneumoniae DNA Not Detected copy/mL (NOT DETECT); Moraxella catarrhalis DNA Not Detected copy/mL (NOT DETECT); Proteus sp DNA Not Detected copy/mL (NOT DETECT); Pseudomonas aeruginosa DNA Detected Bin 10^5 copy/mL (NOT DETECT); Serratia marcescens DNA Not Detected copy/mL (NOT DETECT); Staphylococcus aureus DNA Not Detected copy/mL (NOT DETECT); Streptococcus agalactiae DNA Not Detected copy/mL (NOT DETECT); Streptococcus pneumoniae DNA Not Detected copy/mL (NOT DETECT); Streptococcus pyogenes DNA Not Detected copy/mL (NOT DETECT)
[2024-11-04 12:52] LABS: Chlamydia pneumonia Not Detected (NOT DETECT); Human Coronavirus RNA Not Detected (NOT DETECT); Human Metapneumovirus RNA Not Detected (NOT DETECT); Influenza virus A RNA Not Detected (NOT DETECT); Influenza virus B RNA Not Detected (NOT DETECT); Respiratory syncytial Vir RNA Not Detected (NOT DETECT); Rhinovirus+Enterovirus RNA Not Detected (NOT DETECT)
--- NOTE | 2024-11-04 15:11 | NUR ---
CALLED DR. KRUGER AND NOTIFIED HER OF THIS PATIENT HAVING A 4 AND 7 BEAT RUN OF V-TACH. DOCTOR SASKIA CALLED BACK STATING SHE WILL PUT IN A ORDER FOR METOPROLOL.
[2024-11-04 16:02] LABS: Magnesium, Blood 2.4 mg/dL (1.6-2.4)
[2024-11-04 16:03] LABS: Phosphorus, Blood 3.9 mg/dL (2.5-4.9)
[2024-11-04 16:06] VITALS: BP 115/47
[2024-11-04] MEDS ORDERED: Protein Supplement 30 ML UD PT SCH (17:00)
[2024-11-04] MEDS ORDERED: GLYCERIN 30 ML LIQUID MM PRN (17:50)
--- NOTE | 2024-11-04 18:36 | NUR ---
SHIFT SUMMARY: PATIENT HAS IMAGING DONE EARLIER THIS DAY. CT ORDERED PER RESIDENT AND AWAITING RESULTS AT THIS TIME. PATIENT REMAINS NPO D/T S/S OF ASPIRATION. PALLIATIVE CARE CONSULT IN PLACE. TUBE FEEDING STARTED TODAY AROUND 1400. TUBE FEEDING RATE OF 355ML/HR AND FLUSH OF 100ML BEFORE AND POST EACH FEEDING. PATIENT MAD 3 EPISODES OF V-TACH THIS SHIFT. SEE NOTES FOR MORE DETAILS. DR. KRUGER NOTIFIED ALONGSIDE RESIDENTS. PATIENT REMAINS A+O X3-4. PLAN OF CARE ONGOING AT THIS TIME. WILL CONTINUE TO MONITOR.
[2024-11-04 19:37] VITALS: BP 111/55
[2024-11-04 23:58] VITALS: BP 119/46
[2024-11-05 04:38] VITALS: BP 116/58
--- NOTE | 2024-11-05 05:10 | NUR ---
SHIFT SUMMARY A/0X3-4. REMAINED BEDREST THROUGHOUT THE SHIFT. VITAL SIGNS STABLE. URINATING WELL, PINKISH CLOUDY URINE. TUBE FEED CONTINUES BOLUS FEEDS OF 355 Q6H W/ 100ML FLUSH PRIOR AND FOLLOWING FEEDS. PT TOLERATING WELL. LR CONTINUED AT 150ML/HR. TELE IN PLACE, SINUS YOLANDA THROUGHOUT SHIFT WITH ONE 8 SECOND RUN OF VTACH, NO REPORTS OF SOB CHEST PAIN OR PRESSURE. NO PAIN REPORTED. NO ACUTE CHANGES THROUGHOUT THE SHIFT. PT UTILIZING CALL LIGHT APPROPIRATELY. BED IN LOWEST POSITION WITH BED ALARM ON FOR STAFTEY, WILL CONTINUE TO MONITOR AND REPORT TO ONCOMING RN.
[2024-11-05 06:06] LABS: BASOPHILS ABSOLUTE AUTO 0.04 K/mm3 (0.00-0.23); BASOPHILS PERCENT AUTO 0 % (0-2); EOSINOPHILS ABSOLUTE AUTO 0.19 K/mm3 (0.00-0.68); EOSINOPHILS PERCENT AUTO 2 % (0-6); Hematocrit 29.5 % (37.0-53.0); Hemoglobin 9.2 g/dL (13.5-17.5); IMMATURE GRAN ABSOLUTE AUTO 0.03 K/mm3 (0.00-0.10); IMMATURE GRAN PERCENT AUTO 0 % (0-1); LYMPHOCYTES ABSOLUTE AUTO 0.86 K/mm3 (0.84-5.20); LYMPHOCYTES PERCENT AUTO 7 % (21-46); MONOCYTES ABSOLUTE AUTO 0.82 K/mm3 (0.16-1.47); MONOCYTES PERCENT AUTO 7 % (4-13); Mean Corpuscular HGB Conc 31.2 g/dL (31.5-36.5); Mean Corpuscular Volume 100 fL (80-100); NEUTROPHILS ABSOLUTE AUTO 10.14 K/mm3 (1.96-9.15); NEUTROPHILS PERCENT AUTO 84 % (41-73); NRBC ABSOLUTE 0.00 K/mm3 (0.00-0.02); NRBC Auto 0.0 /100 WBC (0.0-0.2); Platelet Count 280 K/mm3 (150-400); RDW Coefficient Variation 13.9 % (11.7-14.2); RDW Standard Deviation 51.1 fL (35.1-46.3)
[2024-11-05 06:23] LABS: Anion Gap 8.0 mmol/L (3-11); Blood Urea Nitrogen 41.0 mg/dL (8-24); CO2, Blood 27.0 mmol/L (21-32); Calcium, Blood 9.0 mg/dL (8.5-10.1); Chloride, Blood 111.0 mmol/L (98-108); Creatinine, Blood 1.9 mg/dL (0.60-1.20); Glucose, Blood 195.0 mg/dL (70-99); Magnesium, Blood 2.3 mg/dL (1.6-2.4); Phosphorus, Blood 2.4 mg/dL (2.5-4.9); Potassium, Blood 3.9 mmol/L (3.5-5.5); Sodium, Blood 142.0 mmol/L (136-145)
[2024-11-05 07:10] VITALS: BP 114/48
[2024-11-05] MEDS ORDERED: Potassium Phosphate Dibasic 15 MM in Dextrose 5% 250 ML IV STA (07:21)
[2024-11-05 12:07] VITALS: BP 106/51
--- NOTE | 2024-11-05 14:40 | NUR ---
Received call from lawn care technician that pt had a 9 beat run of V-tach. Assessed pt for CP, SOB, or other signs of distress. Pt was sleeping and awoke easily, denied any complaints. Call made to Dr. Salgado at 1432 with above information; no new orders received.
[2024-11-05 15:42] VITALS: BP 121/51
--- NOTE | 2024-11-05 17:54 | NUR ---
End of shift summary: Pt is alert and oriented x3; pleasant and cooperative with care. Pt with Peg tube feedings q6 hours; tolerating very well. Pt with all medications administered via Peg tube per EMAR. Pt denies SOB, CP, N/V/D, pain this shift. Pt with telemetry in place and had 9 beat run of V-tach this afternoon, doctor notified; has had NS bradycardia. Pt has been up to chair x2 today with standby assist. Pt now able to take sips of water via spoon and has been tolerating well. Pt utilizing call light appropriately; call light within reach and bed in lowest position. Will continue to monitor until next shift nurse arrives and report is given.
[2024-11-05] MEDS ORDERED: [UNRECOGNIZED DRUG - OTHER] PO SCH (21:00)
[2024-11-05 21:02] VITALS: BP 129/58
[2024-11-06] VITALS (10 sets, daily range): BP systolic 105–152; BP diastolic 60–69
[2024-11-06 05:36] LABS: BASOPHILS ABSOLUTE AUTO 0.04 K/mm3 (0.00-0.23); BASOPHILS PERCENT AUTO 0 % (0-2); EOSINOPHILS ABSOLUTE AUTO 0.28 K/mm3 (0.00-0.68); EOSINOPHILS PERCENT AUTO 3 % (0-6); Hematocrit 28.2 % (37.0-53.0); Hemoglobin 8.8 g/dL (13.5-17.5); IMMATURE GRAN ABSOLUTE AUTO 0.04 K/mm3 (0.00-0.10); IMMATURE GRAN PERCENT AUTO 0 % (0-1); LYMPHOCYTES ABSOLUTE AUTO 1.07 K/mm3 (0.84-5.20); LYMPHOCYTES PERCENT AUTO 12 % (21-46); MONOCYTES ABSOLUTE AUTO 0.82 K/mm3 (0.16-1.47); MONOCYTES PERCENT AUTO 9 % (4-13); Mean Corpuscular HGB Conc 31.2 g/dL (31.5-36.5); Mean Corpuscular Volume 100 fL (80-100); NEUTROPHILS ABSOLUTE AUTO 6.90 K/mm3 (1.96-9.15); NEUTROPHILS PERCENT AUTO 75 % (41-73); NRBC ABSOLUTE 0.00 K/mm3 (0.00-0.02); NRBC Auto 0.0 /100 WBC (0.0-0.2); Platelet Count 238 K/mm3 (150-400); RDW Coefficient Variation 14.0 % (11.7-14.2); RDW Standard Deviation 51.1 fL (35.1-46.3)
--- NOTE | 2024-11-06 06:10 | NUR ---
Shift Summary Post void bladder scan this AM showed 247 mL which is less than 350 required for straight cath. Pt on tele, one 7 beat run of VTACH, asymptomatic. Pt is AOx3, calls appropriatly. I held night time midodrine as systolic BP was > 130. IV pump was not cleared since 11/02 and had 9163 mL on it. I estimated 3400 input mL for the last 24 hours based on LR running at 150 ml/hr with some pauses in infusion. Pt had no c/o pain or nausea. He did have wheezy breathing this AM and I called RT for a breathing treatment. Pt on cont. O2 monitor, no desaturation events.
[2024-11-06 06:16] LABS: Anion Gap 8.0 mmol/L (3-11); Blood Urea Nitrogen 29.0 mg/dL (8-24); CO2, Blood 27.0 mmol/L (21-32); Calcium, Blood 8.6 mg/dL (8.5-10.1); Chloride, Blood 110.0 mmol/L (98-108); Creatinine, Blood 1.49 mg/dL (0.60-1.20); Glucose, Blood 161.0 mg/dL (70-99); Potassium, Blood 4.0 mmol/L (3.5-5.5); Sodium, Blood 141.0 mmol/L (136-145)
[2024-11-06] MEDS ORDERED: Enoxaparin 40 MG/0.4 ML SYR SC SCH (09:00)
[2024-11-06 10:47] LABS: % CD4 24 % (35-68); ABSOLUTE CD4 452 cells/uL (490-1600)
--- NOTE | 2024-11-06 13:46 | NUR ---
YARN CLEANER NOTIFICATION NOTE: RECEIVED A CALL FROM [facility] [facility]OOK[facility] CASING AND DRYING SUPERVISORISABELA ROWE. PER ISABELA PATIENT HAD ACCELERATED IDIOVENTRICULAR FOR 9 SECONDS LONG AND BACK TO NSR HR IN THE 70'S BPM. PATIENT LAYING IN BED RESTING, DENIES CP/PRESSURE, SOB, N/V AND DIZZINESS. NOTIFDIED DR. HERNANDEZ REGARDING THIS CONCERN, NO NEW RECEIVE ORDERS AT THIS TIME.
--- NOTE | 2024-11-06 17:05 | NUR ---
SHIFT SUMMARY: PATIENT HAD OT EPISODE OF ACCELERATED IDIOVENTRICULAR THIS PM, DOCTOR'S AWARE. OTHERWISE, NSR HR IN THE 70'S BPM c BBB/PVC. PATIENT DENIES CP/PRESSURE, SOB, N/V AND DIZZINESS. PATIENT NPO, HAS G-TUBE BOLUS FEED SCHEDULED PER ORDER, TOLERATING WELL. PATIENT ON RA, SATTING 95%, ON CONTINUES PULSE OX. PATIENT POST VOID BLADDER SCAN 158 MLS AT 1651. PATIENT RECEIVED SCHEDULED MEDS PER EMAR VIA G-TUBE. PATIENT A/OX4, VISIBLE TREMORS TO BUE'S, CALLS APPROPRIATELY AND ABLE TO MAKE NEEDS KNOWN. VITAL SIGNS REVIEWED. BED IN LOWEST POSITION. CALL LIGHT IN REACH.
[2024-11-07 03:25] VITALS: BP 106/80
[2024-11-07 05:15] LABS: BASOPHILS ABSOLUTE AUTO 0.04 K/mm3 (0.00-0.23); BASOPHILS PERCENT AUTO 1 % (0-2); EOSINOPHILS ABSOLUTE AUTO 0.17 K/mm3 (0.00-0.68); EOSINOPHILS PERCENT AUTO 2 % (0-6); Hematocrit 28.3 % (37.0-53.0); Hemoglobin 8.7 g/dL (13.5-17.5); IMMATURE GRAN ABSOLUTE AUTO 0.03 K/mm3 (0.00-0.10); IMMATURE GRAN PERCENT AUTO 0 % (0-1); LYMPHOCYTES ABSOLUTE AUTO 1.11 K/mm3 (0.84-5.20); LYMPHOCYTES PERCENT AUTO 13 % (21-46); MONOCYTES ABSOLUTE AUTO 0.71 K/mm3 (0.16-1.47); MONOCYTES PERCENT AUTO 8 % (4-13); Mean Corpuscular HGB Conc 30.7 g/dL (31.5-36.5); Mean Corpuscular Volume 102 fL (80-100); NEUTROPHILS ABSOLUTE AUTO 6.51 K/mm3 (1.96-9.15); NEUTROPHILS PERCENT AUTO 76 % (41-73); NRBC ABSOLUTE 0.00 K/mm3 (0.00-0.02); NRBC Auto 0.0 /100 WBC (0.0-0.2); Platelet Count 233 K/mm3 (150-400); RDW Coefficient Variation 14.0 % (11.7-14.2); RDW Standard Deviation 52.7 fL (35.1-46.3)
--- NOTE | 2024-11-07 05:36 | NUR ---
Shift Summary Pt on tele, one episode of AIVR for 9 seconds otherwise running sinus rythm. Pt abdomen was moderatly distended and a bit tender, he stated he felt full and bloated. Per his request I help is 2000 PEG tube feeding of Jevity. Pt's abdomen is feeling better this AM. Pt is rcving LR@150 as ordered. Continent voids with 1 assist using a urinal. Urine color is kristie in color. No c/o pain or nausea. Pt AOx3-4.
[2024-11-07 05:39] LABS: HIV-1 QNT BY NAAT (COPIES/ML) <20 cpy/mL; HIV-1 QNT BY NAAT INTERP Not Detected (Not Detected); HIV-1 QNT NAAT (LOG COPIES/ML) <1.30
[2024-11-07 06:07] LABS: Anion Gap 5.0 mmol/L (3-11); Blood Urea Nitrogen 29.0 mg/dL (8-24); CO2, Blood 30.0 mmol/L (21-32); Calcium, Blood 8.9 mg/dL (8.5-10.1); Chloride, Blood 109.0 mmol/L (98-108); Creatinine, Blood 1.39 mg/dL (0.60-1.20); Glucose, Blood 111.0 mg/dL (70-99); Potassium, Blood 4.1 mmol/L (3.5-5.5); Sodium, Blood 140.0 mmol/L (136-145)
[2024-11-07 07:27] VITALS: BP 144/60
--- NOTE | 2024-11-07 08:36 | NUR ---
CURTAIN MENDER NOTIFICATION NOTE: RECEIVED A CALL FROM [employer] AT 0836. PER [facility] PATIENT HAD 8 BEAT RUN OF VTACH. PATIENT LAYING IN BED CONVERSING c DR. MEDINA, DENIES CP/PRESSURE, SOB, N/V AND DIZZINESS. NO NEW ORDERS RECEIVED AT THIS TIME, CTM.
[2024-11-07] MEDS ORDERED: CIPR500 PO (13:14)
[2024-11-07 15:20] VITALS: BP 138/61
--- NOTE | 2024-11-07 15:27 | NUR ---
SHIFT/DISCHARGE SUMMARY: PATIENT HAS HAD NO NEW CHANGES THIS SHIFT. TELE DC'D PER ORDER. PATIENT DENIES CP/PRESSURE, SOB, N/V AND DIZZINESS. PATIENT RECEIVED SCHEDULED G-TF AND MEDS PER ORDER. PATIENT URINATING WELL W/OUT ANY DIFFICULTIES. PATIENT REPORTS OVERALL FEELING BETTER TODAY AND WOULD LIKE TO GO HOME. DR. MEDINA/ISABELLE NOTIFIED DURING AM ROUNDING. PATIENT HAS HAD NO COMPLAINTS OR DENIES NEW CONCERN THIS SHIFT. PIV DC'D. PATIENT DISCHARGE HOME. DISCHARGE INSTRUCTIONS PACKET GIVEN TO PATIENT. PATIENT EDUCATED ON ADMITTING DX'S OF GISSEL WHICH IMPROVED, TX, G TUBE FEEDING AT HOME, NEW RX AND TO F/U c PCP. PATIENT VERBALIZED UNDERSTANDING AND NO FURTHER QUESTIONS. RX WAS FAXED TO PATIENT PREFERRED [facility]. ALL PERSONAL BELONGINGS WERE SENT HOME c PATIENT. PATIENT LEFT THE ROOM AT 1326 TRANSPORTED VIA BY CNA. ANGEL TO PATIENT ENTRANCE.
== END 2024-11-07 15:45 | disposition home health service (06) | DRG 682 ==
LOC: ER 13:11 → MEDS 13:12
PROVIDERS: Emergency Medicine; Student in an Organized Health Care Education/Training Program; ADMIT Internal Medicine
DX: N17.9 Acute kidney failure, unspecified (principal); G93.41 Metabolic encephalopathy; E87.1 Hypo-osmolality and hyponatremia; B20 Human immunodeficiency virus [HIV] disease; J96.11 Chronic respiratory failure with hypoxia; I10 Essential (primary) hypertension; E78.5 Hyperlipidemia, unspecified; G62.9 Polyneuropathy, unspecified; I73.9 Peripheral vascular disease, unspecified; Z51.5 Encounter for palliative care; Z99.81 Dependence on supplemental oxygen; F17.210 Nicotine dependence, cigarettes, uncomplicated; I45.10 Unspecified right bundle-branch block; R29.6 Repeated falls; I87.2 Venous insufficiency (chronic) (peripheral); R00.1 Bradycardia, unspecified; J47.9 Bronchiectasis, uncomplicated; J43.9 Emphysema, unspecified; K22.2 Esophageal obstruction; N13.6 Pyonephrosis; R91.1 Solitary pulmonary nodule; I95.1 Orthostatic hypotension; Z87.01 Personal history of pneumonia (recurrent); Z90.49 Acquired absence of other specified parts of digestive tract; Z98.890 Other specified postprocedural states; Z95.820 Peripheral vascular angioplasty status with implants and grafts; Z88.0 Allergy status to penicillin; Z79.82 Long term (current) use of aspirin; Z79.02 Long term (current) use of antithrombotics/antiplatelets; Z79.899 Other long term (current) drug therapy
CPT/HCPCS: 0528U; 36415; 70450; 71046; 71250; 74176; 76770; 80048; 80053; 81001; 82947; 83735; 84100; 85025; 86361; 87070; 87077; 87086; 87186; 87205; 87536; 92526; 92610; 93005; 93010; 94640; 94664; 94762; 96360; 96361; 96365; 96366; 96372; 99285-25; A9270; G0378; J0696; J1650; J7030; J7050; J7060; J7120

== ENCOUNTER 2024-12-15 15:15 | Emergency (ER) | payer MEDICARE, OTHER ==
[~2024-12-15] VITALS: Ht 175.3 cm; Wt 65.8 kg
[~2024-12-15 15:15] MED LIST changes: +Bisoprolol Fumar5 MG PO; +CIPR500 PO; +FERSU300 PO; +FUROSEMIDE20 MG PO; +MIDO5 PT; +POTA10T PO; +PRAVASTATIN SOD40 MG PO
[2024-12-15 15:53] LABS: BASOPHILS ABSOLUTE AUTO 0.03 K/mm3 (0.00-0.23); BASOPHILS PERCENT AUTO 0 % (0-2); EOSINOPHILS ABSOLUTE AUTO 0.17 K/mm3 (0.00-0.68); EOSINOPHILS PERCENT AUTO 2 % (0-6); Hematocrit 32.1 % (37.0-53.0); Hemoglobin 10.2 g/dL (13.5-17.5); IMMATURE GRAN ABSOLUTE AUTO 0.03 K/mm3 (0.00-0.10); IMMATURE GRAN PERCENT AUTO 0 % (0-1); LYMPHOCYTES ABSOLUTE AUTO 2.05 K/mm3 (0.84-5.20); LYMPHOCYTES PERCENT AUTO 22 % (21-46); MONOCYTES ABSOLUTE AUTO 0.90 K/mm3 (0.16-1.47); MONOCYTES PERCENT AUTO 10 % (4-13); Mean Corpuscular HGB Conc 31.8 g/dL (31.5-36.5); Mean Corpuscular Volume 101 fL (80-100); NEUTROPHILS ABSOLUTE AUTO 6.16 K/mm3 (1.96-9.15); NEUTROPHILS PERCENT AUTO 66 % (41-73); NRBC ABSOLUTE 0.00 K/mm3 (0.00-0.02); NRBC Auto 0.0 /100 WBC (0.0-0.2); Platelet Count 219 K/mm3 (150-400); RDW Coefficient Variation 14.9 % (11.7-14.2); RDW Standard Deviation 56.2 fL (35.1-46.3)
[2024-12-15 16:06] LABS: Alanine Aminotransfer (ALT/SGP 15.0 U/L (12-78); Albumin, Blood 3.1 g/dL (3.4-5.0); Albumin/Globulin Ratio 0.7 (0.8-1.8); Anion Gap 9.0 mmol/L (3-11); Aspartate Aminotrans (AST/SGOT 14.0 U/L (12-37); Bilirubin, Total 0.3 mg/dL (0.1-1.0); Blood Urea Nitrogen 55.0 mg/dL (8-24); CO2, Blood 23.0 mmol/L (21-32); Calcium, Blood 9.2 mg/dL (8.5-10.1); Chloride, Blood 106.0 mmol/L (98-108); Creatinine, Blood 2.32 mg/dL (0.60-1.20); Globulin, Blood 4.6 g/dL (2.2-4.0); Glucose, Blood 97.0 mg/dL (70-99); Potassium, Blood 4.3 mmol/L (3.5-5.5); Sodium, Blood 134.0 mmol/L (136-145); Total Protein, Blood 7.7 g/dL (6.4-8.2)
[2024-12-15 17:00] VITALS: BP 118/51
[2024-12-15] MEDS ORDERED: ESCITALOPRAM OX20 M1 PO (17:25)
[2024-12-15] MEDS ORDERED: LANSOPRAZOLE30 M1 PO (17:26)
[2024-12-15] MEDS ORDERED: ATOR40TA PO (17:29)
[2024-12-15] MEDS ORDERED: ALBU8HFA2 INH (17:29)
== END 2024-12-15 17:50 | disposition home or self-care (01) ==
LOC: ER 15:15
PROVIDERS: Emergency Medicine
DX: R53.1 Weakness (principal); R29.6 Repeated falls; I12.9 Hypertensive chronic kidney disease with stage 1 through stage 4 chronic kidney disease, or unspecified chronic kidney disease; N18.9 Chronic kidney disease, unspecified; J44.9 Chronic obstructive pulmonary disease, unspecified; Z21 Asymptomatic human immunodeficiency virus [HIV] infection status; Z88.0 Allergy status to penicillin; Z79.02 Long term (current) use of antithrombotics/antiplatelets; Z79.82 Long term (current) use of aspirin; Z79.899 Other long term (current) drug therapy
CPT/HCPCS: 70450; 80053; 85025; 93005; 93010; 99285-25

== ENCOUNTER 2024-12-31 07:44 | Day surgery (SDC) | payer MEDICARE, OTHER ==
[~2024-12-31] VITALS: Ht 185.4 cm; Wt 102.0 kg
[2024-12-31] VITALS (7 sets, daily range): BP systolic 111–136; BP diastolic 49–56
[~2024-12-31 07:44] MED LIST changes: +ALBU8HFA2 INH; +ALPRAZOLAM PO; +ESCITALOPRAM OX20 M1 PO; +IPRAT-ALBUT 0.5-3 ML IH; +LANSOPRAZOLE30 M1 PO; +LOSA25 PO; +STIOLTO RESPIMAT4 G1 IH
[2024-12-31] MEDS ORDERED: SYMBICORT 160-4.6 GM INH (08:26)
[2024-12-31] MEDS ORDERED: ELIQUIS5 M2 PO (08:26)
[2024-12-31] MEDS ORDERED: FURO20 PO (08:27)
[2024-12-31] MEDS ORDERED: JARDIANCE10 MG PO (08:27)
[2024-12-31] MEDS ORDERED: LISI5 PO (08:27)
[2024-12-31] MEDS ORDERED: NITR.4SL SL (08:28)
[2024-12-31] MEDS ORDERED: METO25ER PO (08:28)
[2024-12-31] MEDS ORDERED: NARCAN4 M1 (08:28)
[2024-12-31] MEDS ORDERED: MIRT30ST PO (08:29)
[2024-12-31] MEDS ORDERED: ALDACTONE25 MG PO (08:29)
[2024-12-31] MEDS ORDERED: BACLOFEN5 M1 PO (08:49)
[2024-12-31] MEDS ORDERED: BISOPROLOL FUM2.5 MG PO (08:49)
[2024-12-31] MEDS ORDERED: THERA-D2000 UNIT PO (08:50)
[2024-12-31] MEDS ORDERED: IPRAT-ALBUT 0.5-3 ML INH (08:51)
[2024-12-31] MEDS ORDERED: LANS30EC PO (08:52)
[2024-12-31] MEDS ORDERED: STIOLTO RESPIMAT4 G2 INH (08:53)
--- NOTE | 2024-12-31 10:55 | NUR ---
PT RETURNED TO RECOVERY ROOM IN BED. G-TUBE EXCHANGE SITE NO BLEEDING, NO HEMATOMA WITH INTACT DRESSING.
--- NOTE | 2024-12-31 11:11 | NUR ---
NO CHANGES TO G-TUBE EXCHANGE SITE. DISCHARGE INSTRUCTIONS REVIEWED ALL QUESTIONS ANSWERED. PT ESCORTED OUT VIA WHEELCHAIR ESCORT.
== END 2024-12-31 11:15 | disposition home or self-care (01) ==
LOC: MHTC 07:44
DX: Z43.1 Encounter for attention to gastrostomy (principal); K22.2 Esophageal obstruction; I73.9 Peripheral vascular disease, unspecified; G62.9 Polyneuropathy, unspecified; I87.2 Venous insufficiency (chronic) (peripheral); I10 Essential (primary) hypertension; E78.5 Hyperlipidemia, unspecified; K21.9 Gastro-esophageal reflux disease without esophagitis; J44.9 Chronic obstructive pulmonary disease, unspecified; Z21 Asymptomatic human immunodeficiency virus [HIV] infection status; Z87.891 Personal history of nicotine dependence; Z79.02 Long term (current) use of antithrombotics/antiplatelets; Z79.82 Long term (current) use of aspirin; Z79.899 Other long term (current) drug therapy; Z88.0 Allergy status to penicillin; Z95.820 Peripheral vascular angioplasty status with implants and grafts
CPT/HCPCS: 49450; C1769; Q9967

== ENCOUNTER 2025-04-01 11:52 | Inpatient (IN) | payer MEDICARE, OTHER ==
[~2025-04-01] VITALS: Ht 170.2 cm; Wt 58.6 kg
[~2025-04-01 11:52] MED LIST changes: +ALDACTONE25 MG PO; +BACLOFEN5 M1 PO; +BISOPROLOL FUM2.5 MG PO; +ELIQUIS5 M2 PO; +FURO20 PO; +IPRAT-ALBUT 0.5-3 ML INH; +JARDIANCE10 MG PO; +LANS30EC PO; +LISI5 PO; +MIRT30ST PO; +NARCAN4 M1; +NITR.4SL SL; +STIOLTO RESPIMAT4 G2 INH; +SYMBICORT 160-4.6 GM INH; +THERA-D2000 UNIT PO
[2025-04-01] MEDS ORDERED: CefTRIAXone Sodium 2,000 MG in NS 100 ML IV ONE (12:30)
[2025-04-01 13:03] LABS: pH Blood Venous 7.36 (7.34-7.37)
[2025-04-01 13:17] LABS: BASOPHILS ABSOLUTE AUTO 0.02 K/mm3 (0.00-0.23); BASOPHILS PERCENT AUTO 0 % (0-2); EOSINOPHILS ABSOLUTE AUTO 0.01 K/mm3 (0.00-0.68); EOSINOPHILS PERCENT AUTO 0 % (0-6); Hematocrit 37.1 % (37.0-53.0); Hemoglobin 11.7 g/dL (13.5-17.5); IMMATURE GRAN ABSOLUTE AUTO 0.08 K/mm3 (0.00-0.10); IMMATURE GRAN PERCENT AUTO 1 % (0-1); LYMPHOCYTES ABSOLUTE AUTO 0.72 K/mm3 (0.84-5.20); LYMPHOCYTES PERCENT AUTO 5 % (21-46); MONOCYTES ABSOLUTE AUTO 0.87 K/mm3 (0.16-1.47); MONOCYTES PERCENT AUTO 6 % (4-13); Mean Corpuscular HGB Conc 31.5 g/dL (31.5-36.5); Mean Corpuscular Volume 105 fL (80-100); NEUTROPHILS ABSOLUTE AUTO 13.07 K/mm3 (1.96-9.15); NEUTROPHILS PERCENT AUTO 89 % (41-73); NRBC ABSOLUTE 0.00 K/mm3 (0.00-0.02); NRBC Auto 0.0 /100 WBC (0.0-0.2); Platelet Count 163 K/mm3 (150-400); RDW Coefficient Variation 13.7 % (11.7-14.2); RDW Standard Deviation 52.8 fL (35.1-46.3)
[2025-04-01 13:20] LABS: Source, Urine Straight Cath
[2025-04-01 13:25] LABS: Bilirubin, Urine Neg (Neg); Glucose Qualitative, Urine 1+ (Neg); Ketones, Urine Neg (Neg); Leukocyte Esterase, Urine 3+ (Neg); Protein, Urine 2+ (Neg); Specific Gravity, Urine 1.010 (1.003-1.022); Urobilinogen, Urine NORM (Normal)
[2025-04-01 13:29] LABS: Prothrombin Time Results 11.5 Sec (9.7-11.5)
[2025-04-01 13:34] LABS: Color, Urine Pale Yellow (P-Yellow)
[2025-04-01 13:34] LABS: CORONAVIRUS COVID-19 AG Negative (NEGATIVE)
[2025-04-01 13:35] LABS: White Blood Cells, Urine 25-50 /hpf (0-5)
[2025-04-01 13:43] LABS: Alanine Aminotransfer (ALT/SGP 15.0 U/L (12-78); Albumin, Blood 3.3 g/dL (3.4-5.0); Albumin/Globulin Ratio 0.8 (0.8-1.8); Anion Gap 6.0 mmol/L (3-11); Aspartate Aminotrans (AST/SGOT 15.0 U/L (12-37); Bilirubin, Total 0.4 mg/dL (0.1-1.0); Blood Urea Nitrogen 20.0 mg/dL (8-24); CO2, Blood 27.0 mmol/L (21-32); Calcium, Blood 9.3 mg/dL (8.5-10.1); Chloride, Blood 109.0 mmol/L (98-108); Creatinine, Blood 1.11 mg/dL (0.60-1.20); Globulin, Blood 4.3 g/dL (2.2-4.0); Glucose, Blood 134.0 mg/dL (70-99); Magnesium, Blood 2.1 mg/dL (1.6-2.4); Phosphorus, Blood 2.0 mg/dL (2.5-4.9); Potassium, Blood 4.2 mmol/L (3.5-5.5); Sodium, Blood 138.0 mmol/L (136-145); Total Protein, Blood 7.6 g/dL (6.4-8.2)
[2025-04-01] MEDS ORDERED: FLU VACC TS2025(65UP)/MF59C/PF 45 MCG/0.5 ML SYRINGE IM SCH (15:50)
--- NOTE | 2025-04-01 16:00 | NUR ---
PALLIATIVE CARE CONSULT RECEIVED FOR GI, INFECTION, AD/POLST AND ADVANCED CARE PLANNING. SPOKE TO MD ABOUT CONCERNS. PT IS NOT DECISIONAL. REVIEWED MEDICAL RECORD, PAST VISITS. AUNT SACHA IS LISTED NOK. CALLED SACHA AND SPOKE TO HER ABOUT ADMISSION AND NEED FOR CODE STATUS. ACCORDING TO SACHA PT WAS NEVER ON HOSPICE SERVICES BUT WAS FOLLOWED BY [facility] AND THEY STOPPED VISITS ABOUT ONE MONTH AGO FOR UNKNOWN REASON. LAST TIME THEY SPOKE ABOUT CODE STATUS HE WANTED TO HAVE CPR IF NEEDED. [facility] REQUESTED SHE CALL 911 AFTER THEIR VISIT. CALLED DR. SOLORIO AND UPDATED HIM ON CONVERSATION.
[2025-04-01 16:51] VITALS: BP 98/52
[2025-04-01 17:08] VITALS: BP 101/53
[2025-04-01] MEDS ORDERED: MIDO5 PO (17:23)
[2025-04-01] MEDS ORDERED: BACL10 PO (17:24)
[2025-04-01] MEDS ORDERED: FERSU300 PT (17:25)
[2025-04-01] MEDS ORDERED: Ampicillin Sod/Sulbactam Sod 3 GM in NS 100 ML IV SCH (18:00)
[2025-04-01 19:49] VITALS: BP 93/51
[2025-04-01] MEDS ORDERED: Albuterol 2.5 MG/3 ML VIAL INH PRN (19:50)
[2025-04-01] MEDS ORDERED: Ipratropium/Albuterol SulF 2.5-0.5MG/3 ML Amp INH SCH (19:50)
[2025-04-01 19:51] VITALS: BP 89/53
--- NOTE | 2025-04-01 20:14 | NUR ---
UPDATE: CALLED TO NOTIFY DR. CURRAN ABOUT PATIENTS FIRST BP CHECK WAS 93/51 WITH MAP OF 65, AND SECOND BP CHECK WAS 89/53 WITH MAP OF 65. HR IS IN THE 90'S BPM. PATIENT HAS A HX OF END STAGE COPD AND THE WEIGHT CHARTED SAYS 56.7KG. PATIENT ALSO CURRENTLY HAS CONTINUOUS LR RUNNING AT 75ML/HR. MD RESPONDED STATING "LET'S DO X1 LR LITTER BOLUS AND THEN CONTINUE THE 75ML/HR AFTER THAT AND RECHECK VITALS."
[2025-04-01] MEDS ORDERED: Lactobacil 2-S.Thermo-Bifido 1 1 Cap PT SCH (21:00)
[2025-04-02] VITALS (8 sets, daily range): BP systolic 99–123; BP diastolic 49–70
[2025-04-02 02:47] LABS: Source, Urine Foley catheter
[2025-04-02 02:51] LABS: Bilirubin, Urine Neg (Neg); Glucose Qualitative, Urine Neg (Neg); Ketones, Urine Neg (Neg); Leukocyte Esterase, Urine 3+ (Neg); Protein, Urine 2+ (Neg); Specific Gravity, Urine 1.010 (1.003-1.022); Urobilinogen, Urine NORM (Normal)
[2025-04-02 03:02] LABS: Color, Urine Pale Yellow (P-Yellow)
[2025-04-02 03:04] LABS: Red Blood Cells, Urine 25-50 /hpf (0-2); White Blood Cells, Urine 25-50 /hpf (0-5)
--- NOTE | 2025-04-02 03:47 | NUR ---
SHIFT SUMMARY: PATIENT IS A&OX3 WHEN WOKEN UP WITH VERBAL STIMULI, HE IS DISORIENTED TO THE DATE/TIME BUT IS EASILY REORIENTED. PATIENT FALLS BACK ASLEEP QUICKLY AFTER ANSWERING VERBAL QUESTIONS. TELE HAS BEEN SHOWING SINUS RHYTHM WITH 70'S-80'S BPM. PATIENT HAD LOW SBP BETWEEN 89-99, MD WAS NOTIFIED WHICH X1 1L LR BOLUS WAS ORDERED AND THEN TO CONTINUE THE CONTINUOUS LR @ 75ML/HR. SINCE THE BOLUS AND CONTINUOUS FLUIDS, PATIENTS MOST RECENT SBP AT 0325 SBP WAS 101. PATIENT HAS DENIED PAIN THROUGHOUT THE SHIFT. PATIENT HAS A PEG TUBE ON HIS ABD IN THE LEFT QUADRANT. PATIENTS ORDERED MEDS WERE DISOLVED IN WATER AND GIVEN VIA PEG TUBE. PATIENT IS NPO FOR ORAL INTAKE. FLORES WAS PLACED DUE TO RETENTION, FLORES IS DRAINING TO GRAVITY WITH NO KINKS IN TUBING WITH YELLOW URINE OUTPUT. Q2H REPOSITIONING. CONTINUOUS LR RUNNING AT 75ML/HR AND GIVEN IV ABX PER EMAR. BED ALARM ON A SAFETY PRECAUTION. PATIENT IS CURRENTLY LAYING IN BED WITH CALL LIGHT IN REACH.
[2025-04-02 04:00] LABS: Hematocrit 30.5 % (37.0-53.0); Hemoglobin 9.6 g/dL (13.5-17.5); Mean Corpuscular HGB Conc 31.5 g/dL (31.5-36.5); Mean Corpuscular Volume 104 fL (80-100); NRBC ABSOLUTE 0.00 K/mm3 (0.00-0.02); NRBC Auto 0.0 /100 WBC (0.0-0.2); Platelet Count 139 K/mm3 (150-400); RDW Coefficient Variation 13.8 % (11.7-14.2); RDW Standard Deviation 52.7 fL (35.1-46.3)
[2025-04-02 04:17] LABS: Albumin, Blood 2.3 g/dL (3.4-5.0); Anion Gap 7 mmol/L (3-11); Blood Urea Nitrogen 18 mg/dL (8-24); CO2, Blood 25 mmol/L (21-32); Calcium, Blood 8.6 mg/dL (8.5-10.1); Chloride, Blood 112 mmol/L (98-108); Creatinine, Blood 0.92 mg/dL (0.60-1.20); Glucose, Blood 100 mg/dL (70-99); Magnesium, Blood 1.9 mg/dL (1.6-2.4); Phosphorus, Blood 2.5 mg/dL (2.5-4.9); Potassium, Blood 3.8 mmol/L (3.5-5.5); Sodium, Blood 140 mmol/L (136-145)
[2025-04-02] MEDS ORDERED: Enoxaparin 40 MG/0.4 ML SYR SC SCH (09:00)
[2025-04-02] MEDS ORDERED: Magnesium Hydroxide Conc 10 ML UDC PT PRN (17:05)
[2025-04-02] MEDS ORDERED: Docusate Sodium Liquid 100 MG UDC PT PRN (17:05)
--- NOTE | 2025-04-02 18:45 | NUR ---
SHIFT SUMMARY PT IS A&O X4, ABLE TO UTILIZE CALL LIGHT TO EXPRESS NEEDS. PT IS RAMPART. BEDREST AT THIS TIME DUE TO WEAKNESS, 1-2 PERSON ASSIST TO REPOSITION IN BED. PT TITRATED DOWN TO ROOM AIR THIS SHIFT, SATTING > 95% AND DENIES SOB. PRODUCVE COUGH NOTED WITH THICK WHITE SPUTUM. PT INDEPENDENT WITH SUCTION. BPs ARE STABLE AND HAVE IMPROVED SINCE BEGINNING OF SHIFT WITH MAPS AROUND 70. HR 80-90S, NO C/O CHEST PAIN. PT ADVANCED TO MED STATUS W/OUT TELE. PEG TUBE USED FOR MED ADMINISTRATION, LIFE UNDERWRITER HAS BEEN CONSULTED, TUBE FEEDS TO BEGIN TONIGHT PER ORDERS. PT IS NPO W/ ORAL CARE PER ORDERS. FLORES IN PLACE AND DRAINING TO GRAVITY. LR INFUSING, IV ABX PER ORDERS. PT'S AUNT WILLEM UNABLE TO COME VISIT DUE TO THE PT BEING HER USUAL RIDE, BUT SHE CALLED AND WAS UPDATED BY THIS RN THIS AFTERNOON. SPOKEN WITH ABOUT BLOOD CULTURES, NO CHANGES IN ABX ORDERS AT THIS TIME. SEE NOTES FOR UPDATES.
[2025-04-02] MEDS ORDERED: Atarax10 MG PO (20:05)
[2025-04-02] MEDS ORDERED: Carbamide Peroxide Otic Soln BOTHEARS SCH (21:00)
[2025-04-03] MEDS ORDERED: HYDHCL25 PO (01:37)
[2025-04-03 03:47] VITALS: BP 126/72
[2025-04-03 04:59] LABS: Hematocrit 30.8 % (37.0-53.0); Hemoglobin 9.7 g/dL (13.5-17.5); Mean Corpuscular HGB Conc 31.5 g/dL (31.5-36.5); Mean Corpuscular Volume 103 fL (80-100); NRBC ABSOLUTE 0.00 K/mm3 (0.00-0.02); NRBC Auto 0.0 /100 WBC (0.0-0.2); Platelet Count 134 K/mm3 (150-400); RDW Coefficient Variation 13.6 % (11.7-14.2); RDW Standard Deviation 51.3 fL (35.1-46.3)
[2025-04-03 05:14] LABS: Anion Gap 7.0 mmol/L (3-11); Blood Urea Nitrogen 21.0 mg/dL (8-24); CO2, Blood 24.0 mmol/L (21-32); Calcium, Blood 8.9 mg/dL (8.5-10.1); Chloride, Blood 113.0 mmol/L (98-108); Creatinine, Blood 0.94 mg/dL (0.60-1.20); Glucose, Blood 128.0 mg/dL (70-99); Magnesium, Blood 2.0 mg/dL (1.6-2.4); Phosphorus, Blood 1.9 mg/dL (2.5-4.9); Potassium, Blood 3.3 mmol/L (3.5-5.5); Sodium, Blood 141.0 mmol/L (136-145)
[2025-04-03] MEDS ORDERED: Potassium Phosphate Dibasic 20 MM in Dextrose 5% 500 ML IV STA (06:15)
--- NOTE | 2025-04-03 06:18 | NUR ---
SHIFT SUMMARY: PT IS A&OX4 CALM AND COOPERATIVE. ABLE TO MAKE NEEDS KNOWN AND CALL APPROPRIATELY. PT IS [place] AND HAS TREMORS AT BASELINE. VSS ON RA. PT HAS OCCASIONAL PRODUCTIVE COUGH. PT USES SUCTION FOR SECRETIONS. PEG TUBE FEEDS STARTED TODAY AT 215 ML/HR FOR A TOTAL OF 415 ML. PT TOLERATED WELL. LR @ 75 ML/HR. PT KEPT NPO. FLORES IN PLACE DRAINING TO GRAVITY. MD NOTIFIED OF K: 3.3 AND PHOS: 1.9. MD TO ORDER IN [facility]. BED IS LOW AND LOCKED. CALL LIGHT WITHIN REACH. CONTINUE WITH CURRENT PLAN OF CARE.
[2025-04-03] MEDS ORDERED: NS 250 ML IV PRN (07:25)
[2025-04-03 07:30] VITALS: BP 126/66
[2025-04-03] MEDS ORDERED: Gabapentin 250 MG/5 ML ORAL SYRINGE PT SCH (10:06)
--- NOTE | 2025-04-03 10:50 | NUR ---
MORNING SUMMARY / TRANSFER NOTE PT IS A&O X4, COOPERATIVE WITH CARE. HARD OF HEARING. TREMORS IN HANDS AND LEGS NOTED, PT STATES THESE ARE BASELINE. 1 ASSIST REQUIRED TO AMBULATE. PT MAINTAINS O2 SATS > 95% ON ROOM AIR, DENIES SOB. PT IS MEDICAL STATUS WITHOUT TELE. HR 90s WITH STABLE BPs, MAPs > 65. NPO MAINTAINED DUE TO ASPIRATION RISK. PEG TUBE FEEDING GIVEN THIS MORNING PER ORDERS, TOLERATED WELL. PT TO BE TRANSFERRED TO MEDICAL FLOOR, ROOM 355. REPORT GIVEN TO ROSA GARCIA AT 1036. PT MADE AWARE OF ROOM CHANGE AND MOVED UPSTAIRS WITH NICOLE PELAYO AND POWER PLANT INSPECTOR. PATIENT'S BELONGINGS IN DISPOSITION UPON TRANSFER, IV INFUSING LR AND K PHOS PER ORDERS. NO FURTHER NOTES FROM THIS RN.
--- NOTE | 2025-04-03 10:55 | NUR ---
TRANSFER NOTE: A&OX4 AT TIME OF TRANSFER. PT ASSISTED TO BED. IV LR AND K-PHOS RUNNING PER JUN. TUBE FEED COMPLETED UPON TRANSFER. VSS. DENIES SOB AND/OR CHEST PAIN. STS TOLERATED TUBE FEEDS WELL WITHOUT ABD PAIN. LYING IN BED. BED LOCKED AND IN THE LOWEST POSITION. CALL LT WITHIN REACH. ORIENTED TO ROOM AND SURROUNDINGS.
--- NOTE | 2025-04-03 13:33 | NUR ---
NOTE POTASSIUM AND LR RUNNING AT Y SITE, CONFIRMED WITH PHARMACY. DECREASED RATE OF POTASSIUM.
[2025-04-03 15:11] VITALS: BP 130/62
--- NOTE | 2025-04-03 16:45 | NUR ---
TUBE FEED NOTE SECOND TUBE FEED OF 04/03 STARTED. 100ML FLUSH BEFORE, FEED SET FOR 300 ML/HR, 100ML FLUSHED PER ORDER AT END OF FEED. NEW BOTTLE AND TUBING WITH THIS FEED, LABELED.
--- NOTE | 2025-04-03 18:44 | NUR ---
END OF SHIFT NOTE PATIENT RESTING IN BED. A&O4, ABLE TO MAKE NEEDS KNOWN, CALL LIGHT IN REACH. IV INFUSING TO ORDER. TUBE FEED INFUSED TO ORDER. PATIENT AMBULATES TO BATHROOM WITH SBA DUE TO LINES AND CORDS. PATIENT WORKED WITH PHYSICAL THERAPY TODAY, WALKED HALLS. FAMILY WAS IN TODAY. NO OTHER CONCERNS FOR THIS SHIFT.
[2025-04-03 19:20] VITALS: BP 133/72
[2025-04-04 03:43] VITALS: BP 134/71
--- NOTE | 2025-04-04 06:18 | NUR ---
NOC SHIFT SUMMARY PT A&OX4, VSS, VOIDING, AND DENIED PAIN. TUBE FEEDING GIVEN PER ORDER. LR CONT TO INFUSE. IV ABX GIVEN PER ORDER. NO ACUTE CHANGES. CALL LIGHT WITHIN REACH AND PT ABLE TO MAKE NEEDS KNOWN.
[2025-04-04 07:37] VITALS: BP 146/70
[2025-04-04 10:26] LABS: Anion Gap 8.0 mmol/L (3-11); Blood Urea Nitrogen 14.0 mg/dL (8-24); CO2, Blood 25.0 mmol/L (21-32); Calcium, Blood 8.6 mg/dL (8.5-10.1); Chloride, Blood 112.0 mmol/L (98-108); Creatinine, Blood 0.88 mg/dL (0.60-1.20); Glucose, Blood 111.0 mg/dL (70-99); Magnesium, Blood 1.9 mg/dL (1.6-2.4); Phosphorus, Blood 2.6 mg/dL (2.5-4.9); Potassium, Blood 3.5 mmol/L (3.5-5.5); Sodium, Blood 141.0 mmol/L (136-145)
--- NOTE | 2025-04-04 10:35 | NUR ---
NOTE TUBE FEED STARTED, WITH FLUSH DONE BEFORE AND AFTER TO ORDER.
[2025-04-04] MEDS ORDERED: AMOX-CLAV200 MG/51 PT (12:14)
[2025-04-04] MEDS ORDERED: CARB10OTL BOTHEARS (12:15)
[2025-04-04] MEDS ORDERED: Docusate S50 MG/5 ML PT (12:17)
[2025-04-04] MEDS ORDERED: LACT PT (12:19)
--- NOTE | 2025-04-04 14:25 | NUR ---
DISCHARGE NOTE PATIENT INSTRUCTED ABOUT DISCHARGE PLANNING, FOLLOW UP APPOINTMENTS AND IMPORTANT SCANS TO HAVE DONE WITH PCP PER DR CATALAN WHO IS DISCHARGING HIM FROM THE HOSPITAL. PATIENT VERABLIZED UNDERSTANDING. IV X2 REMOVED BY DIRECTOR OF SPORTS PERFORMANCE, CATHETER REMOVED BY NURSE. PATIENT INSTRUCTED S/S TO WATCH FOR, WHEN TO RETURN TO THE HOSPITAL IF NEEDED, AND WHEN TO HAVE FOLLOW UP APPOINTMENTS. PAPER WORK DISCUSSED. CAB CALLED FOR PATIENT FOR PATIENT PAY RIDE. [employer] AT 1430, PATIENT DRESSED BY STAFF, AND WHEELED DOWN TO LOBBY FOR [employer].
[2025-04-04] MEDS ORDERED: Amoxicillin/Clavulanate K 600 MG/5 ML 5ML UDC PO SCH (21:00)
[2025-04-04] MEDS ORDERED: Amoxicillin/Clavulanate K 200 MG/5 ML UDC 5ML PO SCH (21:00)
== END 2025-04-04 14:14 | disposition home or self-care (01) | DRG 871 ==
LOC: ER 11:52 → PCU 15:31 → MEDS 04-03 10:55
PROVIDERS: Emergency Medicine; Internal Medicine; Student in an Organized Health Care Education/Training Program; ADMIT Internal Medicine
DX: A41.9 Sepsis, unspecified organism (principal); G92.8 Other toxic encephalopathy; J69.0 Pneumonitis due to inhalation of food and vomit; J96.01 Acute respiratory failure with hypoxia; J18.9 Pneumonia, unspecified organism; N39.0 Urinary tract infection, site not specified; J44.0 Chronic obstructive pulmonary disease with (acute) lower respiratory infection; Z66 Do not resuscitate; Z51.5 Encounter for palliative care; I73.9 Peripheral vascular disease, unspecified; I11.0 Hypertensive heart disease with heart failure; I50.9 Heart failure, unspecified; Z21 Asymptomatic human immunodeficiency virus [HIV] infection status; R29.6 Repeated falls; D64.9 Anemia, unspecified; F17.210 Nicotine dependence, cigarettes, uncomplicated; E78.5 Hyperlipidemia, unspecified; J43.9 Emphysema, unspecified; K22.2 Esophageal obstruction; R65.20 Severe sepsis without septic shock; E87.6 Hypokalemia; E83.39 Other disorders of phosphorus metabolism; Z96.0 Presence of urogenital implants; Z90.49 Acquired absence of other specified parts of digestive tract; Z98.49 Cataract extraction status, unspecified eye; Z79.82 Long term (current) use of aspirin; Z79.899 Other long term (current) drug therapy
CPT/HCPCS: 36415; 51701; 70450; 71045; 71260; 74177; 80048; 80053; 80069; 81001; 82803; 83605; 83735; 84100; 84145; 84484; 85025; 85027; 85610; 85730; 87040; 87077; 87086; 87186; 87426-QW; 93005; 93010; 94640; 94664; 94760; 96361; 96365-59; 97116; 97162; 99285-25; A9270; J0295; J0456; J0696; J1650; J7050; J7060; J7120; Q9967